=== PATIENT | female | born 1960 | race Caucasian/White ===

== ENCOUNTER 2022-08-29 17:29 | Inpatient (IN) | payer OTHER ==
--- OUTSIDE RECORDS SUMMARY | 2022-08-29 17:34 | XMS REPORT | Continuity of Care Document ---
:1960 Author Organization [facility] t Address [address] [place] [address] Care Team Providers Name Role Phone MICHALE HAYWARD Primary Care Physician Unavailable JASPER KENNEDY Attending Clinician Unavailable Doctor Unassigned, [place] Attending Clinician Unavailable Jasper Kennedy MD Attending Clinician [phone] Michael Hayward NP Attending Clinician INNA IVEY Attending Clinician Unavailable Inna Ivey MD Attending Clinician [phone] Only, Adc Test Attending Clinician Unavailable MICHAEL HAYWARD Attending Clinician Unavailable Gurdeep RAYGOZA, Anny Attending Clinician Unavailable Zion Garcia MD Attending Clinician Ange Grimaldo MD Attending Clinician ANGE GRIMALDO Attending Clinician Unavailable Radiology Attending Clinician Unavailable RADIOLOGY Attending Clinician Unavailable ALVA KIRBY Attending Clinician Unavailable Alva Jovel Attending Clinician Carole CARDENAS, Alva Attending Clinician Unavailable Alin Maya MD Attending Clinician Tyler King MD Attending Clinician Chase Chappell DO Attending Clinician [facility] Attending Clinician Unavailable Verito Irizarry MD Attending Clinician VERITO IRIZARRY Attending Clinician Unavailable RISHABH JOYNER Attending Clinician Unavailable Christie Lopez MD Attending Clinician Rishabh Joyner DO Attending Clinician Rishabh Joyner DO Attending Clinician DR BARRINGTON NARVAEZ Attending Clinician Unavailable DR ENOC HENSON Attending Clinician Unavailable JASPER KENNEDY Admitting Clinician Unavailable Jasper Kennedy MD Admitting Clinician [phone] B[place] NARVAEZ Admitting Clinician Unavailable DR ENOC HENSON Admitting Clinician Unavailable Payers Payer Name Policy Type Policy Number Effective Date Expiration Date Nic anglin [facility] [id number] 2020 00:00:00 PLUS Problems Condition Condition Condition Status Onset Resolution Last Treating Co mments Source Name Details Category Date Date Treatment Clinician Date Arthritis Arthritis Disease Active Overview: Univers of right of right 5-03 Formattin ity of acromiocla acromiocla 00:00: g of this [place] vicular vicular 00 note Medical joint joint might be Branch different from the original. 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 00 Ce nter disorder disorder Primary Primary Disease Active [facility] 3-10 [facility] Hyperchole Hyperchole Disease Active [facility] steremia steremia 9-24 [facility] Acute Acute Disease Active [facility] bilateral bilateral 9-11 [facility] low back low back 00:00: Medica l pain pain 00 Center without without sciatica sciatica Encounter Encounter Disease Active [facility] for for 9-11 [facility] long-term long-term 00:00: Medi florentin current current 00 Center use of use of medication medication Allergies, Adverse Reactions, Alerts Allergy Allergy Status Severity Reaction(s) Onset Inactive Treating Comm ents Source Name Type Date Date Clinician NO KNOWN Drug Active Univers ALLERGIE Class ity of [facility] NO KNOWN Allergy Active [facility] Family History Family Member Diagnosis Comments Start Date Stop Date Source Natural father COPD [facility] Social History Social Habit Start Date Stop Date Quantity Comments Source History of Current smoker University of tobacco use [facility] Exposure to 2022-07-22 2022-08-01 Not sure University of SARS-CoV-2 00:00:00 10:02:00 [facility] (event) Branch Alcohol intake 2022-04-18 2022-04-18 Current drinker LORENE rossi [place] 00:00:00 00:00:00 of alcohol [facility] (finding) Tobacco use and 2019-02-25 2019-02-25 Never used LORENE Nuno exposure 00:00:00 00:00:00 [facility] Center Sex Ass[birth year] At [birth year] F LORENE Nuno 00:00:00 00:00:00 [facility] Center Smoking Status Start Date Stop Date Source Former smoker 2019-02-25 00:00:00 2019-02-25 00:00:00 [facility] Medications Ordered Filled Start Stop Current Ordering Indication Dosage Frequency Signature Comments Components Source Medication Medication Date Date Medication? Clinician (SIG) Name Name naproxen 2021- Yes 250mg Take 250 Univ ers 250 mg 7-15 mg by ity of tablet 00:39: mouth 2 [place] ([facility]) Medical times Branch daily with meals. naproxen 2021-0 Yes 250mg Take 250 Univ ers 250 mg 7-15 mg by ity of tablet 00:39: mouth [address] [place] [address] ([facility]) Medical times Branch daily with meals. naproxen 2021-0 Yes 250mg Take 250 Univ ers 250 mg 7-15 mg by ity of tablet 00:39: mouth [address] [place] [address] (two) Medical times Branch daily with meals. naproxen 2021-0 Yes 250mg Take 250 Univ ers 250 mg 7-15 mg by ity of tablet 00:39: mouth 2 [place] (two) Medical times Branch daily with meals. naproxen 2021-0 Yes 250mg Take 250 Univ ers 250 mg 7-15 mg by ity of tablet 00:39: mouth 2 [place] ([facility]) Medical times Branch daily with meals. naproxen 2021-0 Yes 250mg Take 250 Univ ers 250 mg 7-15 mg by ity of tablet 00:39: mouth 2 [place] (two) Medical times Branch daily with meals. naproxen 2021-0 Yes 250mg Take 250 Univ ers 250 mg 7-15 mg by ity of tablet 00:39: mouth 2 [place] (two) Medical times Branch daily with meals. naproxen 2021-0 Yes 250mg Take 250 Univ ers 250 mg 7-15 mg by ity of tablet 00:39: mouth 2 [place] (two) Medical times Branch daily with meals. naproxen 2021-0 Yes 250mg Take 250 Univ ers 250 mg 7-15 mg by ity of tablet 00:39: mouth 2 [place] (two) Medical times Branch daily with meals. azithromyci 0 Yes 500mg Take 500 U nivers n 500 mg 7-13 mg by ity of tablet 12:39: mouth. [address] calcium 0 Yes 1250mg Take 1,250 Un td carbonate 7-13 mg by ity of 500 mg 12:39: mouth. [place] [address] Medical (1,250 mg) Branch capsule acidophilus 0 Yes 1{packe Take 1 U nivers 100 million 7-13 t} Packet by ity of cell tablet 12:39: mouth. [address] folic 0 Yes Take by Univers acid/multiv 7-13 mouth. ity of it-min/lute 12:39: [place] in ([address] SILVER Branch ORAL) azithromyci 2021-0 Yes 500mg Take 500 U nivers n 500 mg 7-13 mg by ity of tablet 12:39: mouth. [address] calcium 2021-0 Yes 1250mg Take 1,250 Un td carbonate 7-13 mg by ity of 500 mg 12:39: mouth. [place] calcium 58 Medical (1,250 mg) Branch capsule acidophilus 2021-0 Yes 1{packe Take 1 U nivers 100 million 7-13 t} Packet by ity of cell tablet 12:39: mouth. [address] Branch folic 2021-0 Yes Take by Univers acid/multiv 7-13 mouth. ity of it-min/lute 12:39: [place] in ([place] [address] Medical SILVER Branch ORAL) azithromyci 0 Yes 500mg Take 500 U nivers n 500 mg 7-13 mg by ity of tablet 12:39: mouth. [place] [address] Medical Branch calcium 0 Yes 1250mg Take 1,250 Un td carbonate 7-13 mg by ity of 500 mg 12:39: mouth. [place] calcium 58 Medical (1,250 mg) Branch capsule acidophilus 0 Yes 1{packe Take 1 U nivers 100 million 7-13 t} Packet by ity of cell tablet 12:39: mouth. [address] Branch folic 0 Yes Take by Univers acid/multiv 7-13 mouth. ity of it-min/lute 12:39: [place] in ([address] Branch ORAL) azithromyci 0 Yes 500mg Take 500 U nivers n 500 mg 7-13 mg by ity of tablet 12:39: mouth. [place] [address] Medical Branch calcium 0 Yes 1250mg Take 1,250 Un td carbonate 7-13 mg by ity of 500 mg 12:39: mouth. [place] calcium 58 Medical (1,250 mg) Branch capsule acidophilus 0 Yes 1{packe Take 1 U nivers 100 million 7-13 t} Packet by ity of cell tablet 12:39: mouth. [address] Branch folic 0 Yes Take by Univers acid/multiv 7-13 mouth. ity of it-min/lute 12:39: [place] in ([address] SILVER Branch ORAL) azithromyci 0 Yes 500mg Take 500 U nivers n 500 mg 7-13 mg by ity of tablet 12:39: mouth. [place] [address] Medical Branch calcium 0 Yes 1250mg Take 1,250 Un td carbonate 7-13 mg by ity of 500 mg 12:39: mouth. [place] calcium 58 Medical (1,250 mg) Branch capsule acidophilus 0 Yes 1{packe Take 1 U nivers 100 million 7-13 t} Packet by ity of cell tablet 12:39: mouth. [address] Branch folic 0 Yes Take by Univers acid/multiv 7-13 mouth. ity of it-min/lute 12:39: [place] in ([place] [address] Medical SILVER Branch ORAL) azithromyci 2022-0 Yes 500mg Take 500 U nivers n 500 mg 7-13 mg by ity of tablet 12:39: mouth. [place] [address] Medical Branch calcium 2021-0 Yes 1250mg Take 1,250 Un td carbonate 7-13 mg by ity of 500 mg 12:39: mouth. [place] calcium 58 Medical (1,250 mg) Branch capsule acidophilus 0 Yes 1{packe Take 1 U nivers 100 million 7-13 t} Packet by ity of cell tablet 12:39: mouth. [address] Branch folic 0 Yes Take by Univers acid/multiv 7-13 mouth. ity of it-min/lute 12:39: [place] in ([place] [address] Medical SILVER Branch ORAL) azithromyci 2021-0 Yes 500mg Take 500 U nivers n 500 mg 7-13 mg by ity of tablet 12:39: mouth. [place] [address] Medical Branch calcium 2021-0 Yes 1250mg Take 1,250 Un td carbonate 7-13 mg by ity of 500 mg 12:39: mouth. [place] calcium 58 Medical (1,250 mg) Branch capsule acidophilus 0 Yes 1{packe Take 1 U nivers 100 million 7-13 t} Packet by ity of cell tablet 12:39: mouth. [address] folic 0 Yes Take by Univers acid/multiv 7-13 mouth. ity of it-min/lute 12:39: [place] in ([address] Branch ORAL) azithromyci 2021-0 Yes 500mg Take 500 U nivers n 500 mg 7-13 mg by ity of tablet 12:39: mouth. [place] [address] Medical Branch calcium 2021-0 Yes 1250mg Take 1,250 Un td carbonate 7-13 mg by ity of 500 mg 12:39: mouth. [place] calcium 58 Medical (1,250 mg) Branch capsule acidophilus 2021-0 Yes 1{packe Take 1 U nivers 100 million 7-13 t} Packet by ity of cell tablet 12:39: mouth. [address] Branch folic 0 Yes Take by Univers acid/multiv 7-13 mouth. ity of it-min/lute 12:39: [place] in ([place] [address] Medical SILVER Branch ORAL) azithromyci 2022-0 Yes 500mg Take 500 U nivers n 500 mg 7-13 mg by ity of tablet 12:39: mouth. [place] [address] Medical Branch calcium 0 Yes 1250mg Take 1,250 Un td carbonate 7-13 mg by ity of 500 mg 12:39: mouth. [place] [address] Medical (1,250 mg) Branch capsule acidophilus Yes 1{packe Take 1 U nivers 100 million 7-13 t} Packet by ity of cell tablet 12:39: mouth. [address] Branch folic Yes Take by Univers acid/multiv 7-13 mouth. ity of it-min/lute 12:39: [place] in (CENTRUM 58 Medical SILVER Branch ORAL) Lactobacill 2021-0 2021- No 1{packe Q.5D Take [address] [facility] us 7-05 07-05 t} packet by [facility] acidoph-L.b 11:05: 00:00 mouth 2 Me dical ulgar 39 :00 (two) Center (LACTINEX,F times LORANEX) daily. 100 million cell oral granules azithromyci Yes 500mg QD Take [address] n 7-05 mg by [facility] (ZITHROMAX) 09:51: mouth Medic al 500 MG 13 daily. [place] tablet calcium Yes 1250mg Take 1,[address] carbonate 7-05 mg by [facility] 1250 MG 09:51: mouth 2 Medical capsule 13 (two) Center times daily with breakfast and dinner. folic Yes Take by [facility] acid/multiv 7-05 mouth. [facility] it-min/lute 09:51: Medica l in (CENTRUM 13 Center SILVER ORAL) fluconazole Yes 150mg Take [address] (DIFLUCAN) 7-05 mg by [facility] 150 MG 09:51: mouth Medical tablet 13 once. [place] HYDROcodone Yes 1{tbl} Take [address] -acetaminop 7-05 tablet by Chris robison (NORCO 09:51: mouth Medica l 10-325) 13 every 6 Center 10-325 mg (six) per tablet hours as needed for Pain. traZODone Yes Anxiety 100mg QD Take [address] (DESYREL) 7-05 tablet [facility] 100 MG 00:00: (100 mg Medical tablet 00 total) by Center mouth nightly. PARoxetine Yes Depression, 40mg QD Take [address] [facility] (PAXIL) 40 7-05 unspecified tablet (40 [facility] MG tablet 00:00: depression mg total) Medical 00 type by mouth Center every morning. meloxicam Yes Arthritis 15mg QD Take [address] (MOBIC) 15 7-05 tablet (15 Chris es MG tablet 00:00: mg total) Med ical 00 by mouth Center daily. atorvastati 2022- No Encounter 20mg QD Take [address] [facility] n (Lipitor) 04-18 07-05 for tablet (20 L ukes 20 MG 00:00: 23:59 long-term mg total) M edical tablet 00 :00 current use by mouth Ce nter of daily. medication atorvastati 2021- No Encounter 20mg QD Take [address] [facility] n (Lipitor) 04-18-05 for tablet (20 L ukes 20 MG 00:00: 00:00 long-term mg total) M edical tablet 00 :00 current use by mouth Ce nter of daily. medication meloxicam 2021- No Arthritis 15mg QD Take [address] [facility] (MOBIC) 15 04-18 07-05 tablet (15 Anna kes MG tablet 00:00: 00:00 mg total) Me dical 00 :00 by mouth Center daily. PARoxetine 2021- No Depression, 40mg QD Take [address] [facility] (PAXIL) 40 04-18 07-05 unspecified tablet (40 [facility] MG tablet 00:00: 00:00 depression mg total) Medical 00 :00 type by mouth Center every morning. HYDROcodone Yes 2 (two) Uni vers -acetaminop 4-18 times ity of hen 7.5-325 00:[place] per 00 Medical tablet Branch pregabalin Yes Univers 100 mg 4-18 ity of capsule 00:00: [place] 00 Medical Branch HYDROcodone 2021- Yes 2 (two) Uni vers -acetaminop 4-18 times ity of hen 7.5-325 00:00: [place]. [place] mg per 00 Medical tablet Branch pregabalin 2022-0 Yes Univers 100 mg 4-18 ity of capsule 00:00: Medical Branch HYDROcodone 2022-0 Yes 2 (two) Uni vers -acetaminop 4-18 times ity of hen 7.5-325 00:00: daily. [place] mg per 00 Medical tablet Branch pregabalin 2-0 Yes Univers 100 mg 4-18 ity of capsule 00:00: Medical Branch HYDROcodone 2022-0 Yes 2 (two) Uni vers -acetaminop 4-18 times ity of hen 7.5-325 00:00: daily. [place] mg per 00 Medical tablet Branch pregabalin 2-0 Yes Univers 100 mg 4-18 ity of capsule 00:00: Medical Branch HYDROcodone 2022-0 Yes 2 (two) Uni vers -acetaminop 4-18 times ity of hen 7.5-325 00:00: daily. [place] mg per 00 Medical tablet Branch pregabalin 2021-0 Yes Univers 100 mg 4-18 ity of capsule 00:00: Medical Branch HYDROcodone 2022-0 Yes 2 (two) Uni vers -acetaminop 4-18 times ity of hen 7.5-325 00:00: daily. [place] mg per 00 Medical tablet Branch pregabalin 2-0 Yes Univers 100 mg 4-18 ity of capsule 00:00: Medical Branch HYDROcodone 2022-0 Yes 2 (two) Uni vers -acetaminop 4-18 times ity of hen 7.5-325 00:00: daily. [place] mg per 00 Medical tablet Branch pregabalin 2022-0 Yes Univers 100 mg 4-18 ity of capsule 00:00: Medical Branch HYDROcodone 2022-0 Yes 2 (two) Uni vers -acetaminop 4-18 times ity of hen 7.5-325 00:00: daily. [place] mg per 00 Medical tablet Branch pregabalin 2022-0 Yes Univers 100 mg 4-18 ity of capsule 00:00: Medical Branch HYDROcodone 2022-0 Yes 2 (two) Uni vers -acetaminop 4-18 times ity of hen 7.5-325 00:00: daily. [place] mg per 00 Medical tablet Branch pregabalin 0 Yes Univers 100 mg 4-18 ity of capsule 00:00: [address] PARoxetine 2-0 Yes daily. Unive rs 40 mg 4-12 ity of tablet 00:00: [address] PARoxetine 2-0 Yes daily. Unive rs 40 mg 4-12 ity of tablet 00:00: [address] PARoxetine 2-0 Yes daily. Unive rs 40 mg 4-12 ity of tablet 00:00: [address] PARoxetine 2-0 Yes daily. Unive rs 40 mg 4-12 ity of tablet 00:00: [address] PARoxetine 2021-0 Yes daily. Unive rs 40 mg 4-12 ity of tablet 00:00: [address] PARoxetine 2021-0 Yes daily. Unive rs 40 mg 4-12 ity of tablet 00:00: [address] PARoxetine 2021-0 Yes daily. Unive rs 40 mg 4-12 ity of tablet 00:00: [address] PARoxetine 2021-0 Yes daily. Unive rs 40 mg 4-12 ity of tablet 00:00: [address] PARoxetine 2021-0 Yes daily. Unive rs 40 mg 4-12 ity of tablet 00:00: [address] atorvastati 2021- No Hypercholes 20mg QD Take [address] [facility] n (Lipitor) 01-16-05 teremia tablet (20 [facility] 20 MG 00:00: 00:00 mg total) Medica l tablet 00 :00 by mouth Center daily. meloxicam 2021- No Arthritis 15mg QD Take [address] [facility] (MOBIC) 15 01-09-05 tablet (15 Anna kes MG tablet 00:00: 00:00 mg total) Me dical 00 :00 by mouth Center daily. PARoxetine 2021- No Depression, 40mg QD Take [address] [facility] (PAXIL) 40 01-09-05 unspecified tablet (40 [facility] MG tablet 00:00: 00:00 depression mg total) Medical 00 :00 type by mouth Center every morning. pravastatin 2021- No Hypercholes 20mg QD Take [address] [facility] (PRAVACHOL) 3-28 07-05 teremia tablet (20 [facility] 20 MG 00:00: 00:00 mg total) Medica l tablet 00 :00 by mouth Center every evening. traZODone No Anxiety 100mg QD Take [address] (DESYREL) 01-09 tablet [facility] 100 MG 00:00: 00:00 (100 mg Medical tablet 00 :00 total) by Center mouth nightly. nicotine 2021- No Encounter 1{patch Q24H Place [address] [facility] (NICODERM 01-09 for smoking } patch onto [facility] CQ) 21 00:00: 00:00 cessation the skin M edical mg/24 hr 00 :[address] patch traZODone 2021- No Anxiety 50mg QD Take [address] (DESYREL) 01-03 tablet (50 Chris es 50 MG 00:00: 00:00 mg total) Medica l tablet 00 :00 by mouth Center every evening. traZODone 2021- No Anxiety 50mg QD Take [address] (DESYREL) 01-03 tablet (50 Chris es 50 MG 00:00: 00:00 mg total) Medica l tablet 00 :00 by mouth Center every evening. traZODone 2021- No Anxiety 50mg QD Take [address] (DESYREL) 01-02 tablet (50 Chris es 50 MG 00:00: 00:00 mg total) Medica l tablet 00 :00 by mouth Center every evening. PARoxetine 2021- No Depression, TAKE ONE [facility] (PAXIL) 40 12-27 unspecified TABLET BY [facility] MG tablet 00:00: 00:00 depression MOUTH Medical 00 :00 type EVERY Center MORNING meloxicam 2021- No Arthritis TAKE ONE [facility] (MOBIC) 15 12-27 TABLET BY Chris es MG tablet 00:00: 00:00 MOUTH Medica l 00 :00 DAILY Center pravastatin 2021- No Hypercholes TAKE ONE [facility] (PRAVACHOL) 12-27 teremia TABLET BY [facility] 20 MG 00:00: 00:00 MOUTH Medical tablet 00 :00 EVERY Center EVENING hydrocortis 2022-0 Yes [id number] Apply to Univers one 2.5 % 2-09 affected ity of cream 00:00: area(s) 2 [place] 00 (two) Medical times Branch daily. Safe for the face. hydrocortis 2022-0 Yes [id number] Apply to Univers one 2.5 % 2-09 affected ity of cream 00:00: area(s) 2 [place] 00 (two) Medical times Branch daily. Safe for the face. hydrocortis 2022-0 Yes [id number] Apply to Univers one 2.5 % 2-09 affected ity of cream 00:00: area(s) 2 [place] 00 (two) Medical times Branch daily. Safe for the face. hydrocortis 2022-0 Yes [id number] Apply to Univers one 2.5 % 2-09 affected ity of cream 00:00: area(s) 2 [place] 00 (two) Medical times Branch daily. Safe for the face. hydrocortis 2022-0 Yes [id number] Apply to Univers one 2.5 % 2-09 affected ity of cream 00:00: area(s) 2 [place] 00 (two) Medical times Branch daily. Safe for the face. hydrocortis 2022-0 Yes [id number] Apply to Univers one 2.5 % 2-09 affected ity of cream 00:00: area(s) 2 [place] 00 (two) Medical times Branch daily. Safe for the face. hydrocortis 2022-0 Yes [id number] Apply to Univers one 2.5 % 2-09 affected ity of cream 00:00: area(s) 2 [place] 00 (two) Medical times Branch daily. Safe for the face. hydrocortis 2022-0 Yes [id number] Apply to Univers one 2.5 % 2-09 affected ity of cream 00:00: area(s) 2 [place] 00 (two) Medical times Branch daily. Safe for the face. hydrocortis 2022-0 Yes [id number] Apply to Univers one 2.5 % 2-09 affected ity of cream 00:00: area(s) 2 [place] 00 (two) Medical times Branch daily. Safe for the face. triamcinolo 2022-0 Yes [id number] Apply to Univers ne 1-26 area(s) 2 ity of acetonide 00:00: (two) [place] 0.1 % cream 00 times Medical daily. Branch Avoid face, armpits, and groin. triamcinolo 2022-0 Yes [id number] Apply to [facility] 1-26 area(s) 2 ity of acetonide 00:00: (two) [place] 0.1 % cream 00 times Medical daily. Branch Avoid face, armpits, and groin. triamcinolo 2022-0 Yes [id number] Apply to [facility] [place] [facility] 1-26 area(s) 2 ity of acetonide 00:00: (two) [place] 0.1 % cream 00 times Medical daily. Branch Avoid face, armpits, and groin. triamcinolo 2-0 Yes [id number] Apply to [facility] [place] [facility] 1-26 area(s) 2 ity of acetonide 00:00: (two) [place] 0.1 % cream 00 times Medical daily. Branch Avoid face, armpits, and groin. triamcinolo 2021-0 Yes [id number] Apply to [facility] [place] [facility] 1-26 area(s) 2 ity of acetonide 00:00: (two) [place] 0.1 % cream 00 times Medical daily. Branch Avoid face, armpits, and groin. triamcinolo 2021-0 Yes [id number] Apply to [facility] [place] [facility] 1-26 area(s) 2 ity of acetonide 00:00: (two) [place] 0.1 % cream 00 times Medical daily. Branch Avoid face, armpits, and groin. triamcinolo 2021-0 Yes [id number] Apply to [facility] [place] [facility] 1-26 area(s) 2 ity of acetonide 00:00: (two) [place] 0.1 % cream 00 times Medical daily. Branch Avoid face, armpits, and groin. triamcinolo 2-0 Yes [id number] Apply to [facility] [place] [facility] 1-26 area(s) 2 ity of acetonide 00:00: (two) [place] 0.1 % cream 00 times Medical daily. Branch Avoid face, armpits, and groin. triamcinolo 2-0 Yes [id number] Apply to [facility] [place] [facility] 1-26 area(s) 2 ity of acetonide 00:00: (two) [place] 0.1 % cream 00 times Medical daily. Branch Avoid face, armpits, and groin. calcipotrie 2020 Yes [id number] Apply to Univers ne-betameth 2-06 area(s) 2 ity of asone 00:00: (two) [place] 0.005-0.064 00 times Medical % ointment daily. Branch calcipotrie 2020-10 Yes [id number] Apply to Univers ne-betameth 2-06 area(s) 2 ity of asone 00:00: (two) [place] 0.005-0.064 00 times Medical % ointment daily. Branch calcipotrie 2020-10 Yes [id number] Apply to Univers ne-betameth 2-06 area(s) 2 ity of asone 00:00: (two) [place] 0.005-0.064 00 times Medical % ointment daily. Branch calcipotrie 2020-10 Yes [id number] Apply to [facility] ne-betameth 2-06 area(s) 2 ity of asone 00:00: (two) [place] 0.005-0.064 00 times Medical % ointment daily. Branch calcipotrie 2020-10 Yes [id number] Apply to Univers ne-betameth 2-06 area(s) 2 ity of asone 00:00: (two) [place] 0.005-0.064 00 times Medical % ointment daily. Branch calcipotrie 2020-10 Yes [id number] Apply to Univers ne-betameth 2-06 area(s) 2 ity of asone 00:00: (two) [place] 0.005-0.064 00 times Medical % ointment daily. Branch calcipotrie 2020-10 Yes [id number] Apply to Univers ne-betameth 2-06 area(s) 2 ity of asone 00:00: (two) [place] 0.005-0.064 00 times Medical % ointment daily. Branch calcipotrie 2020-10 Yes [id number] Apply to Univers ne-betameth 2-06 area(s) 2 ity of asone 00:00: (two) [place] 0.005-0.064 00 times Medical % ointment daily. Branch calcipotrie 2020-10 Yes [id number] Apply to Univers ne-betameth 2-06 area(s) 2 ity of asone 00:00: (two) [place] 0.005-0.064 00 times Medical % ointment daily. Branch traZODone 2021- No Anxiety 50mg QD Take [address] (DESYREL) 07-01- tablet (50 Chris es 50 MG 00:00: 00:00 mg total) Medica l tablet 00 :00 by mouth Center every evening. pravastatin 2021- No Hypercholes 20mg QD Take [address] [facility] (PRAVACHOL) 07-01-15 teremia tablet (20 [facility] 20 MG 00:00: 00:00 mg total) Medica l tablet 00 :00 by mouth Center every evening. meloxicam 2021- No Arthritis 15mg QD Take [address] [facility] (MOBIC) 15 07-01-15 tablet (15 Anna kes MG tablet 00:00: 00:00 mg total) Me dical 00 :00 by mouth Center daily. PARoxetine 2021- No Depression, 40mg QD Take [address] [facility] (PAXIL) 40 07-01-15 unspecified tablet (40 [facility] MG tablet 00:00: 00:00 depression mg total) Medical 00 :00 type by mouth Center every morning. Fluocinolon Yes [id number] One drop Univers e Acetonide 9-10 inside ear it y of Oil 00:00: canal on [place] (DERMOTIC 00 each side Medic al OIL) 0.01 % once a day Br anch otic drops Fluocinolon 2020- Yes [id number] One drop Univers e Acetonide 9-10 inside ear it y of Oil 00:00: canal on [place] (DERMOTIC 00 each side Medic al OIL) 0.01 % once a day Br anch otic drops Fluocinolon 2020-0 Yes [id number] One drop Univers e Acetonide 9-10 inside ear it y of Oil 00:00: canal on [place] (DERMOTIC 00 each side Medic al OIL) 0.01 % once a day Br anch otic drops Fluocinolon 2020-0 Yes [id number] One drop Univers e Acetonide 9-10 inside ear it y of Oil 00:00: canal on [place] (DERMOTIC 00 each side Medic al OIL) 0.01 % once a day Br anch otic drops Fluocinolon 2020-0 Yes [id number] One drop Univers e Acetonide 9-10 inside ear it y of Oil 00:00: canal on [place] (DERMOTIC 00 each side Medic al OIL) 0.01 % once a day Br anch otic drops Fluocinolon 2021-0 Yes [id number] One drop Univers e Acetonide 9-10 inside ear it y of Oil 00:00: canal on [place] (DERMOTIC 00 each side Medic al OIL) 0.01 % once a day Br anch otic drops Fluocinolon 2021-0 Yes [id number] One drop Univers e Acetonide 9-10 inside ear it y of Oil 00:00: canal on [place] (DERMOTIC 00 each side Medic al OIL) 0.01 % once a day Br anch otic drops Fluocinolon 2021-0 Yes [id number] One drop Univers e Acetonide 9-10 inside ear it y of Oil 00:00: canal on [place] (DERMOTIC 00 each side Medic al OIL) 0.01 % once a day Br anch otic drops Fluocinolon 2021-0 Yes [id number] One drop Univers e Acetonide 9-10 inside ear it y of Oil 00:00: canal on [place] (DERMOTIC 00 each side Medic al OIL) 0.01 % once a day Br anch otic drops clobetasoL 2021-0 Yes [id number] Apply to Univers 0.05 % 9-01 area(s) 2 ity of cream 00:00: (two) [place] 00 times Medical daily. Branch Avoid face, armpits, and groin. clotrimazol 2021-0 Yes [id number] Apply to Univers e 1 % 9-01 area(s) 2 ity of topical 00:00: (two) [place] cream 00 times Medical daily. Branch clobetasoL 2021-0 Yes [id number] Apply to Univers 0.05 % 9-01 area(s) 2 ity of cream 00:00: (two) [place] 00 times Medical daily. Branch Avoid face, armpits, and groin. clotrimazol 2021-0 Yes [id number] Apply to Univers e 1 % 9-01 area(s) 2 ity of topical 00:00: (two) [place] cream 00 times Medical daily. Branch clobetasoL 2021-0 Yes [id number] Apply to Univers 0.05 % 9-01 area(s) 2 ity of cream 00:00: (two) [place] 00 times Medical daily. Branch Avoid face, armpits, and groin. clotrimazol 2021-0 Yes [id number] Apply to Univers e 1 % 9-01 area(s) 2 ity of topical 00:00: (two) [place] cream 00 times Medical daily. Branch clobetasoL 2021-0 Yes [id number] Apply to Univers 0.05 % 9-01 area(s) 2 ity of cream 00:00: (two) [place] 00 times Medical daily. Branch Avoid face, armpits, and groin. clotrimazol 2021-0 Yes [id number] Apply to Univers e 1 % 9-01 area(s) 2 ity of topical 00:00: (two) [place] cream 00 times Medical daily. Branch clobetasoL 2021-0 Yes [id number] Apply to Univers 0.05 % 9-01 area(s) 2 ity of cream 00:00: (two) [place] 00 times Medical daily. Branch Avoid face, armpits, and groin. clotrimazol 2021-0 Yes [id number] Apply to Univers e 1 % 9-01 area(s) 2 ity of topical 00:00: (two) [place] cream 00 times Medical daily. Branch clobetasoL 2021-0 Yes [id number] Apply to Univers 0.05 % 9-01 area(s) 2 ity of cream 00:00: (two) [place] 00 times Medical daily. Branch Avoid face, armpits, and groin. clotrimazol 2021-0 Yes [id number] Apply to Univers e 1 % 9-01 area(s) 2 ity of topical 00:00: (two) [place] cream 00 times Medical daily. Branch clobetasoL 2021-0 Yes [id number] Apply to Univers 0.05 % 9-01 area(s) 2 ity of cream 00:00: (two) [place] 00 times Medical daily. Branch Avoid face, armpits, and groin. clotrimazol 2021-0 Yes [id number] Apply to Univers e 1 % 9-01 area(s) 2 ity of topical 00:00: (two) [place] cream 00 times Medical daily. Branch clobetasoL 2021-0 Yes [id number] Apply to Univers 0.05 % 9-01 area(s) 2 ity of cream 00:00: (two) [place] 00 times Medical daily. Branch Avoid face, armpits, and groin. clotrimazol 2020-0 Yes [id number] Apply to Univers e 1 % 9-01 area(s) 2 ity of topical 00:00: (two) [place] cream 00 times Medical daily. Branch clobetasoL 2020-0 Yes [id number] Apply to Univers 0.05 % 9 area(s) 2 ity of cream 00:00: (two) [place] 00 times Medical daily. Branch Avoid face, armpits, and groin. clotrimazol 2020-0 Yes [id number] Apply to Univers e 1 % 9 area(s) 2 ity of topical 00:00: (two) [place] cream 00 times Medical daily. Branch clotrimazol 2019-10 Yes APPLY TO [facility] e-betametha 0-06 AFFECTED Luke s sone 00:00: AREA(S) Medical (LOTRISONE) [address] 1-0.05 % A DAY. cream pravastatin 2020-0 Yes Univer s 20 mg 9-08 ity of tablet 00:00: [place] 00 Medical Branch pravastatin 2020-0 Yes Univer s 20 mg 9-08 ity of tablet 00:00: [place] [address] Medical Branch pravastatin 2020-0 Yes Univer s 20 mg 9-08 ity of tablet 00:00: [place] [address] Medical Branch pravastatin 2020-0 Yes Univer s 20 mg 9-08 ity of tablet 00:00: [place] [address] Medical Branch pravastatin 2020-0 Yes Univer s 20 mg 9-08 ity of tablet 00:00: [place] 00 Medical Branch pravastatin 2020-0 Yes Univer s 20 mg 9-08 ity of tablet 00:00: [place] 00 Medical Branch pravastatin 2020-0 Yes Univer s 20 mg 9-08 ity of tablet 00:00: [place] [address] Medical Branch pravastatin 2020-0 Yes Univer s 20 mg 9-08 ity of tablet 00:00: [place] [address] Medical Branch pravastatin 2020-0 Yes Univer s 20 mg 9-08 ity of tablet 00:00: [place] [address] Medical Branch cyclobenzap 2020-0 Yes Univer s rine 10 mg 9-01 ity of tablet 00:00: [place] [address] Medical Branch cyclobenzap 2020-0 Yes Univer s rine 10 mg 9-01 ity of tablet 00:00: [place] 00 Medical Branch cyclobenzap 2020-0 Yes Univer s rine 10 mg 9-01 ity of tablet 00:00: [place] 00 Medical Branch cyclobenzap 2020-0 Yes Univer s rine 10 mg 9-01 ity of tablet 00:00: [place] [address] Medical Branch cyclobenzap 2020-0 Yes Univer s rine 10 mg 9-01 ity of tablet 00:00: [place] [address] Medical Branch cyclobenzap 2020-0 Yes Univer s rine 10 mg 9-01 ity of tablet 00:00: [place] [address] Medical Branch cyclobenzap 2020-0 Yes Univer s rine 10 mg 9-01 ity of tablet 00:00: [place] [address] Medical Branch cyclobenzap 2020-0 Yes Univer s rine 10 mg 9-01 ity of tablet 00:00: [place] [address] Medical Branch cyclobenzap 2020-0 Yes Univer s rine 10 mg 9-01 ity of tablet 00:00: [place] [address] Medical Branch fluconazole 2020-0 Yes Univer s 150 mg 8-27 ity of tablet 00:00: [place] [address] Medical Branch fluconazole 2020-0 Yes Univer s 150 mg 8-27 ity of tablet 00:00: [place] [address] Medical Branch fluconazole 2020-0 Yes Univer s 150 mg 8-27 ity of tablet 00:00: [place] [address] Medical Branch fluconazole 2020-0 Yes Univer s 150 mg 8-27 ity of tablet 00:00: [place] [address] Medical Branch fluconazole 2020-0 Yes Univer s 150 mg 8-27 ity of tablet 00:00: [place] [address] Medical Branch fluconazole 2020-0 Yes Univer s 150 mg 8-27 ity of tablet 00:00: [place] [address] Medical Branch fluconazole 2020-0 Yes Univer s 150 mg 8-27 ity of tablet 00:00: [place] [address] Medical Branch fluconazole 2020-0 Yes Univer s 150 mg 8-27 ity of tablet 00:00: [place] [address] Medical Branch fluconazole 2020-0 Yes Univer s 150 mg 8-27 ity of tablet 00:00: [place] [address] Medical Branch meloxicam 2020-0 Yes TAKE ONE Univ ers 15 mg 8-10 TABLET BY ity of tablet 00:00: MOUTH [place] [address] DAILY Medical Branch traZODone 2020-0 Yes Univers 50 mg 8-10 ity of tablet 00:00: [place] [address] Medical Branch meloxicam 2020-0 Yes TAKE ONE Univ ers 15 mg 8-10 TABLET BY ity of tablet 00:00: MOUTH [place] DAILY Medical Branch traZODone 2020-0 Yes Univers 50 mg 8-10 ity of tablet 00:00: [place] Medical Branch meloxicam 2020-0 Yes TAKE ONE Univ ers 15 mg 8-10 TABLET BY ity of tablet 00:00: MOUTH [place] DAILY Medical Branch traZODone 2020-0 Yes Univers 50 mg 8-10 ity of tablet 00:00: [place] [facility] Branch meloxicam 2019-0 Yes TAKE ONE Univ ers 15 mg 8-10 TABLET BY ity of tablet 00:00: MOUTH [place] DAILY Medical Branch traZODone 2019-0 Yes Univers 50 mg 8-10 ity of tablet 00:00: [place] [facility] Branch meloxicam 2019-0 Yes TAKE ONE Univ ers 15 mg 8-10 TABLET BY ity of tablet 00:00: MOUTH [place] DAILY Medical Branch traZODone 2020-0 Yes Univers 50 mg 8-10 ity of tablet 00:00: [place] [facility] Branch meloxicam 2019-0 Yes TAKE ONE Univ ers 15 mg 8-10 TABLET BY ity of tablet 00:00: MOUTH [place] DAILY Medical Branch traZODone 2020-0 Yes Univers 50 mg 8-10 ity of tablet 00:00: [place] [facility] Branch meloxicam 2019-0 Yes TAKE ONE Univ ers 15 mg 8-10 TABLET BY ity of tablet 00:00: MOUTH [place] DAILY Medical Branch traZODone 2020-0 Yes Univers 50 mg 8-10 ity of tablet 00:00: [place] [facility] meloxicam 2019-0 Yes TAKE ONE Univ ers 15 mg 8-10 TABLET BY ity of tablet 00:00: MOUTH [place] DAILY Medical Branch traZODone 2020-0 Yes Univers 50 mg 8-10 ity of tablet 00:00: [place] [facility] meloxicam 2019-0 Yes TAKE ONE Univ ers 15 mg 8-10 TABLET BY ity of tablet 00:00: MOUTH [place] DAILY Medical Branch traZODone 2020-0 Yes Univers 50 mg 8-10 ity of tablet 00:00: [place] [facility] Diclofenac 2020-0 Yes Univers Sodium 1 % 8-04 ity of gel 00:00: [place] [facility] ZONALON 5 % 2020-0 Yes Univer s cream 8-04 ity of 00:00: [place] 00 Medical Branch lidocaine-p 2020-0 Yes Univer s rilocaine 8-04 ity of 2.5-2.5 % 00:00: [place] cream 00 Medical Branch Diclofenac 2020-0 Yes Univers Sodium 1 % 8-04 ity of gel 00:00: [place] 00 Medical Branch ZONALON 5 % 2020-0 Yes Univer s cream 8-04 ity of 00:00: [place] 00 Medical Branch lidocaine-p 2020-0 Yes Univer s rilocaine 8-04 ity of 2.5-2.5 % 00:00: [place] cream 00 Medical Branch Diclofenac 2020-0 Yes Univers Sodium 1 % 8-04 ity of gel 00:00: [place] 00 Medical Branch ZONALON 5 % 2020-0 Yes Univer s cream 8-04 ity of 00:00: [place] 00 Medical Branch lidocaine-p 2020-0 Yes Univer s rilocaine 8-04 ity of 2.5-2.5 % 00:00: [place] cream 00 Medical Branch Diclofenac 2020-0 Yes Univers Sodium 1 % 8-04 ity of gel 00:00: [place] 00 Medical Branch ZONALON 5 % 2020-0 Yes Univer s cream 8-04 ity of 00:00: [place] 00 Medical Branch lidocaine-p 2020-0 Yes Univer s rilocaine 8-04 ity of 2.5-2.5 % 00:00: [place] cream 00 Medical Branch Diclofenac 2020-0 Yes Univers Sodium 1 % 8-04 ity of gel 00:00: [place] 00 Medical Branch ZONALON 5 % 2020-0 Yes Univer s cream 8-04 ity of 00:00: [place] 00 Medical Branch lidocaine-p 2020-0 Yes Univer s rilocaine 8-04 ity of 2.5-2.5 % 00:00: [place] cream 00 Medical Branch Diclofenac 2020-0 Yes Univers Sodium 1 % 8-04 ity of gel 00:00: [place] 00 Medical Branch ZONALON 5 % 2020-0 Yes Univer s cream 8-04 ity of 00:00: [place] 00 Medical Branch lidocaine-p 2020-0 Yes Univer s rilocaine 8-04 ity of 2.5-2.5 % 00:00: [place] cream 00 Medical Branch Diclofenac 2020-0 Yes Univers Sodium 1 % 8-04 ity of gel 00:00: [place] 00 Medical Branch ZONALON 5 % 2020-0 Yes Univer s cream 8-04 ity of 00:00: [place] 00 Medical Branch lidocaine-p 2020-0 Yes Univer s rilocaine 8-04 ity of 2.5-2.5 % 00:00: [place] cream 00 Medical Branch Diclofenac 2020-0 Yes Univers Sodium 1 % 8-04 ity of gel 00:00: [place] 00 Medical Branch ZONALON 5 % 2020-0 Yes Univer s cream 8-04 ity of 00:00: [place] 00 Medical Branch lidocaine-p 2020-0 Yes Univer s rilocaine 8-04 ity of 2.5-2.5 % 00:00: [place] cream 00 Medical Branch Diclofenac 2020-0 Yes Univers Sodium 1 % 8-04 ity of gel 00:00: [place] 00 Medical Branch ZONALON 5 % 2020-0 Yes Univer s cream 8-04 ity of 00:00: [place] 00 Medical Branch lidocaine-p 2020-0 Yes Univer s rilocaine 8-04 ity of 2.5-2.5 % 00:00: [place] cream 00 Medical Branch clotrimazol 2020-0 Yes Univer s e-betametha 7-10 ity of sone cream 00:00: [place] 00 Medical Branch clotrimazol 2020-0 Yes Univer s e-betametha 7-10 ity of sone cream 00:00: [place] 00 Medical Branch clotrimazol 2020-0 Yes Univer s e-betametha 7-10 ity of sone cream 00:00: [place] 00 Medical Branch clotrimazol 2020-0 Yes Univer s e-betametha 7-10 ity of sone cream 00:00: [place] 00 Medical Branch clotrimazol 2020-0 Yes Univer s e-betametha 7-10 ity of sone cream 00:00: [place] 00 Medical Branch clotrimazol 2020-0 Yes Univer s e-betametha 7-10 ity of sone cream 00:00: [place] 00 Medical Branch clotrimazol 2020-0 Yes Univer s e-betametha 7-10 ity of sone cream 00:00: [place] 00 Medical Branch clotrimazol 2020-0 Yes Univer s e-betametha 7-10 ity of sone cream 00:00: [place] 00 [facility] clotrimazol 2020-0 Yes Univer s e-betametha 7-10 ity of sone cream 00:00: [place] 00 [facility] Immunizations Ordered Filled Immunization Date Status Comments [facility] e Immunization Name Name SHINGLDORI VARICELLA 2021-08-[address] [facility] (ZOSTAVAX) ZOSTER 00:00:00 [facility] Td 7+ years, 2021-07-[address] [facility] (TDVAX) 2 Lf 00:00:00 [facility] er tetanus toxoid preservative free Influenza Four-QIV 2021-07-[address] [facility] PF 3YR+ ([id number]) 00:00:00 [facility] SHINGLES VARICELLA 2021-05-[address] [facility] (ZOSTAVAX) ZOSTER 00:00:00 [facility] Influenza Four-QIV 2020-09-[address] [facility] PF 3YR+ ([id number]) 00:00:00 [facility] Influenza Virus 2020-08-31 Completed Universit y of Vaccine 00:00:00 [facility] Influenza Virus 2020-08-31 Completed Universit y of Vaccine 00:00:00 [facility] Influenza Virus 2020-08-31 Completed Universit y of Vaccine 00:00:00 [facility] Influenza Virus 2020-08-31 Completed Universit y of Vaccine 00:00:00 [facility] Influenza Virus 2020-08-31 Completed Universit y of Vaccine 00:00:00 [facility] Influenza Virus 2020-08-31 Completed Universit y of Vaccine 00:00:00 [facility] Influenza Virus 2020-08-31 Completed Universit y of Vaccine 00:00:00 [facility] Influenza Virus 2020-08-31 Completed Universit y of Vaccine 00:00:00 [facility] Influenza Virus 2020-08-31 Completed Universit y of Vaccine 00:00:00 [facility] Influenza Four-QIV 2019-07-[address] [facility] PF 3YR+ ([id number]) 00:00:00 [facility] Vital Signs Vital Name Observation Time Observation Value Comments Source Body temperature 2022-08-01 15:13:00 36.17 Karissa [facility] Body height 2022-08-01 15:13:00 [facility] Body weight 2022-08-01 15:13:00 96.163 kg Universi ty [facility] BMI 2022-08-01 15:13:00 35.28 kg/m2 Universi ty [facility] Body temperature 2022-06-20 14:54:00 36.39 Karissa [facility] Body height 2022-06-20 14:54:00 165.1 cm Universi ty [facility] Body weight 2022-06-20 14:54:00 96.48 kg Universi ty [facility] BMI 2022-06-20 14:54:00 35.40 kg/m2 Universi ty [facility] HEIGHT 2021-10-24 16:56:00 160 cm WEIGHT 2021-10-24 16:56:00 92.987 kg HEIGHT 2021-10-24 16:56:00 160 cm WEIGHT 2021-10-24 16:56:00 92.987 kg HEIGHT 2021-07-01 10:09:00 160 cm WEIGHT 2021-07-01 10:09:00 93.622 kg HEIGHT 2020-12-21 10:49:00 160 cm WEIGHT 2020-12-21 10:49:00 90.266 kg HEIGHT 2020-09-21 09:35:00 160 cm WEIGHT 2020-09-21 09:35:00 92.534 kg HEIGHT 2020-03-24 00:00:00 160 cm WEIGHT 2020-03-24 00:00:00 85.911 kg Systolic blood 2022-04-18 10:15:00 120 mm[Hg] [facility] Diastolic blood 2022-04-18 10:15:00 80 mm[Hg] [facility] Heart rate 2022-04-18 10:15:00 71 /min [facility] Body temperature 2022-04-18 10:15:00 36.11 Karissa [facility] Respiratory rate 2022-04-18 10:15:00 18 /min [facility] Body height 2022-04-18 10:15:00 160 cm [facility] Body weight 2022-04-18 10:15:00 94.711 kg [facility] BMI 2022-04-18 10:15:00 36.99 kg/m2 [facility] Oxygen saturation in 2022-04-18 10:15:00 95 /min [facility] Arterial blood by Medical Ce nter Pulse oximetry Procedures Procedure Date / Time Performing Clinician Source Performed REFERRAL- 2022-08-28 06:01:00 [facility] REQUEST/RESPONSE Name Medical Branch CONSENT/REFUSAL FOR 2022-08-01 15:02:47 [facility] Name Medical Branch PHYSICIAN CERTIFICATION 2022-07-24 05:01:00 Doctor Unassigned, N o [facility] STATEMENT Name Medical Branch PHYSICIAN ORDERS 2022-07-10 05:01:00 [facility] Name Medical Branch REFERRAL- 2022-05-17 05:01:00 Doctor Unassigned, [facility] REQUEST/RESPONSE Name [facility] LIPID PANEL 2022-04-18 00:00:00 Michael Hayward [facility] CBC W/PLT COUNT & AUTO 2022-04-18 00:00:00 Michael Hayward [facility] DIFFERENTIAL [place] COMPREHENSIVE METABOLIC 2022-04-18 00:00:00 Michael Hayward [facility] VITAMIN D, 25-HYDROXY 2022-04-18 00:00:00 Michael Hayward [facility] TSH 2022-04-18 00:00:[address] [facility] HEMOGLOBIN A1C 2022-04-18 00:00:[address] [facility] LIPID PANEL 2022-01-09 00:00:00 Michael Hayward [facility] COMPREHENSIVE METABOLIC 2022-01-09 00:00:00 Michael Hayward [facility] CBC W/PLT COUNT & AUTO 2022-01-09 00:00:00 Michael Hayward [facility] VITAMIN D, 25-HYDROXY 2022-01-09 00:00:00 Michael Hayward [facility] 2022-01-09 00:00:00 [facility] 2022-01-09 00:00:[address] [facility] Plan of Care Planned Activity Planned Date Details Comments Source Future Scheduled 2031-07-01 DTAP/TDAP/TD VACCINES [facility] Test 00:00:00 (2 - Td or Tdap) [code Medic al Center = DTAP/TDAP/TD VACCINES (2 - Td or Tdap)] Future Scheduled 2029-04-25 Screening for malignant [facility] Test 00:00:00 neoplasm of colon Medical Ce nter (procedure) [code = 286341853] Future Scheduled 2029-04-25 Screening for malignant [facility] Test 00:00:00 neoplasm of colon Medical Ce nter (procedure) [code = 671410500] Future Scheduled 2025-04-18 Lipid panel (procedure) [facility] Test 00:00:00 [code = 73669556] Medical Ce nter Future Scheduled 2024-03-05 Screening for malignant [facility] Test 00:00:00 neoplasm of cervix Medical C enter (procedure) [code = 995796119] Future Scheduled 2023-07-21 Screening for malignant [facility] Test 00:00:00 neoplasm of breast Medical C enter (procedure) [code = 770719612] Future Scheduled 2022-06-15 INFLUENZA VACCINE (#1) [facility] 00:00:00 [code = INFLUENZA Medical Ce nter VACCINE (#1)] Future Scheduled 2021-09-27 SHINGLES VACCINES ([address] [facility] Test 00:00:00 3) [code = SHINGLES [facility] VACCINES (2 of 3)] Future Scheduled 1961 Screening for malignant [facility] Test 00:00:00 neoplasm of colon Medical Ce nter (procedure) [code = 566084456] Future Scheduled 1961 Sigmoidoscopy [code = [facility] Test 00:00:00 Sigmoidoscopy] Medical Cente r Future Scheduled 1961 CT Colonography (combo) [facility] Test 00:00:00 [code = CT Colonography [facility] (combo)] Future Scheduled 1961 Screening for malignant [facility] Test 00:00:00 neoplasm of colon Medical Ce nter (procedure) [code = 010207237] Encounters Start End Encounter Admission Attending Care Care Encounter Source Date/Time Date/Time Type Type Clinicians Facility Department ID 2022-01-07 Outpatient [facility] [id number] [place] 13:20:06 [id number] [facility] 2021-08-14 [facility] [id number] Univers 07:13:28 JASPER porras [facility] 2022-08-28 2022-08-28 Orders Doctor ESTEVEZ [id number] Univers 00:00:00 00:00:00 Only Unassigned, JEANNE [id number] ity of [facility] [id number] Jb as [id number] [address] 2022-08-01 2022-08-01 Outpatient [facility] [id number] Univers 10:30:00 10:36:59 JASPER porras [facility] 2022-08-01 2022-08-01 Office [facility] [id number] Univers 10:30:00 10:36:59 Visit [place] [facility] [id number] ity of [facility] [id number] [place] [id number] [address] 2022-08-01 2022-08-01 Orders Doctor ESTEVEZ [id number] Univers 00:00:00 00:00:00 Only Unassigned, JEANNE [id number] ity of [facility] [id number] Jb as [phone] [address] 2022-07-24 2022-07-24 Orders Doctor HERB [id number] Univers 00:00:00 00:00:00 Only Unassigned, JEANNE [id number] ity of [facility] [id number] Jb as [id number] [address] 2022-07-11 2022-07-11 Ly Hayward [facility] [id number] 00:00:00 00:00:00 Michael Conway [facility] 2022-07-10 2022-07-10 Orders Doctor ESTEVEZ [id number] Univers 00:00:00 00:00:00 Only Unassigned, JEANNE [id number] ity of [place] [facility] [id number] Jb as [phone] [address] 2022-07-09 2022-07-09 [facility] [id number] 00:00:00 00:00:00 Michael Conway [facility] 2022-06-20 2022-06-20 [facility]patient [facility] [id number] Univers 09:45:00 14:43:18 JASPER porras [facility] 2022-06-20 2022-06-20 Office [facility] [place] [id number] Univers 09:45:00 14:43:18 Visit [place] [facility] [id number] ity [facility] [id number] [facility] s CENTER AT [phone] Il chacha ROSEN [address] [facility] 2022-06-20 2022-06-20 Outpatient [facility] [id number] Univers 09:45:00 09:45:00 JASPER porras [facility] 2022-05-23 2022-05-23 Outpatient [facility] [id number] Univers 10:22:12 23:59:00 INNA porras [facility] 2022-05-23 2022-05-23 [facility] [id number] Univers 10:20:00 23:59:00 Encounter Inna SPECIALTY [id number] ity of [facility] [id number] [place] [phone] Il chacha ROSEN [address] [facility] 2022-05-23 2022-05-23 Outpatient [facility] [id number] Univers 09:50:00 10:41:43 INNA ity of [facility] 2022-05-23 2022-05-23 [facility] [id number] Univers 09:50:00 10:41:43 Visit Inna SPECIALTY [id number] ity of [place] [facility] [place]2.7.2.[place] [phone] Il chacha ROSEN [address] [facility] 2022-05-17 2022-05-17 Orders Doctor HERB [id number] [id number] Univers 00:00:00 00:00:00 Only Unassigned, JEANNE [id number] ity of [place] [facility] 4.2.7.2.686 Jb as [phone] [address] 2022-05-16 2022-05-16 Office [facility] [id number] Univers 09:30:00 10:50:50 Visit [place] [facility] [id number] ity of [facility] 4.2.7.2.686 [facility] [phone] Il chacha ROSEN [address] [place] [address] 2022-05-16 2022-05-16 [facility] [id number] Univers 09:30:00 10:50:50 JASPER ity of [facility] 2022-05-16 2022-05-16 [facility] [id number] Univers 09:30:00 09:30:00 JASPER ity of [facility] 2022-05-12 2022-05-12 Telephone [facility] [id number] Univers 00:00:00 00:00:00 [place] [facility] [id number] ity of [facility] 4.2.7.2.686 [facility] AT [phone] Il chacha ROSEN [address] [facility] 2022-05-02 2022-05-02 Telephone [facility] [id number] Univers 00:00:00 00:00:00 [place] [facility] [id number] ity [place] [facility] [place].2.[place] [id number] Il dicgeoff LANGY [address] [facility] 2022-05-02 2022-05-02 Telephone [facility] [id number] Univers 00:00:00 00:00:00 [place] [facility] [id number] ity of [place] [facility] [place]7.2.[place] [phone] Il dicgeoff LANGY [address] [facility] 2022-04-27 2022-04-27 Telephone [facility] 1.2.840.114 [id number] Univers 00:00:00 00:00:00 [place] [facility] [id number] ity of [facility] 4.2.7.2.686 [facility] AT [phone] Il dicgeoff LANGY [address] [facility] 2022-04-26 2022-04-26 Outpatient R [facility] [id number] Univers 05:29:00 12:39:00 JASPER ity of [facility] 2022-04-26 2022-04-26 [facility] [id number] Univers 05:29:00 12:39:00 [facility] [id number] ity of [place] 4.2.7.2.686 [facility] [id number] [address] ([facility] [place]) 2022-04-26 2022-04-26 Surgery [facility] 1.2.089.229 [id number] Univers 07:05:00 09:00:00 [place] SPECIALTY 350.1.13.10 ity of [place] AT [phone] Il dicgeoff ROSEN 020 [facility] 2022-04-26 2022-04-26 Orders Doctor ESTEVEZ 1.2.840.114 [id number] Univers 00:00:00 00:00:00 Only Unassigned, JEANNE 350.1.13.10 ity of [place] [facility] 4.2.7.2.686 Jb as [id number] [place] [address] [place] 2022-04-24 2022-04-24 Laboratory Only, Adc Test [facility] 1.2.840. 114 [id number] Univers 12:00:00 12:15:00 Only Jasper Kennedy 350.1 .13.10 ity [facility] 4.2.7.2.686 [facility] [id number] [facility] 353 [address] 2022-04-24 2022-04-24 Outpatient R MARCIA [facility] [id number] [facility] 12:00:00 12:00:00 JASPER porras [facility] 2022-04-18 2022-04-18 Office [facility] [id number] 10:00:00 11:23:21 Visit [facility] 2022-04-18 2022-04-18 Outpatient MARIUSZ HAYWARD [facility] [id number] 09:33:56 11:23:21 [facility] 2022-04-18 2022-04-18 Travel [facility] [id number] [facility] 00:00:00 00:00:00 [facility] 2022-04-14 2022-04-14 Refill [facility] [id number] 00:00:00 00:00:00 [facility] 2022-02-23 2022-02-23 Telephone Marcia [facility] 1.2.840.114 [id number] Univers 00:00:00 00:00:00 [place] SPECIALTY 350.1.13.10 ity of [place] 4.2.7.2.686 [facility] AT [phone] Il chacha ROSEN 198 [facility] 2022-02-14 2022-02-14 [facility] 1.2.489.976 [id number] Univers 10:15:00 10:56:17 Visit [place] SPECIALTY 350.1.13.10 ity of [place] 4.2.7.2.686 [facility] AT [phone] Il chacha ROSEN [address] [place] [address] 2022-02-14 2022-02-14 [facility] [id number] Univers 10:15:00 10:56:17 JASPER porras [facility] 2022-02-14 2022-02-14 Outpatient [facility] [id number] Univers 10:15:00 10:15:00 JASPER porras [facility] 2022-02-14 2022-02-14 Outpatient [facility] [id number] Univers 10:15:00 10:15:00 JASPER porras [facility] 2022-01-31 2022-01-31 Refill Roberto, [facility] [id number] 00:00:00 00:00:00 [facility] 2022-01-16 2022-01-16 Audio - Roberto [facility] [id number] 14:45:00 15:05:23 Telemedici [facility] 2022-01-16 2022-01-16 Outpatient MARIUSZ HAYWARD, [facility] [id number] 14:40:21 15:05:23 [facility] 2022-01-09 2022-01-09 Office Roberto [facility] [id number] 10:30:00 11:25:41 Visit [facility] 2022-01-09 2022-01-09 Outpatient ROBERTO [facility] [id number] 10:15:35 11:25:41 [facility] 2022-01-09 2022-01-09 Travel [facility] [id number] [facility] 00:00:00 00:00:00 [facility] 2022-01-03 2022-01-03 [facility] 1.2.840.114 [id number] Univers 10:05:00 23:59:00 Encounter [place] SPECIALTY 350.1.13.10 [facility] 4.2.7.2.686 [facility] AT [phone] Il chacha ROSEN 809 [facility] 2022-01-03 2022-01-03 Outpatient R [facility] [id number] Univers 10:00:00 10:54:58 JASPER valerie [facility] 2022-01-03 2022-01-03 Office [facility] 1.2.462.733 [id number] Univers 10:00:00 10:54:58 Visit J[place] SPECIALTY 350.1.13.10 [facility] 4.2.7.2.686 [facility] s [place] AT [phone] Il chacha ROSEN 198 [facility] 2022-01-03 2022-01-03 Outpatient [facility] [id number] Univers 10:00:00 10:54:58 JASPER [facility] 2022-01-03 2022-01-03 Telephone [facility] 1.2.840.114 [id number] Univers 00:00:00 00:00:00 [place] SPECIALTY 350.1.13.10 [facility] 4.2.7.2.686 [facility] s [place] AT [phone] Il chacha ROSEN 198 [facility] 2022-01-03 2022-01-[address] GurdeepVenkata [id number] 00:00:00 00:00:00 Only [facility] 2022-01-03 2022-01-03 JOVANNA Dickinson [id number] 00:00:00 00:00:00 Only [facility] 2022-01-03 2022-01-03 Telephone Roberto [facility] [id number] 00:00:00 00:00:00 Michael [facility] 2022-01-02 2022-01-02 Orders Roberto [facility] [id number] 00:00:00 00:00:00 Only Michael [facility] 2022-01-02 2022-01-02 Telephone Roberto [facility] [id number] 00:00:00 00:00:00 [facility] 2021-12-26 2021-12-26 Refill Roberto [facility] [id number] 00:00:00 00:00:00 [facility] 2021-12-23 2021-12-23 Outpatient ROBERTO [facility] [id number] 00:00:00 00:00:00 [facility] 2021-11-21 2021-11-21 Telephone Ramaionsabra [facility] 1.2.840.114 [id number] Univers 00:00:00 00:00:00 [facility] 350.1.13.10 i ty of CLINICS 4.2.[place].2.[place] [phone] [place] [address] Branch 2021-11-08 2021-11-08 Telephone [facility] 1.2.840.114 [id number] Univers 00:00:00 00:00:00 [facility] 350.1.13.10 i ty of CLINICS 4.2.7.2.[place] [id number] [place] [address] Branch 2021-10-24 2021-10-24 Outpatient ROBERTO [facility] [id number] 16:51:14 19:17:13 [facility] 2021-10-24 2021-10-24 Video - Roberto [facility] [id number] 13:30:00 19:17:13 Telemedici [facility] 2021-10-24 2021-10-24 Travel [facility] [id number] [facility] 00:00:00 00:00:00 [facility] 2021-09-19 2021-09-19 Office Zion Garcia [facility] 1.2.840. 114 [id number] [facility] 13:37:14 13:50:31 Visit Ange Grimaldo [facility] 350.1.13.10 ity of IALTY 4.2.7.2.686 [facility] [phone] [facility] AND [place] [address] [facility]ABETES CL[facility]IC 2021-09-19 2021-09-19 Outpatient R DILLAN, [facility] [id number] Univers 13:30:00 13:50:31 ANGE chiquita burns f [facility] 2021-09-14 2021-09-14 Telephone RamaionsabraAMADOR 1.2.840.114 [id number] Univers 00:00:00 00:00:00 Zion ARRIAGA 350.1.13.10 i ty of [facility] 4.2.7.2.686 [facility] [id number] [facility] 027 [address] 2021-08-19 2021-08-19 Outpatient [facility] [id number] 09:53:27 10:35:54 [facility] 2021-07-21 2021-07-21 Hospital Radiology [facility] 1.2.840.114 [id number] Univers 14:11:15 23:59:00 Encounter Live 350.1.13.10 ity of [place] 4.2.7.2.686 [facility] [id number] [facility] [address] 2021-07-21 2021-07-21 Outpatient R RADIOLOGY [facility] [id number] Univers 00:00:00 00:00:00 ity of [facility] 2021-07-21 2021-07-21 Orders Doctor ESTEVEZ 1.2.840.114 [id number] Univers 00:00:00 00:00:00 Only Unassigned, JEANNE 350.1.13.10 ity of [place] [facility] 4.2.7.2.686 [facility] [id number] [facility] 009 [address] 2021-07-01 2021-07-01 Outpatient ROBERTO, [facility] [id number] 00:00:00 00:00:00 MICHAEL [facility] 2021-06-17 2021-06-17 Telephone Jose [facility] 1.2.840.114 [id number] Univers 00:00:00 00:00:00 Zion BAI 350.1.13.10 ity of [place] 4.2.7.2.686 [facility] [id number] [address] DIABETES CLINIC 2021-06-15 2021-06-15 Office RadhaZion montaño [facility] 1.2.840. 114 [id number] Univers 13:43:13 14:06:28 Visit Ange Grimaldo 350.1.13.10 ity of [place].2.[place] [id number] [address] DIABETES CLINIC 2021-06-15 2021-06-15 Office RadhaZion montaño [facility] 1.2.840. 114 [id number] Univers 13:43:13 14:06:28 Visit Ange Grimaldo 350.1.13.10 ity of [place] 4.2.7.2.686 [facility] [place] [phone] [address] [facility]ES CLINIC 2021-06-15 2021-06-15 Outpatient R DILLAN [facility] [id number] Univers 13:45:00 13:45:00 ANGE porras o f [facility] 2021-06-15 2021-06-15 Telephone Jose [facility] 1.2.840.114 [id number] Univers 00:00:00 00:00:00 [facility] 350.1.13.10 i ty of CL[place].2.[place] [id number] [address] 2021-06-15 2021-06-15 Telephone JOSE Garcia 1.2.840.114 [id number] Univers 00:00:00 00:00:00 [facility] 350.1.13.10 i ty of CL[place]ICS [place] [id number] [address] 2021-06-15 2021-06-15 Patient Jose [facility] 1.2.711.329 [id number] Univers 00:00:00 00:00:00 Secure Msg [facility] 350.1.13.10 ity of [place] [id number] [address] DIABETES CLINIC 2021-04-26 2021-04-26 Orders Doctor HERB 1.2.840.114 [id number] Univers 00:00:00 00:00:00 Only Unassigned, JEANNE 350.1.13.10 ity of [place] [facility] 4.2.7.2.686 Jb as [id number] [address] 2021-04-04 2021-04-04 [facility] 1.2.840.114 [id number] Univers 14:09:32 23:59:00 Encounter [place] SPECIALTY 350.1.13.10 ity of [place].2.[place].2.686 [place] AT [id number] Il janaegeoff ROSEN 809 [facility] 2021-04-04 2021-04-04 Office [facility] 1.2.391.235 [id number] Univers 13:56:32 14:21:04 Visit [place] SPECIALTY 350.1.13.10 ity of [place].2.[place].2.[place] AT [phone] Il janaegeoff LANGValerie 198 [facility] 2021-04-04 2021-04-04 Outpatient R [facility] [id number] Univers 14:00:00 14:00:00 JASPER porras [facility] 2021-03-22 2021-03-22 Orders Doctor HERB 1.2.840.114 [id number] Univers 00:00:00 00:00:00 Only Unassigned, JEANNE 350.1.13.10 ity of [place] [facility] 4.2.7.2.686 Jb as [id number] [address] 2021-02-22 2021-02-22 Office [facility] 1.2.859.066 [id number] Univers 13:19:23 13:45:46 Visit [place] SPECIALTY 350.1.13.10 ity of [place].2.[place].2.[place] AT [phone] Il janaegeoff LANGValerie 198 [facility] 2021-02-22 2021-02-22 Outpatient R [facility] [id number] Univers 13:30:00 13:30:00 JASPER porras [facility] 2021-02-22 2021-02-22 Orders Doctor HERB 1.2.840.114 [id number] Univers 00:00:00 00:00:00 Only Unassigned, JEANNE 350.1.13.10 ity of [place] [facility] 4.2.7.2.686 Jb as [id number] [address] 2021-02-01 2021-02-01 Orders Doctor HERB 1.2.840.114 [id number] Univers 00:00:00 00:00:00 Only Unassigned, JEANNE 350.1.13.10 ity of [place] [facility] 4.2.7.2.686 Jb as [id number] [address] 2021-01-25 2021-01-25 Out[facility] [id number] Univers 11:00:00 11:00:00 ALVA porras [facility] 2021-01-25 2021-01-25 Office [facility] 1.2.874.401 [id number] Univers 10:38:06 10:58:06 Visit Alva Jaquez SPECIALTY 350.1.13.10 ity of CARE 4.2.7.2.686 [place] AT [id number] [facility] 198 [facility] 2021-01-12 2021-01-12 Hospital [facility] 1.2.840.114 [id number] Univers 10:01:00 14:45:00 Encounter Jasper [facility] 350.1.13.10 ity of [place]2.[place].2.686 [place] [facility] [phone] [address] ([facility]) 2021-01-12 2021-01-12 Surgery [facility] 1.2.755.078 [id number] Univers 12:14:00 14:34:00 [place] SPECIALTY 350.1.13.10 ity of [place].2.[place].2.[place] AT [phone] [facility] 020 [facility] 2021-01-12 2021-01-12 Anesthesia Alva Lam [facility] 1.2.840.114 [id number] Univers 12:10:00 13:28:00 Event Francesco, Alin SPECIALTY 350.1.13.10 ity of CARE 4.2.7.2.686 [place] AT [id number] Il chacha ROSEN 020 [facility] 2021-01-12 2021-01-12 Orders Doctor HERB 1.2.840.114 [id number] Univers 00:00:00 00:00:00 Only Unassigned, JEANNE 350.1.13.10 ity of [place] [facility] 4.2.7.2.686 Jb as [id number] [facility] [address] [place] 2021-01-10 2021-01-10 Laboratory Only, Adc Test [facility] 1.2.840. 114 [id number] Univers 09:15:19 09:30:19 Only Tyler King 350.1.13.10 ity of [place] 4.2.7.2.686 [place] [id number] [facility] [address] [place] 2021-01-10 2021-01-10 Outpatient R [facility] [id number] Univers 09:15:00 09:15:00 itvalerie of [facility] 2021-01-03 2021-01-03 Orders Doctor HERB 1.2.840.114 [id number] Univers 00:00:00 00:00:00 Only Unassigned, JEANNE 350.1.13.10 ity of [place] [facility] 4.2.7.2.686 Jb as [id number] [facility] 00[address] [place] 2020-12-25 2020-12-25 Patient Ta [facility] 1.2.840.114 [id number] Univers 00:00:00 00:00:00 Outreach [place] [facility] 350.1.13.10 i ty of [facility]intan [facility] 4.2.7.2.686 [place] [facility] [phone] Il dicgeoff [address] [place] 2020-12-21 2020-12-21 Outpatient R MARCIA [facility] [id number] Univers 16:00:00 16:00:00 JASPER porras of [facility] 2020-12-21 2020-12-21 Office Marcia [facility] 1.2.101.196 [id number] Univers 15:33:18 15:48:18 Visit Jasper SPECIALTY 350.1.13.10 ity of [facility] 4.2.7.2.686 [place] AT [phone] Il chacha ROSEN 198 [facility] 2020-12-21 2020-12-21 [facility] [id number] 00:00:00 00:00:00 [facility] 2020-12-21 2020-12-21 Orders Doctor HERB 1.2.840.114 [id number] Univers 00:00:00 00:00:00 Only Unassigned, JEANNE 350.1.13.10 ity of [facility] 4.2.7.2.686 Jb as [id number] [facility] [address] 2020-12-20 2020-12-20 Outpatient [facility] [id number] 00:00:00 00:00:00 [facility] 2020-12-14 2020-12-14 Rn Resource Nurse [facility] 1.2.840.114 [id number] Univers 16:36:40 16:40:40 Visit Verito Irizarry 350.1.13.10 ity of CLINICS 4.2.7.2.[place] [phone] [facility] [address] 2020-12-14 2020-12-14 Office AMADOR Irizarry 1.2.007.475 [id number] Univers 14:41:31 16:35:08 Visit Beilin HEALTH 350.1.13.10 i ty of CLINICS 4.2.7.2.[place] [id number] [facility] [address] 2020-12-14 2020-12-14 Outpatient Nydia IRIZARRY [facility] [id number] Univers 15:00:00 15:00:00 BEILIN ity [facility] 2020-12-13 2020-12-13 Outpatient [facility] [id number] 00:00:00 00:00:00 [facility] 2020-12-13 2020-12-13 Outpatient ROBERTO [facility] [id number] 00:00:00 00:00:00 [facility] 2020-12-07 2020-12-07 Office [facility] 1.2.186.770 [id number] Univers 15:09:45 15:45:47 Visit [place] SPECIALTY 350.1.13.10 ity of [facility] CARE 4.2.7.2.686 [place] CENTER AT [phone] Il chacha ROSEN 198 [facility] 2020-12-07 2020-12-07 Outpatient R [facility] [id number] Univers 15:15:00 15:15:[facility] 2020-11-30 2020-11-30 Outpatient [facility] [id number] Univers 15:30:00 15:30:00 [facility] 2020-11-29 2020-11-29 Outpatient [facility] [id number] Univers 15:00:00 [facility]:00[facility] 2020-11-24 2020-11-24 [facility] 1.2.840.114 [id number] Univers 14:56:44 23:59:00 Encounter [place] SPECIALTY 350.1.13.10 ity of [facility] CARE 4.2.7.2.[place] C[place] AT [id number] Il chacha ROSEN 809 [facility] 2020-11-24 2020-11-24 Office [facility] 1.2.408.592 [id number] Univers 14:46:07 15:18:25 Visit Alva J SPECIALTY 350.1.13.10 ity of CARE 4.2.7.2.686 [place] CENTER AT [phone] Il chacha ROSEN 198 [facility] 2020-11-24 2020-11-24 Outpatient R [facility] [id number] Univers 11:00:00 11:00:00 ALVA ity [facility] 2020-09-21 2020-09-21 Outpatient ROBERTO [facility] [id number] 00:00:00 00:00:00 MICHAEL [facility] 2020-09-17 2020-09-17 Outpatient R ANYA [facility] [id number] Univers 14:00:00 14:00:00 RISHABH porras [facility] 2020-09-14 2020-09-14 Outpatient [facility] [id number] [facility] 00:00:00 00:00:00 [facility] 2020-08-09 2020-08-11 Office [facility] 1.2.553.449 [id number] Univers 10:34:29 14:42:06 Visit Jasper WATSON 350.1.13.10 ity [facility] 4.2.7.2.686 [facility] [phone] [address] 2020-08-09 2020-08-09 Outpatient R MARCIA [facility] [id number] Univers 11:00:00 11:00:00 JASPER porras [facility] 2020-08-09 2020-08-09 [facility] [id number] Univers 09:45:00 09:45:00 [facility] 2020-08-09 2020-08-09 Orders Doctor ESTEVEZ 1.2.840.114 [id number] Univers 00:00:00 00:00:00 Only Unassigned, JEANNE 350.1.13.10 ity of [place] [facility] 4.2.7.2.686 Jb as [phone] [facility] [address] [place] 2020-08-05 2020-08-05 Abstract HERB Lopez 1.2.840.114 [id number] Univers 00:00:00 00:00:00 Christie PATY 350.1.13.10 ity of [facility] 4.2.7.2.686 Jb as [id number] [facility] 015 [place] 2020-08-02 2020-08-02 Out[facility] [id number] Univers 08:45:00 08:45:00 ALVA porras [facility] 2020-07-02 2020-07-21 Office [facility] 1.2.840.114 [id number] Univers 15:05:44 21:51:05 Visit Rishabh BHUMIKA 350.1.13.10 ity of [place].2.686 [place] CENTER [id number] [facility] 0[address] [place] DIAB[facility]ES CLINIC 2020-07-13 2020-07-13 Telephone [facility] 1.2.148.831 [id number] Univers 00:00:00 00:00:00 Rishabh Stratton CASIPEC 350.1.13.10 ity of [place]2.[place].2.686 [place] C[place] [id number] [address] DIABETES CLINIC 2020 2020 Telephone [facility] 1.2.817.451 [id number] Univers 00:00:00 00:00:00 Rishabh Stratton MULTISPEC 350.1.13.10 ity of IALTY 4.2.7.2.686 [facility] [id number] [address] DIABETES [facility] 2020-07-02 2020-07-02 Outpatient [facility] [id number] Univers 15:00:00 15:00:00 RISHABH porras [facility] 2020-07-02 2020-07-02 Orders Doctor ESTEVEZ 1.2.840.114 [id number] Univers 00:00:00 00:00:00 Only Unassigned, JEANNE 350.1.13.10 ity of [place] [facility] 4.2.7.2.686 Jb as [id number] [address] 2020-06-23 2020-06-23 Office [facility] 1.2.669.766 [id number] Univers 14:45:51 15:59:53 Visit Alva WATSON 350.1.13.10 ity of CARE 4.2.7.2.686 [place] CENTER AT [id number] Il janaend RICKEY[address] 2020-06-23 2020-06-23 Outpatient R [facility] [id number] Univers 15:00:00 15:00:00 ALVA porras [facility] 2020-06-23 2020-06-23 Orders Doctor ESTEVEZ 1.2.840.114 [id number] Univers 00:00:00 00:00:00 Only Unassigned, JEANNE 350.1.13.10 ity of [place] [facility] 4.2.7.2.686 Jb as [id number] [address] 2020-05-21 2020-05-21 Orders Doctor HERB 1.2.840.114 [id number] Univers 00:00:00 00:00:00 Only Unassigned, JEANNE 350.1.13.10 ity of [place] [facility] 4.2.7.2.686 Jb as [id number] [address] 2020-03-24 2020-03-24 Outpatient ROBERTO, [facility] [id number] 00:00:00 00:00:00 [facility] 2020-03-17 2020-03-17 Outpatient [facility] [id number] 00:00:00 00:00:00 [facility] 2019-12-23 2019-12-23 Outpatient [facility] [id number] 4-[address] 00:00:00 00:00:00 [id number] [facility] 2019-12-16 2019-12-16 Outpatient [facility] [id number] 4-[address] 00:00:00 00:00:00 [id number] [facility] 2017-12-28 2017-12-28 Outpatient Venkata NARVAEZ [facility] RAD [id number] [address] [place] 10:21:00 23:59:00 [facility] Results Test Description Test Time Test Comments Results Result Comments Source Comprehensive metabolic panel 2022-04-19 12:10:00 Test Item Value Reference Range Interpretation Comme nts Glucose, Serum (test code 121 mg/dL 65-99 H = 20110214) BUN (test code = 6979089) 17 mg/dL 8-27 Creatinine, Serum (test 0.55 mg/dL 0.57-1.00 L code = 4378955) EGFR (test code = 105 mL/min/1.73 >59 [id number]) BUN/Creatinine Ratio (test 31 12-28 H code = 6285986) Sodium, Serum (test code = 141 mmol/L 134-231 0677175) Potassium, Serum (test 4.8 mmol/L 3.5-5.2 code = 20110302) Chloride, Serum (test code 100 mmol/L 96-106 = 20110304) Carbon Dioxide, Total 28 mmol/L 20-29 (test code = 0510980) Calcium, Serum (test code 9.2 mg/dL 8.7-10.3 = 20110212) Protein, Total, Serum 6.4 g/dL 6.0-8.5 (test code = 20110219) Albumin, Serum (test code 4.2 g/dL 3.8-4.9 = 20110220) Globulin, Total (test code 2.2 g/dL 1.5-4.5 = ) A/G Ratio (test code = 1.9 1.2-2.2 ) Bilirubin, Total (test 0.3 mg/dL 0.0-1.2 code = 20110221) Alkaline Phosphatase, S 76 See_Comment [Au tomated message] (test code = 6768-6) The sys tem which generated this result transmitted ref erence range: 44 - 121 IU/L. The reference r pawan was not used to int erpret this result as normal/abnormal . AST (SGOT) (test code = 27 See_Comment [Au tomated message] 20110225) The system [employer] generated this result transmitted ref erence range: 0 - 40 I U/L. The reference range was not used to interpr et this result as normal/abnormal . ALT (SGPT) (test code = 28 See_Comment [Au tomated message] ) The system [employer] generated this result transmitted ref erence range: 0 - 32 I U/L. The reference range was not used to interpr et this result as normal/abnormal . JACKIE (test code = JACKIE) Performed at: 01 - [facility] [id number] Director: Maynor Mata MD, Phone: [phone] Lab Interpretation (test Abnormal code = 70065-5) [id number] 12:10:00 Test Item Value Reference Range Interpretation Comments Cholesterol, Total (test 154 mg/dL 100-199 code = 2093-3) Triglycerides (test code 127 mg/dL 0-149 = 2571-8) HDL Cholesterol (test 74 mg/dL >39 code = 2085-9) VLDL Cholesterol Florentin 22 mg/dL 5-40 (test code = 15441-0) LDL Calculated (test 58 mg/dL 0-99 code = 28558-7) JACKIE (test code = JACKIE) Performed at: [facility] [address] [id number] Director: Maynor Mata MD, Phone: [phone] [facility] [id number] 12:10:00 Test Item Value Reference Range Interpretation Comments Hemoglobin A1c (test 5.7 % 4.8-5.6 H Predia betes: code = 4548-4) 5.7 - 6.4 Diabetes: >6.4 Glycemic control for adults with diabetes: <7.0 JACKIE (test code = JACKIE) Performed at: [facility] [address] [id number] Director: Maynor Mata MD, Phone: [phone] Lab Interpretation Abnormal (test code = 49759-0) [facility] 12:10:00 Test Item Value Reference Range Interpretation Comments TSH (test code 1.230 See_Comment [Automated m essage] = ) The system Hydrocision h generated this result transmit brunilda reference range : 0.450 - 4.50 uI U/mL. The reference r pawan was not used to interpret this result as normal/abnormal . JACKIE (test code Performed at: - = JACKIE) [facility] [address] [id number] Director: Maynor Mata MD, Phone: [phone] [facility] with platelet count + automated [id number] 12:10:00 Test Item Value Reference Range Interpretation Comments WBC (test code = 8.0 See_Comment [Automated ) message] The system which generated this result transmitted reference range : 3.4 - 10.8 x10E3/uL. The reference range was not used to interpret this result as normal/abnormal . RBC (test code = 4.15 See_Comment [Automated 474-2) message] The system which generated this result transmitted reference range : 3.77 - 5.28 x10E6/uL. The reference range was not used to interpret this result as normal/abnormal . Hemoglobin (test code 12.8 g/dL 11.1-15.9 = ) Hematocrit (test code 41.1 % 34.0-46.6 = ) MCV (test code = 99 fL 79-97 H ) MCH (test code = 30.8 pg 26.6-33.0 ) MCHC (test code = 31.1 g/dL 31.5-35.7 L ) RDW (test code = 12.2 % 11.7-15.4 ) Platelets (test code 214 See_Comment [Autom ated = ) message] The system which generated this result transmitted reference range : 150 - 450 x10E3/uL. The reference range was not used to interpret this result as normal/abnormal . % Neutros (test code 66 % Not Estab. = ) % Lymphs (test code = 23 % Not Estab. ) % Monos (test code = 8 % Not Estab. ) % Eos (test code = 2 % Not Estab. ) % Baso (test code = 1 % Not Estab. ) # Neutros (test code 5.3 See_Comment [Autom ated = ) message] The system which generated this result transmitted reference range : 1.4 - 7.0 x10E3/uL. The reference range was not used to interpret this result as normal/abnormal . # Lymphs (test code = 1.8 See_Comment [Auto mated ) message] The system which generated this result transmitted reference range : 0.7 - 3.1 x10E3/uL. The reference range was not used to interpret this result as normal/abnormal . # Monos (test code = 0.6 See_Comment [Autom ated ) message] The system which generated this result transmitted reference range : 0.1 - 0.9 x10E3/uL. The reference range was not used to interpret this result as normal/abnormal . # Eos (test code = 0.2 See_Comment [Automat ed ) message] The system which generated this result transmitted reference range : 0.0 - 0.4 x10E3/uL. The reference range was not used to interpret this result as normal/abnormal . Baso (Absolute) (test 0.0 See_Comment [Auto mated code = ) message] The system which generated this result transmitted reference range : 0.0 - 0.2 x10E3/uL. The reference range was not used to interpret this result as normal/abnormal . % Immature Grans 0 % Not Estab. (test code = ) # Immature Grans 0.0 See_Comment [Automated (test code = ) messag e] The system which generated this result transmitted reference range : 0.0 - 0.1 x10E3/uL. The reference range was not used to interpret this result as normal/abnormal . JACKIE (test code = JACKIE) Performed at: 01 - [address] [id number] Director: Maynor Mata MD, Phone: [phone] Lab Interpretation Abnormal (test code = 01130-7) [facility] ValleyVitamin D, 34-[id number] 12:10:00 Test Item Value Reference Range Interpretation Comments Vitamin D, 76.5 ng/mL 30.0-100.0 Vitamin D defic iency 25-Hydroxy has been define d by (test code = the [place] 20120226) ofMedicine and an Endocrine Socie ty practice guidel ine as alevel of serum 25-OH vitamin D less than 20 ng/mL (1,2). The Endocrine Socie ty went on to furt her define vitamin Dinsufficiency as a level between 2 1 and 29 ng/mL (2).1. IOM ([place] of Medicine). 2010 . Dietary referen ce intakes for florentin cium and D. [place]: The National Academies Press .2. Adan MF, Juarez martin NC, Arturo mauro ART, et al. Evaluation, treatment, and prevention of v itamin D deficiency: a n Endocrine Socie ty clinical practi ce guideline. JCEM . 2010; 96(7):1911 -30. JACKIE (test code Performed at: 01 - = JACKIE) [facility] [address] [id number] Director: Maynor Mata MD, Phone: [phone] [facility] [id number] 12:57:00Reason for Exam:->screening for osteoprosisFINAL REPORT Bone Mineral Density, 05/02/2019 7:58 AM Clinical History: Screening for osteoporosis. Comparison: None. Findings: Bone Mineral Density Measurement (BMD) -Lumbar Spine:1.088 gm/nn0Vvhc Femoral Neck: 0.881 gm/cm2 Standard Deviation as compared to the young adult population (T -score)-Lumbar Spine: -0.8 Mean Femoral Neck: - 1.1 Standard Deviation as compared to the age matched controls (Z-score)-Lumbar Spine: -0.3Mean Femoral Neck: -0.4 IMPRESSION:These findings are consistent with normal bone mineral density of the lumbar spine. These findings are consistent with osteopenia of the femoral necks. Signed: Kamala Pickard MDReport Verified Date/Time: 05/06/2019 12:57:21 Reading Location: [facility] Radiology Reading Room Electronically signed by: KAMALA PICKARD MD on05/06/2019 12:57 PMMM, DIGITAL, MAMMO, SCREENING, WITH ANITA, BILATERAL INCLUDING [id number] 11:16:00 Diagnostic workup per radiologist?->Yes Reason for Exam:->Screening for breast cancerMRN#: [id number] - MM, DIGITAL, MAMMO, SCREENING, WITH ANITA, BILATERAL INCLUDING CADBILATERALDIGITAL SCREENING MAMMOGRAM 3D/2D WITH CAD: 05/02/2019No prior exams were available for comparison. There are scattered fibroglandular elements in both breasts that could obscure a lesion on mammography. Tomosynthesis 3D imaging of the breast was also performed. Current study was also evaluated with a Computer Aided Detection (CAD) system. No significant masses, calcifications, or other findings are seen in either breast. IMPRESSION: NEGATIVEThere is no mammographic evidence of malignancy. A 1 year sc reening mammogram is recommended. Kamala Pickard M.D. as/penrad:05/06/2019 11:16:13 Normal BiRad 1-2 Mammogram BI-RADS: 1 Negative G0202 U/SPELVIS WITH ENDOVAG [id number] 10:09:00Reason for Exam:->screening for cervical cancerFINAL REPORT Technique: Transabdominal and transvaginal pelvic ultrasound date05/02/2019 Clinical History: Screening for cervical cancer COMPARISON: None Findings: The uterus measures 6.6 x 2.5 x 3.5 cm. Endometrium measures 0.4 cm in thickness. Both endometrium and myometrium are unremarkable. Right ovary measures 1.6 x 0.7 x 1.7 cm. Left ovary measures 2.4 x 1.3 x 2.5 cm. Normal doppler flow is seen in both ovaries. No mass lesion is seen in the adnexa. No free fluid is seen in the cul-de-sac. Impression: Normal pelvic ultrasound. Signed: Mariela Ashley VerifiedDate/Time: 05/02/2019 10:09:21 Reading Location: [facility] Reading Room U/S [id number] 12:18:06 EXAMINATION: NONTUNNELED CENTRAL VENOUS CATHETER PLACEMENT USING ULTRASOUND ANDFLUOROSCOPIC GUIDANCE.LOCATION: D4.HISTORY: Cellulitis of abdominal wall status post surgery, request is made foroutpatient PICC by ID for long-term IV antibiotics.COMPARISON: None.SEDATION: The patient did not require conscious sedation for the procedure.RADIATION DOSE: 0.40012 mGy.TECHNIQUE: The risks, benefits and alternatives were discussed and informedconsent was obtained. Prior to beginning the procedure, Clyde Protocol wasused to confirm the patient's identity and planned procedure. Maximum sterilebarriers including cap, mask, hand hygiene, sterile gloves, sterile gown, largesterile drape and cutaneous antisepsis were used. SITE: The skin over the right basilic vein was sterilely prepped, draped andinfiltrated with 1% lidocaine. Prior to the procedure, the target vessel was evaluated by ultrasound. Animage of the patent vessel was recorded and saved in PACS. After sterile prep,this vessel was accessed using realtime ultrasound guidance.A guidewire and catheter were then passed centrally using fluoroscopicguidance. The intravascular length from the access site to the right atrium wasassessed. After dilating the tract, a 41 cm single lumen PICC was inserted over theguidewire. The catheter was flushed withsaline and secured in place. A sterile dressingwas applied. ESTIMATED BLOOD LOSS: less than 30 milliliters. DISCHARGED TO: Recovery and then to home.CONDITION: Stable.FINDINGS: The final fluoroscopic image demonstrates the catheter with its tipin the right atrium. No complications are seen. IMPRESSION: Successful nontunneled PICC placement via the right basilic vein.PLAN:The catheter is ready for immediate use. When treatment is completed, thiscatheter can be removed at the bedside according to standard protocol.XR PICC LINE INSERTION [id number] 12:18:06EXAMINATION: NONTUNNELED CENTRAL VENOUS CATHETER PLACEMENT USING ULTRASOUND ANDFLUOROSCOPIC GUIDANCE.LOCATION: D4.HISTORY: Cellulitis of abdominal wall status post surgery, request is made foroutpatient PICC by ID for long-term IV antibiotics.COMPARISON: None.SEDATION: The patient did not require conscious sedation for the procedure.RADIATION DOSE: 0.57223 mGy.TECHNIQUE: The risks, benefits and alternatives were discussed and informedconsent was obtained. Prior to beginning the procedure, Clyde Protocol wasused to confirm the patient's identity and planned procedure. Maximum sterilebarriers including cap, mask, hand hygiene, sterile gloves, sterile gown, largesterile drape and cutaneous antisepsis were used. SITE: The skin over the right basilic vein was sterilely prepped, draped andinfiltrated with 1% lidocaine. Prior to the procedure, the target vessel was evaluated by ultrasound. Animage of the patent vessel was recorded and saved in PACS. After sterile prep,this vessel was accessed using realtime ultrasound guidance.A guidewire and catheter were then passed centrally using fluoroscopicguidance. The intravascular length from the access site to the right atrium wasassessed. After dilating the tract, a 41 cm single lumen PICC was inserted over theguidewire. The catheter was flushed with saline and secured in place. A sterile dressingwas applied. ESTIMATED BLOOD LOSS: less than 30 milliliters. DISCHARGED TO: Recovery and then to home.CONDITION: Stable.FINDINGS: The final fluoroscopic image demonstrates the catheter with its tipin the right atrium. No complications are seen. IMPRESSION: Successful nontunneled PICC placement via the right basilic vein.PLAN:The catheter is ready for immediate use. When treatment is completed, thiscatheter can be removed at the bedside according to standard protocol.U/S GUIDANCE*WW* 2017-05-07 09:46:20EXAMINATION: NONTUNNELED CENTRAL VENOUS CATHETER PLACEMENT USING ULTRASOUND ANDFLUOROSCOPIC GUIDANCE.HISTORY: Abdominal wall infection, request is made for PICC line for long-termIV antibiotics.LOCATION: D4.SEDATION: The patient did not require conscious sedation for the procedure.FLUOROSCOPIC TIME: 0.32 seconds. One image submitted.TECHNIQUE: The risks, benefits and alternatives were discussed and informedconsent was obtained. Prior to beginning the procedure, Clyde Protocol wasused to confirm the patient's identity and planned procedure. Maximum sterilebarriers including cap, mask, hand hygiene, sterile gloves, sterile gown, largesterile drape and cutaneous antisepsis were used. SITE: The skin over the right basilic vein was sterilely prepped, draped andinfiltrated with 1% lidocaine. Prior to the procedure, the target vessel was evaluated by ultrasound. Animage of the patent vessel was recorded and saved in PACS. After sterile prep,this vessel was accessed using realtime ultrasound guidance.A guidewire and catheter were then passed centrally using fluoroscopicguidance. The intravascular length from the access site to the right atrium wasassessed. After dilating the tract, a 41 cm singlelumen PICC was inserted over theguidewire. The catheter was flushed with 100U/ml heparin and securedin place. A steriledressing was applied. ESTIMATED BLOOD LOSS: less than 30 milliliters. DISCHARGED TO: Recovery and then to inpatient unit.CONDITION: Stable.FINDINGS: The final fluoroscopic image demonstrates the catheter with its tipin the right atrium. No complications are seen. IMPRESSION: Successful nontunneled PICC placement via the right basilic vein.PLAN:The catheter is ready for immediate use. When treatment is completed, thiscatheter can be removed at the bedside according to standard hospital protocol.XR PICC LINE INSERTION PNL*WW*2017-05-07 09:46:20EXAMINATION: NONTUNNELED CENTRAL VENOUS CATHETER PLACEMENT USING ULTRASOUND ANDFLUOROSCOPIC GUIDANCE.HISTORY: Abdominal wall infection, request is made for PICC line for long-termIV antibiotics.LOCATION: D4.SEDATION: The patient did not require conscious sedation for the procedure.FLUOROSCOPIC TIME: 0.32 seconds. One image submitted.TECHNIQUE: The risks, benefits and alternatives were discussed and informedconsent was obtained. Prior to beginning the procedure, Clyde Protocol wasused to confirm the patient's identity and planned procedure. Maximum sterilebarriers including cap, mask, hand hygiene, sterile gloves, sterile gown, largesterile drape and cutaneous antisepsis were used. SITE: The skin over the right basilic vein was sterilely prepped, draped andinfiltrated with 1% lidocaine. Prior to the procedure, the target vessel was evaluated by ultrasound. Animage of the patent vessel was recorded and saved in PACS. After sterile prep,this vessel was accessed using realtime ultrasound guidance.A guidewire and catheter were then passed centrally using fluoroscopicguidance. The intravascular length from the access site to the right atrium wasassessed. After dilating the tract, a 41 cm singlelumen PICC was inserted over theguidewire. The catheter was flushed with 100U/ml heparin and securedin place. A steriledressing was applied. ESTIMATED BLOOD LOSS: less than 30 milliliters. DISCHARGED TO: Recovery and then to inpatient unit.CONDITION: Stable.FINDINGS: The final fluoroscopic image demon strates the catheter with its tipin the right atrium. No complications are seen. IMPRESSION: Successful nontunneled PICC placement via the right basilic vein.PLAN:The catheter is ready for immediate use. When treatment is completed, thiscatheter can be removed at the bedside according to standard hospital protocol.VANCOMYCIN TROUGH 2017-05-07 01:21:00 Test Item Value Reference Range Interpretation Comments VANC TROGH (test code = VANCT) 7.0 ug/dL 10.0-20.0 L PRO TIME AND PTT 2017-05-06 11:13:00 Test Item Value Reference Range Interpretation Comments PT (test code = 12.6 s 9.8-13.6 TT) INR (test code = 1.1 INR) INRH (test code = SUGGESTED THERAPEUTIC INRH) RANGE FOR INR: 2.5 - 3.5 For Patients with Prosthetic Valves or Patients with recurrent Thromboembolic Events 2.0 - 3.0 For Most Other Applications PTT (test code = 26.1 s 20.2-38.0 PTT) PTTH (test code = To monitor the PTTH) effectiveness of heparin, we offer the Anti-Xa (Heparin Assay). It can be used for either unfractionated or LMW Heparin. Order Code is ANTI-XA COMPREHENSIVE METABOLIC ANNE 2017-05-06 03:45:00 Test Item Value Reference Range Interpretation Comments GLUCOSE (test code = 06D) 96 mg/dL 75-100 SODIUM (test code = 01A) 141 mmol/L 136-145 POTASSIUM (test code = 01B) 3.6 mmol/L 3.6-5.1 CHLORIDE (test code = 04A) 101 mmol/L 98-107 CO2 (test code = 02A) 28 mmol/L 22-32 ANION GAP (test code = ANG) 15.6 mmol/L BUN (test code = 05D) 26 mg/dL 7-18 H CREATININE (test code = 03E) 0.8 mg/dL 0.4-1.1 BUN/CREA (test code = BCR) 34 12-20 H CALCIUM (test code = 09D) 8.9 mg/dL 8.3-9.5 BILI TOTAL (test code = 11A) 0.2 mg/dL 0.2-1.0 PROTEIN (test code = 07D) 7.0 g/dL 6.4-8.2 ALBUMIN (test code = 08D) 3.5 g/dL 3.5-4.8 GLOBULIN (test code = GLB) 3.5 g/dL 1.5-3.8 ALB/GLOB (test code = AGRR) 1.0 1.0-2.6 ALK PHOS (test code = 35A) 96 IU/L 42-121 AST (test code = 30A) 19 IU/L <=42 ALT (test code = 31A) 24 IU/L <=78 CBC (INCLUDES AUTOMATED DIFFERENTIAL)*[id number] 03:41:00 Test Item Value Reference Range Interpretation Comments WBC (test code = WBC) 11.5 10\S\3/uL 4.5-11.0 H RBC (test code = RBC) 3.91 10\S\6/uL 4.20-5.60 L HGB (test code = HBG) 11.5 g/dL 12.0-15.5 L HCT (test code = HCT) 35.3 % 35.0-44.0 MCV (test code = MCV) 90.3 fL 81.0-99.0 MCH (test code = MCH) 29.4 pg 27.0-31.0 MCHC (test code = MCHC) 32.6 g/dL 32.0-36.0 RDW (test code = RDW) 13.1 % 11.5-14.5 PLT (test code = PLT) 299 10\S\3/uL 130-400 MPV (test code = MPV) 10.1 fL 9.4-12.4 NEUTROP # (test code = NE#) 7.3 10\S\3/uL 1.6-8.0 LYMPH # (test code = LY#) 2.8 10\S\3/uL 1.1-3.5 MONOCYTE # (test code = MO#) 1.1 10\S\3/uL 0.0-1.1 EOSINOPH # (test code = EO#) 0.2 10\S\3/uL 0.0-0.7 BASOPHIL # (test code = BA#) 0.1 10\S\3/uL 0.0-0.3 IG # (test code = IG#) 0.04 10\S\3/uL 0.00-0.06 NRBC # (test code = NRBC#) 0.00 10\S\3/uL 0.00-0.01 NEUTROPH % (test code = NE%) 63.1 % 35.0-73.0 LYMPH % (test code = LY%) 24.7 % 20.0-55.0 MONO % (test code = MO%) 9.4 % 2.5-10.0 EOSINOPH % (test code = EO%) 2.0 % 0.0-5.0 BASOPHIL % (test code = BA%) 0.5 % 0.0-2.0 IG % (test code = IG%) 0.3 % 0.0-0.8 NRBC% (test code = NRBC%) 0.0 % 0.0-0.2 MANDIFF (test code = WMDIFF) NO NO RBC MORPH (test code = NORMAL WRBCMOR) WOUND/SKIN/ABS.&GRAMSTAIN [id number] 14:59:00 Test Item Value Reference Range Interpretation Comments Direct Exam RARE WHITE BLOOD (test code = CELLS SEEN DE1) Direct Exam RARE RED BLOOD CELLS (test code = SEEN DE2) Direct Exam NO ORGANISMS SEEN (test code = DE3) Isolate 1 (test Mycobacterium TESTING PER FORMED code = ISO1) abscessus BY: [facility] [place] [id number] [phone] WOUND/SKIN/ABS.&GRAMSTAIN [id number] 14:57:00 Test Item Value Reference Range Interpretation Comments Direct Exam RARE WHITE BLOOD (test code = CELLS SEEN DE1) Direct Exam MODERATE RED BLOOD (test code = CELLS SEEN DE2) Direct Exam NO ORGANISMS SEEN (test code = DE3) Isolate 1 (test Mycobacterium TESTING PER FORMED code = ISO1) abcessus BY: [facility] [place], [id number] 602 ANAEROBIC [id number] 09:04:00 Test Item Value Reference Range Interpretation Comments Culture Observations NO ANAEROBES ISOLATED (test code = COB1) AT 5 DAYS. CULTURE HELD FOR 5 DAYS ANAEROBIC [id number] 09:03:00 Test Item Value Reference Range Interpretation Comments Culture Observations NO ANAEROBES ISOLATED (test code = COB1) AT 5 DAYS. CULTURE HELD FOR 5 DAYS ANAEROBIC [id number] 09:02:00 Test Item Value Reference Range Interpretation Comments Culture Observations NO ANAEROBES ISOLATED (test code = COB1) AT 5 DAYS. CULTURE HELD FOR 5 DAYS WOUND/SKIN/ABS.&GRAMSTAIN [id number] 08:56:00 Test Item Value Reference Range Interpretation Comments Culture Observations NO GROWTH AFTER 3 (test code = COB1) DAYS Direct Exam (test code = RARE WHITE BLOOD DE1) CELLS SEEN Direct Exam (test code = FEW RED BLOOD CELLS DE2) SEEN Direct Exam (test code = NO ORGANISMS SEEN DE3) BASIC METABOLIC PANEL *WW*2017-04-23 06:13:00 Test Item Value Reference Range Interpretation Comments GLUCOSE (test code = 06D) 103 mg/dL 75-100 H SODIUM (test code = 01A) 143 mmol/L 136-145 POTASSIUM (test code = 01B) 4.0 mmol/L 3.6-5.1 CHLORIDE (test code = 04A) 103 mmol/L 98-107 CO2 (test code = 02A) 32 mmol/L 22-32 ANION GAP (test code = ANG) 12.0 mmol/L BUN (test code = 05D) 8 mg/dL 7-18 CREATININE (test code = 03E) 0.6 mg/dL 0.4-1.1 BUN/CREA R (test code = BCR) 13 12-20 CALCIUM (test code = 09D) 8.7 mg/dL 8.3-9.5 CBC (INCLUDES AUTOMATED DIFFERENTIAL)*[id number] 06:05:00 Test Item Value Reference Range Interpretation Comments WBC (test code = WBC) 9.5 10\S\3/uL 4.5-11.0 RBC (test code = RBC) 3.49 10\S\6/uL 4.20-5.60 L HGB (test code = HBG) 10.6 g/dL 12.0-15.5 L HCT (test code = HCT) 33.5 % 35.0-44.0 L MCV (test code = MCV) 96.0 fL 81.0-99.0 MCH (test code = MCH) 30.4 pg 27.0-31.0 MCHC (test code = MCHC) 31.6 g/dL 32.0-36.0 L RDW (test code = RDW) 13.1 % 11.5-14.5 PLT (test code = PLT) 252 10\S\3/uL 130-400 MPV (test code = MPV) 9.7 fL 9.4-12.4 NEUTROP # (test code = NE#) 5.9 10\S\3/uL 1.6-8.0 LYMPH # (test code = LY#) 2.4 10\S\3/uL 1.1-3.5 MONOCYTE # (test code = MO#) 0.8 10\S\3/uL 0.0-1.1 EOSINOPH # (test code = EO#) 0.3 10\S\3/uL 0.0-0.7 BASOPHIL # (test code = BA#) 0.0 10\S\3/uL 0.0-0.3 IG # (test code = IG#) 0.03 10\S\3/uL 0.00-0.06 NRBC # (test code = NRBC#) 0.00 10\S\3/uL 0.00-0.01 NEUTROPH % (test code = NE%) 62.6 % 35.0-73.0 LYMPH % (test code = LY%) 24.9 % 20.0-55.0 MONO % (test code = MO%) 8.6 % 2.5-10.0 EOSINOPH % (test code = EO%) 3.3 % 0.0-5.0 BASOPHIL % (test code = BA%) 0.3 % 0.0-2.0 IG % (test code = IG%) 0.3 % 0.0-0.8 NRBC% (test code = NRBC%) 0.0 % 0.0-0.2 MANDIFF (test code = WMDIFF) NO NO RBC MORPH (test code = NORMAL WRBCMOR) BASIC METABOLIC PANEL 2017-04-22 05:47:00 Test Item Value Reference Range Interpretation Comments GLUCOSE (test code = 06D) 116 mg/dL 75-100 H SODIUM (test code = 01A) 141 mmol/L 136-145 POTASSIUM (test code = 01B) 3.9 mmol/L 3.6-5.1 CHLORIDE (test code = 04A) 103 mmol/L 98-107 CO2 (test code = 02A) 32 mmol/L 22-32 ANION GAP (test code = ANG) 9.9 mmol/L BUN (test code = 05D) 10 mg/dL 7-18 CREATININE (test code = 03E) 0.7 mg/dL 0.4-1.1 BUN/CREA R (test code = BCR) 15 12-20 CALCIUM (test code = 09D) 8.3 mg/dL 8.3-9.5 CBC (INCLUDES AUTOMATED DIFFERENTIAL)*[id number] 05:37:00 Test Item Value Reference Range Interpretation Comments WBC (test code = WBC) 8.1 10\S\3/uL 4.5-11.0 RBC (test code = RBC) 3.57 10\S\6/uL 4.20-5.60 L HGB (test code = HBG) 10.7 g/dL 12.0-15.5 L HCT (test code = HCT) 34.7 % 35.0-44.0 L MCV (test code = MCV) 97.2 fL 81.0-99.0 MCH (test code = MCH) 30.0 pg 27.0-31.0 MCHC (test code = MCHC) 30.8 g/dL 32.0-36.0 L RDW (test code = RDW) 13.2 % 11.5-14.5 PLT (test code = PLT) 249 10\S\3/uL 130-400 MPV (test code = MPV) 9.8 fL 9.4-12.4 NEUTROP # (test code = NE#) 5.0 10\S\3/uL 1.6-8.0 LYMPH # (test code = LY#) 2.0 10\S\3/uL 1.1-3.5 MONOCYTE # (test code = MO#) 0.7 10\S\3/uL 0.0-1.1 EOSINOPH # (test code = EO#) 0.3 10\S\3/uL 0.0-0.7 BASOPHIL # (test code = BA#) 0.0 10\S\3/uL 0.0-0.3 IG # (test code = IG#) 0.02 10\S\3/uL 0.00-0.06 NRBC # (test code = NRBC#) 0.00 10\S\3/uL 0.00-0.01 NEUTROPH % (test code = NE%) 61.8 % 35.0-73.0 LYMPH % (test code = LY%) 25.1 % 20.0-55.0 MONO % (test code = MO%) 9.2 % 2.5-10.0 EOSINOPH % (test code = EO%) 3.5 % 0.0-5.0 BASOPHIL % (test code = BA%) 0.2 % 0.0-2.0 IG % (test code = IG%) 0.2 % 0.0-0.8 NRBC% (test code = NRBC%) 0.0 % 0.0-0.2 MANDIFF (test code = WMDIFF) NO NO RBC MORPH (test code = NORMAL WRBCMOR) NICOTINE/COTININE (URINE)2017-04-20 10:57:00 Test Item Value Reference Range Interpretation Comments NICOTINE (test code = WNICOTN) NEGATIVE NEGATIVE NICOTINE/COTININE (URINE)2017-04-10 10:24:00 Test Item Value Reference Range Interpretation Comments NICOTINE (test code = WNICOTN) POSITIVE NEGATIVE A
[2022-08-29] MEDS ORDERED: ASPIRIN 81 MG CHEWABLE TABLET ONE (18:01)
[2022-08-29] MEDS ORDERED: IBUPROFEN 400 MG TAB ONE (18:02)
[2022-08-29] MEDS ORDERED: IBUPROFEN 200 MG TAB PO ONE (18:04)
[2022-08-29 18:13] LABS: Absolute Lymphocytes (CBC) 0.5 K/uL (0.7-4.9); Hematocrit 39.6 % (36.0-45.0); Lymphocytes % 7.4 % (15.3-44.8); MCV 93.2 fL (80-100); MPV 8.1 fL (7.6-11.3); RBC Red Blood Cell Count 4.24 M/uL (3.86-4.86)
[2022-08-29] MEDS ORDERED: NA CHLORIDE 0.9% 50 ML IV ONE (18:14)
[2022-08-29] MEDS ORDERED: CEFTRIAXONE 1000 MG/VIAL ONE (18:14)
[2022-08-29 18:30] LABS: ALT/SGPT 56 U/L (12-78); AST/SGOT 41 U/L (15-37); Albumin 3.3 g/dL (3.4-5.0); Alkaline Phosphatase 85 U/L (45-117); BUN Blood Urea Nitrogen 9 mg/dL (7-18); Bicarbonate 34 mmol/L (21-32); Bilirubin Total 0.2 mg/dL (0.2-1.0); Glomerular Filtration Rate 103 ml/min (=/>90); Glucose Level 106 mg/dL (74-106); Magnesium 1.8 mg/dL (1.8-2.4); Potassium 3.7 mmol/L (3.5-5.1); Protein, Total 7.3 g/dL (6.4-8.2); Sodium Level 138 mmol/L (136-145); Troponin High Sensitivity 6.8 pg/mL (<58.9)
[2022-08-29 18:32] LABS: Bilirubin Direct < 0.1 mg/dL (0-0.2)
[2022-08-29 18:50] LABS: SARS-COV-2 RT PCR NEGATIVE (NEGATIVE)
--- NOTE | 2022-08-29 18:59 | RAD REPORT ---
EXAM DESCRIPTION: RAD - Chest Single View - 08/29/2022 6:25 pm CLINICAL HISTORY: SOB COMPARISON: None TECHNIQUE: AP portable chest image was obtained 08/29/2022 6:25 pm . FINDINGS: No peripheral mass consolidations seen. Left base is more limited due to under penetrated technique and overlying soft tissues. A significant left base process is not suspected. Failure and v olume overload are not suspected. No hilar mass or lymphadenopathy. Heart and vasculature are normal. No measurable pleural effusion an d no pneumothorax. No acute bony abnormality seen. No acute aortic findings suspected. IMPRESSION: Limited portable study without acute cardiopulmonary process.
--- NOTE | 2022-08-29 19:05 | ER ---
Nurse's Notes [facility] Name: Dave Luque Age: 62 yrs Sex: Female : 1960 Arrival Date: 08/29/2022 Time: 17:32 Bed 15 Private MD: Diagnosis: Influenza due to identified novel influenza A virus;Hypoxemia Presentation: 08/29 17:41 Chief complaint: Patient states: SOB since yesterday. Coronavirus screen: Vaccine jl7 status: Patient reports being unvaccinated. shortness of breath, Client presents with at least one sign or symptom that may indicate coronavirus-19. Ebola Screen: No symptoms or risks identified at this time. 17:41 Method Of Arrival: Ambulatory [facility] 17:41 Initial Sepsis Screen: Does the patient meet any 2 criteria? No. Patient's initial jl7 sepsis screen is negative. Does the patient have a suspected source of infection? No. Patient's initial sepsis screen is negative. Risk Assessment: Do you want to hurt yourself or someone else? Patient reports no desire to harm self or others. Onset of symptoms was August 28, 2022. 17:41 Acuity: EMERSON 2 jl7 Triage Assessment: 17:51 General: Appears distressed, uncomfortable, Behavior is cooperative, appropriate for 8 age, anxious. Pain: Denies pain. Respiratory: Reports shortness of breath at rest Airway is patent Respiratory effort is even, labored, with retractions, Respiratory pattern is symmetrical, tachypnea Onset: The symptoms/episode began/occurred yesterday, the patient has severe shortness of breath. Historical: - Allergies: 17:51 No Known Allergies; jl7 - Home Meds: 17:51 Zithromax 500 mg Oral tab [Active]; jl7 - PMHx: 17:51 Hypercholesterolemia; jl7 - PSHx: 17:51 tummy tuck; jl7 - Immunization history:: Client reports having NOT received the Covid vaccine. - Social history:: Smoking status: Reported history of juuling and/or vaping. Screenin:10 Abuse screen: Denies threats or abuse. Denies injuries from another. Nutritional db screening: No deficits noted. Tuberculosis screening: No symptoms or risk factors identified. Fall Risk None identified. No fall in past 12 months (0 pts). No secondary diagnosis (0 pts). IV access (20 points). Ambulatory Aid- None/Bed Rest/Nurse Assist (0 pts). Gait- Normal/Bed Rest/Wheelchair (0 pts) Mental Status- Overestimates/Forgets Limitations (15 pts.). Total Canseco Fall Scale indicates No Risk (0-24 pts). Assessment: 17:41 Reassessment: [employer] Karlene at bedside assessing pt. jl7 18:08 Reassessment: Patient is alert, oriented x 3, equal unlabored respirations, skin db warm/dry/pink. patient came in with SOB and chest pain started yesterday worse today. Fever in triage. patient states was sick with fever and she took care of him. General: Appears in no apparent distress. uncomfortable, Behavior is anxious. Cardiovascular: Reports chest pain, shortness of breath, Capillary refill < 3 seconds Rhythm is regular Chest pain began 1 day ago. Respiratory: Airway is patent Respiratory effort is even, labored, Respiratory pattern is regular, symmetrical, Breath sounds are coarse. GI: No deficits noted. No signs and/or symptoms were reported involving the gastrointestinal system. GI: No deficits noted. No signs and/or symptoms were reported involving the gastrointestinal system. : No deficits noted. No signs and/or symptoms were reported regarding the genitourinary system. EENT: No deficits noted. No signs and/or symptoms were reported regarding the EENT system. Derm: No deficits noted. No signs and/or symptoms reported regarding the dermatologic system. Musculoskeletal: No deficits noted. No signs and/or symptoms reported regarding the musculoskeletal system. 18:45 Reassessment: patient assisted to restroom with wheelchair. Patient complains of SOB db from wheelchair to toilet. Patient brought back to room and placed back on O2. Vital Signs: 17:41 BP 132 / 80; Pulse 92; Resp 26; Temp 101.1; Pulse Ox 82% on R/A; Weight 95.25 kg; jl7 Height 5 ft. (152.40 cm); Pain 0/10; 18:00 BP 116 / 73; Pulse 84; Resp 16; Pulse Ox 95% on R/A; db 18:45 Temp 98.8(O); db 20:16 BP 122 / 70; Pulse 84; Resp 19; Pulse Ox 96% on 2 lpm NC; kd3 17:41 Body Mass Index 41.01 (95.25 kg, 152.40 cm) jl7 ED Course: 17:32 Patient arrived in ED. as 17:36 Karlene Gallardo FNP-C is [facility]. snw 17:36 Shawn Tamayo MD is Attending Physician. snw 17:44 Ericka Tai, RN is Primary Nurse. db 17:51 Triage completed. jl7 17:51 Arm band placed on right wrist. jl7 17:55 Inserted saline lock: 20 gauge in right antecubital area, using aseptic technique. db Blood collected. 18:10 Patient has correct armband on for positive identification. Bed in low position. Call db light in reach. Side rails up X 1. Client placed on continuous cardiac and pulse oximetry monitoring. NIBP monitoring applied. Door closed. Noise minimized. 18:11 Pt visited by . db 18:27 XRAY Chest (1 view) In Process Unspecified. EDMS 19:04 Bipin Chambers is Hospitalizing Provider. snw 19:12 Primary Nurse role handed off by Ericka Tai, RN mw2 20:05 Kylee Rose, THERESA is Primary Nurse. kd3 20:15 No provider procedures requiring assistance completed. Patient admitted, IV remains in kd3 place. Administered Medications: 18:07 Drug: Aspirin Chewable Tablet 324 mg Route: PO; db 18:57 Follow up: Response: No adverse reaction db 18:07 Drug: Motrin (ibuprofen) 600 mg Route: PO; db 18:57 Follow up: Response: No adverse reaction db 18:15 Drug: Rocephin (cefTRIAXone) 1 grams Route: IV; Rate: calculated rate; Site: right db antecubital; 18:57 Follow up: Response: No adverse reaction; IV Status: Completed infusion; IV Intake: 50mldb Medication: 20:16 VIS not applicable for this client. kd3 Intake: 18:57 IV: 50ml; Total: 50ml. db Outcome: 19:05 Decision to Hospitalize by Provider. snw 20:16 Admitted to ER Hold. Please see [facility] for further documentation. kd3 20:16 Condition: stable 20:16 Discharge instructions given to patient, Instructed on the need for admit, Demonstrated understanding of instructions. 08/30 16:31 Admitted to Med/surg Report called to Nancy figueroa 17:03 Admitted to Med/surg accompanied by nurse, via wheelchair, with oxygen. kr3 17:04 Patient left the ED. kr3 Signatures: Dispatcher [employer] EDMS Karlene Gallardo, DIE REPAIR-C DIE REPAIR-Csnw Jennifer Sanchez Jahala, RN RN jl7 Juliana Baldwin 2 Kylee Rose RN RN kd3 Felicitas Zavala RN RN kr3 Ericka Tai RN RN db
--- NOTE | 2022-08-29 19:05 | EDPHYS ---
Physician Documentation [facility] Name: Dave Luque Age: 62 yrs Sex: Female : 1960 Arrival Date: 08/29/2022 Time: 17:32 Bed 15 Private MD: ED Physician Shawn Tamayo HPI: 08/29 18:14 This 62 yrs old Female presents to ER via Ambulatory with complaints of Shortness Of snw Breath. 18:14 The patient has shortness of breath at rest. Onset: The symptoms/episode began/occurred snw suddenly, 2 day(s) ago, and became persistent. Duration: The symptoms are continuous. The patient's shortness of breath is aggravated by coughing, exertion. Associated signs and symptoms: Pertinent positives: non-productive cough. Severity of symptoms: At their worst the symptoms were moderate severe in the emergency department the symptoms are unchanged. The patient has not experienced similar symptoms in the past. The patient has not recently seen a physician. Spouse with URI with fever over the weekend. Historical: - Allergies: 17:51 No Known Allergies; jl7 - Home Meds: 17:51 Zithromax 500 mg Oral tab [Active]; jl7 - PMHx: 17:51 Hypercholesterolemia; jl7 - PSHx: 17:51 tummy tuck; jl7 - Immunization history:: Client reports having NOT received the Covid vaccine. - Social history:: Smoking status: Reported history of juuling and/or vaping. ROS: 18:13 Eyes: Negative for injury, pain, redness, and discharge, ENT: Negative for injury, snw pain, and discharge, Neck: Negative for injury, pain, and swelling, Cardiovascular: Negative for chest pain, palpitations, and edema. 18:13 Abdomen/GI: Negative for abdominal pain, nausea, vomiting, diarrhea, and constipation, Back: Negative for injury and pain, : Negative for injury, bleeding, discharge, and swelling, MS/Extremity: Negative for injury and deformity, Skin: Negative for injury, rash, and discoloration, Neuro: Negative for headache, weakness, numbness, tingling, and seizure. 18:13 Constitutional: Positive for body aches, malaise. 18:13 Respiratory: Positive for cough, shortness of breath, at rest. Exam: 17:47 Constitutional: This is a well developed, well nourished patient who is awake, alert, snw and in no acute distress. Head/Face: Normocephalic, atraumatic. Eyes: Pupils equal round and reactive to light, extra-ocular motions intact. Lids and lashes normal. Conjunctiva and sclera are non-icteric and not injected. Cornea within normal limits. Periorbital areas with no swelling, redness, or edema. ENT: Nares patent. No nasal discharge, no septal abnormalities noted. Tympanic membranes are normal and external auditory canals are clear. Oropharynx with no redness, swelling, or masses, exudates, or evidence of obstruction, uvula midline. Mucous membranes moist. Neck: Trachea midline, no thyromegaly or masses palpated, and no cervical lymphadenopathy. Supple, full range of motion without nuchal rigidity, or vertebral point tenderness. No Meningismus. Chest/axilla: Normal chest wall appearance and motion. Nontender with no deformity. No lesions are appreciated. Cardiovascular: Regular rate and rhythm with a normal S1 and S2. No gallops, murmurs, or rubs. Normal PMI, no JVD. No pulse deficits. 17:47 Abdomen/GI: Soft, non-tender, with normal bowel sounds. No distension or tympany. No guarding or rebound. No evidence of tenderness throughout. Back: No spinal tenderness. No costovertebral tenderness. Full range of motion. Skin: Warm, dry with normal turgor. Normal color with no rashes, no lesions, and no evidence of cellulitis. MS/ Extremity: Pulses equal, no cyanosis. Neurovascular intact. Full, normal range of motion. Neuro: Awake and alert, GCS 15, oriented to person, place, time, and situation. Cranial nerves II-XII grossly intact. Motor strength 5/5 in all extremities. Sensory grossly intact. Cerebellar exam normal. Normal gait. Psych: Awake, alert, with orientation to person, place and time. Behavior, mood, and affect are within normal limits. 17:47 Respiratory: mild respiratory distress is noted, Respirations: splinting, that is mild, tachypnea, that is mild, Breath sounds: rhonchi, that are moderate, are located in both bases. Vital Signs: 17:41 BP 132 / 80; Pulse 92; Resp 26; Temp 101.1; Pulse Ox 82% on R/A; Weight 95.25 kg; jl7 Height 5 ft. (152.40 cm); Pain 0/10; 18:00 BP 116 / 73; Pulse 84; Resp 16; Pulse Ox 95% on R/A; db 18:45 Temp 98.8(O); db 20:16 BP 122 / 70; Pulse 84; Resp 19; Pulse Ox 96% on 2 lpm NC; kd3 17:41 Body Mass Index 41.01 (95.25 kg, 152.40 cm) jl7 MDM: 17:59 Patient medically screened. snw 18:10 Antibiotic administration: The patient is discharged and will get outpatient snw antibiotics, Zithromax, pt has been on this x 6yr per report for a chronic surgical (tummy tuck) infection. Data reviewed: vital signs, nurses notes. Data interpreted: Pulse oximetry: on room air is 82 %. Interpretation: hypoxia. Plan: O2 by NC applied. ED course: pt has either viral or bacterial upper respiratory source of infection, fever, hypoxia. + sepsis. No severe sepsis criteria at this time.. 19:05 ED course: Pt with sepsis related to influenza A. snw 19:05 Physician consultation: Saira Ortega PA-C was called at 19:05, was contacted at 19:05, snw regarding admission, to the telemetry unit. would like admission per Dr. Bipin Chambers. 08/29 17:47 Order name: Basic Metabolic Panel; Complete Time: 18:45 snw 08/29 17:47 Order name: CBC with Diff; Complete Time: 18:21 snw 08/29 17:47 Order name: LFT's; Complete Time: 18:45 snw 08/29 17:47 Order name: Magnesium; Complete Time: 18:45 snw 08/29 17:47 Order name: Troponin HS; Complete Time: 18:45 snw 08/29 17:47 Order name: Blood Culture Adult (2); Complete Time: 09:06 snw 08/29 17:47 Order name: XRAY Chest (1 view); Complete Time: 19:02 snw 08/29 17:47 Order name: Lactate; Complete Time: 19:02 snw 08/29 17:47 Order name: COVID-19/FLU A+B/RSV; Complete Time: 19:00 snw 08/29 18:02 Order name: Procalcitonin; Complete Time: 20:27 snw 08/30 15:28 Order name: CT; Complete Time: 09:06 EDMS 08/29 17:47 Order name: EKG; Complete Time: 17:48 snw 08/29 17:47 Order name: Cardiac monitoring; Complete Time: 18:07 snw 08/29 17:47 Order name: EKG - Nurse/Tech; Complete Time: 18:07 snw 08/29 17:47 Order name: IV Saline Lock; Complete Time: 18:07 snw 08/29 17:47 Order name: Labs collected and sent; Complete Time: 18:07 snw 08/29 17:47 Order name: O2 Per Protocol; Complete Time: 18:07 snw 08/29 17:47 Order name: O2 Sat Monitoring; Complete Time: 18:07 snw EC:55 Rate is 84 beats/min. Rhythm is regular. T waves are Inverted in leads aVL, V2, V3. snw Clinical impression: NSR w/ Non-specific ST/T Changes. Administered Medications: 18:07 Drug: Aspirin Chewable Tablet 324 mg Route: PO; db 18:57 Follow up: Response: No adverse reaction db 18:07 Drug: Motrin (ibuprofen) 600 mg Route: PO; db 18:57 Follow up: Response: No adverse reaction db 18:15 Drug: Rocephin (cefTRIAXone) 1 grams Route: IV; Rate: calculated rate; Site: right db antecubital; 18:57 Follow up: Response: No adverse reaction; IV Status: Completed infusion; IV Intake: 50mldb Disposition Summary: 08/29/22 19:05 Hospitalization Ordered Hospitalization Status: Inpatient Admission snw Provider: Bipin Chambers snperi Condition: Stable snw Problem: new snw Symptoms: are unchanged snw Bed/Room Type: Standard snw Location: Telemetry/MedSurg (Inpatient)(08/30/22 15:37) bd Room Assignment: 222(08/30/22 15:37) bd Diagnosis - Influenza due to identified novel influenza A virus snw - Hypoxemia snw Forms: - Medication Reconciliation Form snw - SBAR form snw Addendum: 09/06/2022 19:37 Co-signature as Attending Physician, Shawn Tamayo MD. r n Signatures: Dispatcher [employer] EDMS Asuncion Orozco Shelly, REFUND SPECIALIST-C REFUND SPECIALIST-Csnw Alex Galindo PA PA jmm Nieto, Roman, MD MD rn Garcia, Cindy RN RN Ronald Brody RN RN jl7 Ericka Tai RN RN db Corrections: (The following items were deleted from the chart) 08/29 19:55 19:05 Telemetry/MedSurg (Inpatient) snw cg 19:55 19:05 snw cg 08/30 15:37 08/29 19:55 [facility] ER HOLD cg bd 08/30 15:37 08/29 19:55 ERHOLD- cg bd
--- NOTE | 2022-08-29 19:19 | P.HP ---
Certification for Inpatient Patient admitted to: Observation With expected LOS: <2 Midnights Patient will require the following post-hospital care: None Practitioner: I am a practitioner with admitting privileges, knowledge of patient current condition, hospital course, and medical plan of care. Services: Services provided to patient in accordance with Admission requirements found in Title 42 Section 412.3 of the Code of Federal Regulations Patient History Date of Service: 08/29/22 Reason for admission: Influenza, Hypoxia History of Present Illness: Patient is a 62-year-old female with no significant medical history who presented to the ED with complaints of shortness of breath and cough. Patient reports that her had a URI over the weekend and now she has been experiencing similar symptoms since yesterday. In the ED, she was noted to be febrile and hypoxic on room air at 82%. She was put on 2L nasal cannula and improved to 95%. Her labs are unremarkable. She is positive for flu A. She was given Rocephin, ibuprofen, and aspirin in the ED. Patient is admitted for further management. Home medications list reviewed: Yes - Past Medical/Surgical History Past Medical History: Patient denies medical history -: Bicep tendon repair -: Tummy Turishi Psychosocial/ Personal History: Patient is . - Social History Smoking Status: Current every day smoker Alcohol use: No CD- Drugs: No Caffeine use: Yes Place of Residence: Home Review of Systems General: Fever Respiratory: Cough, Shortness of Breath Physical Examination - Physical Exam General: Alert, In no apparent distress HEENT: Atraumatic, PERRLA, EOMI, Sclerae nonicteric Neck: Supple, 2+ carotid pulse no bruit, No LAD, Without JVD or thyroid abnormality Respiratory: Clear to auscultation bilaterally, Normal air movement Cardiovascular: Regular rate/rhythm, Normal S1 S2 Gastrointestinal: Normal bowel sounds, No tenderness Musculoskeletal: No tenderness Integumentary: No rashes Neurological: Normal speech, Normal strength at 5/5 x4 extr, Normal tone, Normal affect - Studies Laboratory Data (last 24 hrs) 08/29/22 17:57: WBC 6.10, Hgb 13.1, Hct 39.6, Plt Count 166 08/29/22 17:57: Sodium 138, Potassium 3.7, BUN 9, Creatinine 0.58, Glucose 106, Magnesium 1.8, Total Bilirubin 0.2, AST 41 H, ALT 56, Alkaline Phosphatase 85 Assessment and Plan - Problems (Diagnosis) (1) Influenza A Current Visit: Yes Status: Acute (2) Acute respiratory failure with hypoxia Current Visit: Yes Status: Acute - Plan Patient is admitted for observation. She is requiring supplemental O2- 2L NC at this time. Titrate and wean as tolerated. Supportive measures with breathing treatments, antitussives, tylenol, tamiflu, IV fluids. Patient received rocephin in the ED. No indication for continuing antibiotic therapy. Monitor and replete electrolytes per protocol. Reconcile and continue home medications. VTE prophylaxis. Full code. Discharge Plan: Home Plan to discharge in: 24 Hours - Advance Directives Does patient have a Living Will: No Does patient have a Durable POA for Healthcare: No - Code Status/Comfort Care Code Status Assessed: Yes (Full) Critical Care: No Time Spent Managing Pts Care (In Minutes): 50
[2022-08-29] MEDS: NA CHLORIDE 0.9% 1,000 ML IV SCH (20:08)
[2022-08-29] MEDS ORDERED: ALBUTEROL 2.5 MG/3 ML NEB SOL NEB PRN (20:08)
[2022-08-29] MEDS ORDERED: ACETAMINOPHEN 325 MG TABLET PO PRN (20:08)
[2022-08-29] MEDS ORDERED: ONDANSETRON 4 MG/2 ML VIAL IV PRN (20:08)
[2022-08-29] MEDS: OSELTAMIVIR 75 MG CAP PO SCH (21:00)
[2022-08-29] MEDS ORDERED: OSELTAMIVIR 75 MG CAP ONE (21:22)
[2022-08-29] MEDS ORDERED: NA CHLORIDE 0.9% 1,000 ML ONE (21:22)
[2022-08-29 21:40] VITALS: BMI 41.0
[2022-08-30] MEDS ORDERED: HYDROCODONE/APAP 10/325 TAB ONE ×2 (00:52→10:24)
[2022-08-30] MEDS: HYDROCODONE/APAP 10/325 TAB PO PRN ×3 (00:54→20:10)
[2022-08-30] MEDS: NA CHLORIDE 0.9% 1,000 ML IV SCH ×3 (06:08→17:14)
[2022-08-30] MEDS ORDERED: INFLUENZA VACCINE (for 6+ mo) 0.5 ML DOSE IMVAC ONE (08:00)
[2022-08-30] MEDS: OSELTAMIVIR 75 MG CAP PO SCH ×2 (09:00→20:10)
[2022-08-30] MEDS ORDERED: NA CHLORIDE 0.9% 1,000 ML ONE ×2 (10:05→10:24)
[2022-08-30] MEDS ORDERED: OSELTAMIVIR 75 MG CAP ONE (10:05)
--- NOTE | 2022-08-30 15:27 | RAD REPORT ---
EXAM DESCRIPTION: CT - Chest For Pe Angio - 08/30/2022 3:12 pm CLINICAL HISTORY: Chest pain. Hypoxia COMPARISON: No comparisons TECHNIQUE: CT angiogram of the pulmonary arteries was performed with MIP. All CT scans are performed using dose optimization technique as appropriate and may include automated exposure control or mA/KV adjustment according to patient size. FINDINGS: No evidence of pulmonary thromboembolism. No acute aortic finding demonstrated. Small opacity is present in the lingula which may represent atelectasis. Mild atelectasis also in the right lung base. No significant pericardial or pleural fluid. No concerning bony finding. IMPRESSION: No evidence of pulmonary thromboembolism. Small lung opacities in the lingula and right lung base likely represent atelectasis.
--- NOTE | 2022-08-30 16:09 | P.PN ---
Subjective Date of Service: 08/30/22 Chief Complaint: Influenza, Hypoxia Patient reports improvement in her shortness of breath. She remains hypoxic on room air. No fever. Physical Examination - Vital Signs Blood Pressure: 123/57 Pulse: 72 Respirations: 18 Pulse Ox (%): 94 - Studies Laboratory Data (last 24 hrs) 08/29/22 17:57: WBC 6.10, Hgb 13.1, Hct 39.6, Plt Count 166 08/29/22 17:57: Sodium 138, Potassium 3.7, BUN 9, Creatinine 0.58, Glucose 106, Magnesium 1.8, Total Bilirubin 0.2, AST 41 H, ALT 56, Alkaline Phosphatase 85 Assessment And Plan - Current Problems (Diagnosis) (1) Acute respiratory failure with hypoxia Current Visit: Yes Status: Acute (2) Influenza A Current Visit: Yes Status: Acute - Plan Physical Exam General: Alert, In no apparent distress HEENT: Atraumatic, PERRLA, EOMI, Sclerae nonicteric Neck: Supple, 2+ carotid pulse no bruit, No LAD, Without JVD or thyroid abnormality Respiratory: Clear to auscultation bilaterally, Normal air movement Cardiovascular: Regular rate/rhythm, Normal S1 S2 Gastrointestinal: Normal bowel sounds, No tenderness Musculoskeletal: No tenderness Integumentary: No rashes Neurological: Normal speech, Normal strength at 5/5 x4 extr, Normal tone, Normal affect Plan: Patient is clinically improving though no change in oxygen requirement. I suspect patient has a form of chronic lung disease. She is an ex-smoker and COPD is likely. CTA thorax reviewed-no pulmonary embolism. I suspect increased interstitial m arkings. Continue Tamiflu No indication for antibiotic. Noted elevated bicarb. Obtain arterial blood gas to rule out CO2 retention. Patient may need home oxygen.
[2022-08-30 17:52] LABS: Arterial Blood Carboxyhemoglob 0.6 % (0-1.5); Blood O2 Saturation 95.7 % (92-98.5)
[2022-08-30] MEDS: ALBUTEROL 2.5 MG/3 ML NEB SOL NEB PRN (20:50)
[2022-08-30] MEDS: BENZONATATE 100 MG CAP PO PRN (21:11)
[2022-08-31] MEDS: NA CHLORIDE 0.9% 1,000 ML IV SCH ×2 (02:17→09:10)
[2022-08-31] MEDS ORDERED: MAGNESIUM SULFATE 1 gm IVPB 1 GM/100 ML BAG IV ONE (09:00)
[2022-08-31] MEDS ORDERED: POTASSIUM CL SA 10 MEQ TAB PO ONE (09:00)
[2022-08-31] MEDS: HYDROCODONE/APAP 10/325 TAB PO PRN ×2 (09:10→16:36)
[2022-08-31] MEDS: OSELTAMIVIR 75 MG CAP PO SCH ×2 (09:10→20:01)
[2022-08-31] MEDS: ALBUTEROL 2.5 MG/3 ML NEB SOL NEB PRN ×2 (09:27→14:06)
[2022-08-31] MEDS: BENZONATATE 100 MG CAP PO PRN ×2 (14:08→20:00)
--- NOTE | 2022-08-31 18:49 | P.PN ---
Subjective Date of Service: 08/31/22 Chief Complaint: Influenza, Hypoxia Patient reports feeling much better and desires to go home. She remains hypoxic on room air. Physical Examination - Vital Signs Temperature: 97.1 F Blood Pressure: 102/53 Pulse: 69 Respirations: 16 Pulse Ox (%): 95 Assessment And Plan - Current Problems (Diagnosis) (1) Acute respiratory failure with hypoxia Current Visit: Yes Status: Acute (2) Influenza A Current Visit: Yes Status: Acute - Plan Physical Exam General: Alert, In no apparent distress HEENT: Atraumatic, PERRLA, EOMI, Sclerae nonicteric Neck: Supple, 2+ carotid pulse no bruit, No LAD, Without JVD or thyroid abnormality Respiratory: Clear to auscultation bilaterally, Normal air movement Cardiovascular: Regular rate/rhythm, Normal S1 S2 Gastrointestinal: Normal bowel sounds, No tenderness Musculoskeletal: No tenderness Integumentary: No rashes Neurological: Normal speech, Normal strength at 5/5 x4 extr, Normal tone, Normal affect Plan: Patient is clinically improving though no change in oxygen requirement. I suspect patient has a form of chronic lung disease. She is an ex-smoker and COPD is likely. CTA thorax reviewed-no pulmonary embolism. Continue Tamiflu No indication for antibiotic. Noted elevated bicarb. ABG shows some CO2 retention. Arranging for home oxygen for COPD. Discharge to home pending oxygen availability.
--- NOTE | 2022-08-31 19:43 | P.DS ---
Admission Date: 08/30/22 Discharge Date: 08/31/22 Disposition: ROUTINE DISCHARGE Discharge Condition: FAIR Reason for Admission: Influenza, Hypoxia - Problems (1) Acute respiratory failure with hypoxia Current Visit: Yes Status: Acute (2) Influenza A Current Visit: Yes Status: Acute Brief History of Present Illness: Patient is a 62-year-old female with no significant medical history who presented to the ED with complaints of shortness of breath and cough. Patient reports that her had a URI over the weekend. In the ED, she was noted to be febrile and hypoxic on room air at 82%. She was put on 2L nasal cannula and improved to 95%. Her labs are unremarkable. She is positive for flu A. Chest x-ray did not show any acute disease. She was given Rocephin, ibuprofen, and aspirin in the ED. Patient admitted for further management. Hospital Course: Patient admitted to the medical floor and treated with Tamiflu. Chest x-ray did not show any acute infiltrate. Patient clinically improved and was asymptomatic the rest of the hospital stay but she remained hypoxic. CTA thorax was negative for pulm embolism and showed mild atelectasis. Arterial blood gas showed CO2 retention indicating COPD. Patient could not wean off oxygen. She is prescribed home oxygen for hypoxia secondary to COPD. Patient informed to follow-up with pulmonary for further evaluation of COPD and treatment. Vital Signs/Physical Exam: Temp Pulse Resp BP Pulse Ox 97.1 F 69 16 102/53 L 95 08/31/22 18:49 08/31/22 18:49 08/31/22 18:49 08/31/22 18:49 08/31/22 18:49 Laboratory Data at Discharge: WBC 6.10 K/uL (4.3-10.9) 08/29/22 17:57 Hgb 13.1 g/dL (12.0-15.0) 08/29/22 17:57 Hct 39.6 % (36.0-45.0) 08/29/22 17:57 Plt Count 166 K/uL (152-406) 08/29/22 17:57 Sodium 138 mmol/L (136-145) 08/29/22 17:57 Potassium 3.7 mmol/L (3.5-5.1) 08/29/22 17:57 BUN 9 mg/dL (7-18) 08/29/22 17:57 Creatinine 0.58 mg/dL (0.55-1.3) 08/29/22 17:57 Glucose 106 mg/dL (74-106) 08/29/22 17:57 Magnesium 1.8 mg/dL (1.8-2.4) 08/29/22 17:57 Total Bilirubin 0.2 mg/dL (0.2-1.0) 08/29/22 17:57 AST 41 U/L (15-37) H 08/29/22 17:57 ALT 56 U/L (12-78) 08/29/22 17:57 Alkaline Phosphatase 85 U/L (45-117) 08/29/22 17:57 Home Medications: Benzonatate [Tessalon Perle*] 100 mg PO TID PRN #30 cap 08/31/22 Fluticasone/Salmeterol [Advair 250-50 Diskus] 1 each IH BID #1 kit 08/31/22 Oseltamivir [Tamiflu*] 75 mg PO BID #7 cap 08/31/22 New Medications: Fluticasone/Salmeterol [Advair 250-50 Diskus] 1 each IH BID #1 kit Oseltamivir [Tamiflu*] 75 mg PO BID #7 cap Benzonatate [Tessalon Perle*] 100 mg PO TID PRN #30 cap PRN Reason: Cough Diet: Regular Activity: Ad shakir Followup: Patrick Rowley MD [ACTIVE - CAN ADMIT] - NONE,NONE [Primary Care Provider] - Time spent managing pt's care (in minutes): 38
[2022-08-31 20:10] VITALS: O2SAT 96
[2022-08-31 20:11] VITALS: BP 114/73; TEMP 97.8
--- NOTE | 2022-09-02 19:22 | EKG ---
Test Date: 2022-08-29 Test Time: 17:52:55 [employer]ing Machinist: LAVON MEASUREMENT RESULTS: Intervals: Rate: 84 WY: 152 QRSD: 78 QT: 338 QTc: 399 [place]: P: 63 W[place]: 152 QRS: 67 T: 108 INTERPRETIVE STATEMENTS: Normal sinus rhythm Low voltage QRS Nonspecific ST and T wave abnormality Abnormal ECG No previous ECG available for comparison Electronically Signed On 09-02-22 19:11:34 CASH MANAGEMENT ASSOCIATE by Donovan Murphy
== END 2022-08-31 20:37 | disposition home or self-care (01) | DRG 871 ==
LOC: ER 17:29 → ERHOLD 19:13 → OBSVTOIN 08-30 16:04 → 2ND 08-30 16:40
PROVIDERS: ADMIT Internal Medicine; ATTEND Internal Medicine
DX: A41.89 Other specified sepsis (principal); J96.01 Acute respiratory failure with hypoxia; R65.20 Severe sepsis without septic shock; J10.1 Influenza due to other identified influenza virus with other respiratory manifestations; J44.9 Chronic obstructive pulmonary disease, unspecified; F17.200 Nicotine dependence, unspecified, uncomplicated; Z28.310 Unvaccinated for COVID-19; Z79.899 Other long term (current) drug therapy; Z20.822 Contact with and (suspected) exposure to COVID-19
CPT/HCPCS: 0241U; 36415; 71045; 71275; 80048; 80076; 82805; 83605; 83735; 84145; 84484; 85025; 87040; 93005; 94640; 94760; 96365; 99285; G0378; J3475; J7030; J7613; Q9967

== ENCOUNTER 2025-01-12 11:00 | Emergency (ER) | payer MEDICAID ==
--- NOTE | 2025-01-12 11:29 | EDPHYS ---
Physician Documentation [facility] Name: Dave Luque Age: 64 yrs Sex: Female : 1960 Arrival Date: 01/12/2025 Time: 11:00 Bed 16 Private MD: ED Physician Kaylah Resendez HPI: 01/12 11:25 This 64 yrs old Female presents to ER via Ambulatory with complaints of Low Back Pain, sp3 Leg Pain. 11:25 64-year-old female with history of hyperlipidemia and chronic low back pain including sp3 sciatica currently been seeing at [facility] that presents with acute left sciatica type pain in her lower back radiating to her left posterior lower extremity. Patient denies any loss of bowel or bladder control or inability to walk. Patient states she has been dealing with this for the last several weeks. She has had steroid injections in her spine before. She denies any ongoing or recent headache, fever, neck pain, chest pain, shortness breath, abdominal pain, symptoms, GI symptoms, or any other signs or symptoms on ROS at this time.. Historical: - Allergies: 11:13 No Known Allergies; ll1 - PMHx: 11:13 Hypercholesterolemia; ll1 - PSHx: 11:13 tummy tuck; rotator cuff; ll1 - Immunization history:: Adult Immunizations up to date. - Infectious Disease History:: Denies. - Social history:: Smoking status: Patient denies any tobacco usage or history of. Smoking status: Reported history of juuling and/or vaping. ROS: 11:26 Constitutional: Negative for fever, chills, and weight loss, Eyes: Negative for injury, sp3 pain, redness, and discharge, Neck: Negative for injury, pain, and swelling, Cardiovascular: Negative for chest pain, palpitations, and edema, Respiratory: Negative for shortness of breath, cough, wheezing, and pleuritic chest pain, Abdomen/GI: Negative for abdominal pain, nausea, vomiting, diarrhea, and constipation, Back: Negative for injury and pain, Skin: Negative for injury, rash, and discoloration, Psych: Negative for depression, anxiety, suicide ideation, homicidal ideation, and hallucinations, Allergy/Immunology: Negative for hives, rash, and allergies, Endocrine: Negative for neck swelling, polydipsia, polyuria, polyphagia, and marked weight changes, 11:26 All other systems are negative, Exam: 11:26 Constitutional: This is a well developed, well nourished patient who is awake, alert, sp3 and in no acute distress. Head/Face: Normocephalic, atraumatic. Eyes: Pupils equal round and reactive to light, extra-ocular motions intact. Lids and lashes normal. Conjunctiva and sclera are non-icteric and not injected. Cornea within normal limits. Periorbital areas with no swelling, redness, or edema. Chest/axilla: Normal chest wall appearance and motion. Nontender with no deformity. No lesions are appreciated. Cardiovascular: Regular rate and rhythm with a normal S1 and S2. No gallops, murmurs, or rubs. Normal PMI, no JVD. No pulse deficits. Respiratory: Lungs have equal breath sounds bilaterally, clear to auscultation and percussion. No rales, rhonchi or wheezes noted. No increased work of breathing, no retractions or nasal flaring. Abdomen/GI: Soft, non-tender, with normal bowel sounds. No distension or tympany. No guarding or rebound. No evidence of tenderness throughout. Skin: Warm, dry with normal turgor. Normal color with no rashes, no lesions, and no evidence of cellulitis. Neuro: Awake and alert, GCS 15, oriented to person, place, time, and situation. Cranial nerves II-XII grossly intact. Motor strength 5/5 in all extremities. Sensory grossly intact. Cerebellar exam normal. Normal gait. Psych: Awake, alert, with orientation to person, place and time. Behavior, mood, and affect are within normal limits. 11:26 Musculoskeletal/extremity: Pain present on straight leg raise on the left side at 30 degrees. No saddle anesthesia or other deficits noted. Patient can ambulate.. Vital Signs: 11:14 BP 137 / 69; Pulse 73; Resp 17; Temp 98.5; Pulse Ox 99% ; Weight 74.84 kg; Height 5 ft. ll1 4 in. ; Pain 10; 11:14 Body Mass Index 28.32 (74.84 kg, 162.56 cm) ll1 11:14 Pain Scale: Adult ll1 MDM: 11:10 Medical Screening Exam initiated sp3 11:27 Data reviewed: vital signs, nurses notes. ED course: 64-year-old female with sciatica sp3 exacerbation. I have told her to make an appointment with her pain management clinic which she states she will do. Will administer ketorolac and Solu-Medrol IM and discharged on tramadol. Patient is okay with that plan and states she will follow back up with her pain clinic. Clinically I am not highly suspicious of cord compression, aortic pathology, sepsis, shock, CVA/TIA spectrum, or any other critical pathology at this time.. Administered Medications: 11:48 Drug: Ketorolac IM 30 mg IM once Route: IM; Site: right gluteus; ph 11:48 Follow up: Response: No adverse reaction ph 11:48 Drug: MethylPREDNISolone Sodium Succinate IM 125 mg IM once Route: IM; Site: right ph gluteus; 11:48 Follow up: Response: No adverse reaction ph Disposition Summary: 01/12/25 11:28 Discharge Ordered Notes: Location: Home sp3 Condition: Stable sp3 Diagnosis - Sciatica, low back pain, acute on chronic pain sp3 Followup: sp3 - With: Private Physician - When: Upon discharge from the Emergency Department - Reason: Continuance of care Discharge Instructions: - Discharge Summary Sheet sp3 - Sciatica sp3 Forms: - Medication Reconciliation Form sp3 - Antibiotic Education sp3 - Prescription Opioid Use sp3 - Patient Portal Instructions sp3 - Leadership Thank You Letter sp3 Prescriptions: - Tramadol 50 mg Oral Tablet - take 1 tablet ORAL route every 8 hours as needed; 12 tablet; Refills: 0, sp3 Product Selection Permitted - Medrol (Chin) 4 mg Oral Tablets, Dose Pack - take 1 tablet ORAL route as directed - follow package instructions; 1 packet; sp3 Refills: 0, Product Selection Permitted Signatures: Lilian Huerta RN RN ph Manav Marte RN RN ll1 Kaylah Resendez MD MD sp3 Corrections: (The following items were deleted from the chart) 11: 11:08 Allergies: Robitussin Cough \T\ Cold CF; ll1 ll1 : 11:08 Allergies: hazelnut; ll1 ll1 11: 11:08 Allergies: [place]; ll1 ll1 11:08 PMHx: Hypercholesterolemia; ll1 ll1 11:08 PSHx: Tummy tuck; ll1 ll1 11:28 11:27 ED course: 64-year-old female with sciatica exacerbation. I have told her to make sp3 an appointment with her pain management clinic which she states she will do. Will administer ketorolac and Solu-Medrol IM and discharged on tramadol. Patient is okay with that plan and states she will follow back up with her pain clinic.. sp3
--- NOTE | 2025-01-12 11:29 | ER ---
Nurse's Notes [facility] Name: Dave Luque Age: 64 yrs Sex: Female : 1960 Arrival Date: 01/12/2025 Time: 11:00 Bed 16 Private MD: Diagnosis: Sciatica, low back pain, acute on chronic pain Presentation: 01/12 11:14 Coronavirus screen: Client denies travel out of the [place] in the last 14 days. At this ll1 time, the client does not indicate any symptoms associated with coronavirus-19. Ebola Screen: Patient denies travel to an Ebola-affected area in the 21 days before illness onset. 11:14 Method Of Arrival: Ambulatory ll1 11:14 Chief complaint: Patient states: Lower back pain that radiates into L leg for 1 week. ll1 Initial Sepsis Screen: Does the patient meet any 2 criteria? No. Patient's initial sepsis screen is negative. Does the patient have a suspected source of infection? No. Patient's initial sepsis screen is negative. Risk Assessment: Do you want to hurt yourself or someone else? Patient reports no desire to harm self or others. Onset of symptoms was January 05, 2025. 11:14 Acuity: EMERSON 4 ll1 Historical: - Allergies: 11:13 No Known Allergies; ll1 - PMHx: 11:13 Hypercholesterolemia; ll1 - PSHx: 11:13 tummy tuck; rotator cuff; ll1 - Immunization history:: Adult Immunizations up to date. - Infectious Disease History:: Denies. - Social history:: Smoking status: Patient denies any tobacco usage or history of. Smoking status: Reported history of juuling and/or vaping. Screenin:15 Abuse screen: Denies threats or abuse. Denies injuries from another. Nutritional ph screening: No deficits noted. Tuberculosis screening: No symptoms or risk factors identified. 11:18 [facility] ED Fall Risk Assessment (Adult) History of falling in the last 3 months, ph including since admission No falls in past 3 months (0 pts) Confusion or Disorientation No (0 pts) Intoxicated or Sedated No (0 pts) Impaired Gait No (0 pts) Mobility Assist Device Used No (0 pt) Altered Elimination No (0 pt) Score/Fall Risk Level 0 - 2 = Low Risk Oriented to surroundings, Maintained a safe environment, Hourly rounding (assess needs \T\ fall precautionary measures) done. Assessment: 11:19 General: Appears in no apparent distress. uncomfortable, Behavior is calm, cooperative, ph appropriate for age. Pain: Complains of pain in left low back Pain radiates to left leg. Neuro: Level of Consciousness is awake, alert, obeys commands, Oriented to person, place, time, situation. Cardiovascular: Capillary refill < 3 seconds in bilateral fingers Patient's skin is warm and dry. Respiratory: Airway is patent Respiratory effort is even, unlabored. Derm: Skin is pink, warm \T\ dry. Vital Signs: 11:14 BP 137 / 69; Pulse 73; Resp 17; Temp 98.5; Pulse Ox 99% ; Weight 74.84 kg; Height 5 ft. ll1 4 in. ; Pain 10/10; 11:14 Body Mass Index 28.32 (74.84 kg, 162.56 cm) ll1 11:14 Pain Scale: Adult ll1 ED Course: 11:02 Patient arrived in ED. im 11:04 Kaylah Resendez MD is Attending Physician. sp3 11:08 Arm band placed on Patient placed in an exam room, on a stretcher. ll1 11:10 Triage completed. ll1 11:15 Lilian Huerta, RN is Primary Nurse. ph 11:19 Patient has correct armband on for positive identification. Bed in low position. Call ph light in reach. Side rails up X 1. Pulse ox on. NIBP on. 11:48 No provider procedures requiring assistance completed. Patient did not have IV access ph during this emergency room visit. Administered Medications: 11:48 Drug: Ketorolac IM 30 mg IM once Route: IM; Site: right gluteus; ph 11:48 Follow up: Response: No adverse reaction ph 11:48 Drug: MethylPREDNISolone Sodium Succinate IM 125 mg IM once Route: IM; Site: right ph gluteus; 11:48 Follow up: Response: No adverse reaction ph Medication: 11:16 VIS not applicable for this client. ph Outcome: 11:28 Discharge ordered by . sp3 11:48 Discharged to home ambulatory, with family, ph 11:48 Condition: good 11:48 Discharge instructions given to patient, Instructed on discharge instructions, follow up and referral plans. medication usage, Demonstrated understanding of instructions, follow-up care, medications, Prescriptions given X 2, 11:49 Patient left the ED. ph Signatures: Lilian Huerta RN RN ph Manav Marte RN RN [facility] Kaylah Resendez MD MD sp3 Liz Acevedo Corrections: (The following items were deleted from the chart) 11:09 Chief complaint: Patient states: Went to [facility] and blood work [facility] done. Sent in for further testing [facility] : 11: Coronavirus screen: Client denies travel out of the [place] in the last 14 days. At [facility] this time, the client does not indicate any symptoms associated with coronavirus-19. [facility] : 11:09 Ebola Screen: Patient denies travel to an Ebola-affected area in the 21 days [facility] before illness onset. [facility] 11: 11:09 Initial Sepsis Screen: Does the patient meet any 2 criteria? No. Patient's [facility] initial sepsis screen is negative. Does the patient have a suspected source of infection? No. Patient's initial sepsis screen is negative. [facility] : 11:09 Risk Assessment: Do you want to hurt yourself or someone else? Patient reports no [facility] desire to harm self or others. [facility] : 11:09 Onset of symptoms was January 12, 2025 [place] [id number] 11:09 Method Of Arrival: Ambulatory [place] [id number] : 11:09 BP 131 / 81; Pulse 89bpm; Resp 17bpm; Pulse Ox 100%; Temp 98.6F; 94.35 kg; Height [facility] 5 ft. 6 in.; BMI: 33.5; [facility] 11:09 Acuity: EMERSON 3 [place] [id number] 11:08 Allergies: Robitussin Cough \T\ Cold CF; [place] [address] 11:08 Allergies: hazelnut; [place] [address] 11:08 Allergies: Leon[place]; [place] [address] 11:08 PMHx: Hypercholesterolemia; [place] [address] 11:08 PSHx: Tummy tuck; [place] [address] 11:18 11:14 BP 137 / 69; Pulse 73bpm; Resp 17bpm; Pulse Ox 99%; 74.84 kg; Height 5 ft. 4 in.; ll1 BMI: 28.3; Pain 10/10, Adult; ll1
[2025-01-12] MEDS ORDERED: KETOROLAC 30 MG/ML INJ ONE (11:32)
[2025-01-12] MEDS ORDERED: METHYLPREDNISOLONE 125 MG INJ ONE (11:32)
[2025-01-12 11:54] VITALS: BP 137/69; TEMP 98.5; O2SAT 99
== END 2025-01-12 11:49 | disposition home or self-care (01) ==
LOC: ER 11:00
DX: M54.32 Sciatica, left side (principal)
CPT/HCPCS: 96372; 99284; J2919

== ENCOUNTER 2025-07-30 06:56 | Emergency (ER) | payer MEDICAID ==
[2025-07-30] MEDS ORDERED: KETOROLAC 30 MG/ML INJ ONE (07:56)
[2025-07-30] MEDS ORDERED: ONDANSETRON 4 MG/2 ML VIAL ONE (07:56)
[2025-07-30] MEDS ORDERED: NA CHLORIDE 0.9% 1,000 ML ONE (07:57)
[2025-07-30] MEDS ORDERED: MORPHINE 4 MG/ML SYR ONE (07:57)
[2025-07-30 08:01] LABS: Absolute Lymphocytes (CBC) 0.8 K/uL (0.7-4.9); Hematocrit 36.4 % (36.0-45.0); Hemoglobin 12.2 g/dL (12.0-15.0); MCH 30.7 pg (27.0-35.0); MCHC 33.5 g/dL (32.0-36.0); MCV 91.7 fL (80-100); MPV 8.3 fL (7.6-11.3); Nucleated RBC Absolute Count 0.0 (0-0); Nucleated Red Blood Cells % 0.0 % (0-0); RBC Red Blood Cell Count 3.97 M/uL (3.86-4.86); White Blood Count 12.90 thou/uL (4.3-10.9)
[2025-07-30] MEDS ORDERED: DIAZEPAM 5 MG TABLET ONE (08:23)
[2025-07-30 08:48] LABS: ALT/SGPT 36.0 U/L (13-56); AST/SGOT 23.0 U/L (15-37); Albumin 3.1 g/dL (3.4-5.0); Albumin/Globulin Ratio 0.9 (1.1-1.8); Alkaline Phosphatase 73.0 U/L (45-117); Anion Gap 8.8 mEq/L (5.0-15.0); BUN Blood Urea Nitrogen 17.0 mg/dL (7-18); Globulin 3.4 g/dL (2.3-3.5); Glucose Level 90.0 mg/dL (74-106); Potassium 3.8 mEq/L (3.5-5.1)
[2025-07-30 08:53] LABS: Blood Morphology Comment NOT SEEN (NOT SEEN); White Blood Cell Scan OK (OK)
[2025-07-30 08:56] LABS: Sqamous Epithelial <5 /HPF (None Seen); Urine Culture Reflex Order REFLEXED; Urine Microscopic Reflex YN ORDER UMIC; Urine Yeast (Budding) Trace /HPF (None Seen)
--- NOTE | 2025-07-30 08:58 | RAD REPORT ---
EXAMINATION: CT LUMBAR SPINE WITHOUT CONTRAST CLINICAL INDICATION: Radiculopathy TECHNIQUE: Axial CT images were obtained through the lumbar spine in soft tissue and bone windows wit hout intravenous contrast. Coronal and Sagittal reformatted images were created from the data set. One or more of the following dose reduction techniques were used: Automated exposure control, adjustm ent of the mA and/ or kV according to patient size, and/or iterative reconstruction. Unless otherwise specified, incidental findings do not require dedicated imaging follow-up. COMPARISON: February 2025 MRI FINDINGS: For purposes of this dictation, it is assumed that there are 5 non rib-bearing lumbar type vertebrae, and the most caudal fully segmented lumbar vertebra is labeled L5. No fracture seen No dislocation. L1-2 and L2-3 unremarkable Disc bulge, ligamentum flavum and facet hypertrophy L3-4. Thecal sac 9 mm. Minimal narrowing of neura l foramina bilaterally Sclerosis involves the vertebral endplates of L4 and L5 with disc space narrowing and vacuum phenomen a. Subchondral cysts are present. Mild to moderate anterior subluxation L4 on L5.. Thecal sac 5 mm. Marked narrowing of the neural foramina bilaterally L5-S1 disc is narrowed. Vacuum phenomena. Sclerosis involves the vertebral endplates. Disc bulge with facet hypertrophy. Moderate narrowing of the neural foramina bilaterally. IMPRESSION: No fracture visualized Spondylosis most marked L4-5 resulting in marked central spinal stenosis
--- NOTE | 2025-07-30 09:00 | ER ---
Nurse's Notes [facility] Name: Dave Luque Age: 65 yrs Sex: Female : 1960 Arrival Date: 07/30/2025 Time: 06:56 Bed 13 Private MD: Diagnosis: Sciatica;Intervertebral disc disorders with radiculopathy, lumbar region;Spondylolysis, lumbar region;Spinal stenosis, lumbar region without neurogenic claudication Presentation: 07/30 07:11 Chief complaint: Patient states: Last night bent over to pick something up off of ph carpet and had sudden onset lower back pain radiating down both legs, hx od sciatica, took Tylenol this morning. Coronavirus screen: At this time, the client does not indicate any symptoms associated with coronavirus-19. Ebola Screen: No symptoms or risks identified at this time. Initial Sepsis Screen: Does the patient meet any 2 criteria? No. Patient's initial sepsis screen is negative. Does the patient have a suspected source of infection? No. Patient's initial sepsis screen is negative. Risk Assessment: Do you want to hurt yourself or someone else? Patient reports no desire to harm self or others. Onset of symptoms was July 30, 2025. 07:11 Method Of Arrival: Wheelchair 07:11 Acuity: EMERSON 3 ph Triage Assessment: 07:00 General: Appears in no apparent distress. uncomfortable, Behavior is cooperative, ph restless. 07:00 Pain: Complains of pain in lumbar area, left low back and right low back Pain radiates ph to right leg and left leg Pain currently is 8 out of 10 on a pain scale. Quality of pain is described as shooting, Pain began 1 day ago. EENT: No signs and/or symptoms were reported regarding the EENT system. Neuro: Level of Consciousness is awake, alert, obeys commands, Oriented to person, place, time, situation. Cardiovascular: Patient's skin is warm and dry. Respiratory: Airway is patent Respiratory effort is even, unlabored, Respiratory pattern is regular, symmetrical. GI: No signs and/or symptoms were reported involving the gastrointestinal system. : No signs and/or symptoms were reported regarding the genitourinary system. Derm: No signs and/or symptoms reported regarding the dermatologic system. Historical: - Allergies: 07:03 No Known Allergies; ll1 - PMHx: 07:03 Hypercholesterolemia; ll1 - PSHx: 07:03 rotator cuff; Tummy tuck; ll1 - Immunization history:: Adult Immunizations up to date. - Infectious Disease History:: Denies. - Social history:: Smoking status: Reported history of juuling and/or vaping. - Family history:: not pertinent. Screenin:00 [facility] ED Fall Risk Assessment (Adult) History of falling in the last 3 months, cc6 including since admission No falls in past 3 months (0 pts) Confusion or Disorientation No (0 pts) Intoxicated or Sedated No (0 pts) Impaired Gait No (0 pts) Mobility Assist Device Used Yes (1 pt) Altered Elimination No (0 pt) Score/Fall Risk Level 0 - 2 = Low Risk Oriented to surroundings, Maintained a safe environment, Educated pt \T\ family on fall prevention, incl call for assistance when getting out of bed. Abuse screen: Denies threats or abuse. Denies injuries from another. Nutritional screening: No deficits noted. Tuberculosis screening: No symptoms or risk factors identified. Assessment: 07:00 Reassessment: SEE TRIAGE. ph 08:30 Reassessment: Patient and/or family updated on plan of care and expected duration. Pain cc6 level reassessed. Patient is alert, oriented x 3, equal unlabored respirations, skin warm/dry/pink. Vital Signs: 07:11 BP 123 / 72; Pulse 83; Resp 18; Temp 97.8; Pulse Ox 98% on R/A; Weight 72.57 kg; Height ph 5 ft. 4 in. ; 08:30 BP 115 / 59; Pulse 85; Resp 18; Pulse Ox 95% on R/A; Pain 4/10; cc6 07:11 Body Mass Index 27.46 (72.57 kg, 162.56 cm) ph 08:30 Pain Scale: Adult cc6 ED Course: 06:59 Patient arrived in ED. gm2 07:00 Provided Education on: USE OF CALL LIGHT. cc6 07:00 Patient has correct armband on for positive identification. cc6 07:03 Arm band placed on Patient placed in an exam room, on a stretcher. ll1 07:11 Lilian Huerta RN is Primary Nurse. ph 07:13 Triage completed. ph 07:17 Corey Evans MD is Attending Physician. shreya 08:10 Inserted saline lock: 24 gauge in right upper arm, using aseptic technique. Flushed ap3 with 10 mL NS. 08:24 CT Lumbar Spine Wo Con In Process Unspecified. EDMO 08:59 Raza Coto MD is Referral Physician. [facility] 09:11 No provider procedures requiring assistance completed. IV discontinued, intact, cc6 bleeding controlled, No redness/swelling at site. Pressure dressing applied. Administered Medications: 08:18 Drug: NS 0.9% IV 1000 ml IV at 1000 ml once; to be given as a bolus over 60 minutes cc6 Route: IV; Rate: 1000 ml; Site: right upper arm; 09:13 Follow up: IV Status: Completed infusion cc6 08:19 Drug: Ketorolac IVP 30 mg IVP once Route: IVP; Site: right upper arm; cc6 08:48 Follow up: Response: No adverse reaction; Pain is decreased cc6 08:19 Drug: morphine IVP or IV 4 mg IVP once over 4 mins Route: IVP; Infused Over: 4 mins; cc6 Site: right upper arm; 08:48 Follow up: Response: No adverse reaction; Pain is decreased; RASS: Alert and Calm (0) cc6 08:19 Drug: Ondansetron IVP 8 mg IVP once; over 2 minutes Route: IVP; Site: right upper arm; cc6 08:48 Follow up: Response: No adverse reaction cc6 08:20 Drug: Decadron - Dexamethasone IVP 10 mg IVP once Route: IVP; Site: right upper arm; cc6 08:48 Follow up: Response: No adverse reaction cc6 08:30 Drug: Diazepam PO 10 mg PO once Route: PO; cc6 08:48 Follow up: Response: No adverse reaction cc6 Medication: 09:12 VIS not applicable for this client. cc6 Outcome: 09:00 Discharge ordered by . [facility] 09:11 Discharged to home ambulatory, with friend, cc6 09:11 Condition: stable 09:11 Discharge instructions given to patient, Instructed on discharge instructions, follow up and referral plans. medication usage, Demonstrated understanding of instructions, follow-up care, medications, 09:17 Patient left the ED. cc6 Signatures: Dispatcher [employer] EDMO Corey Evans MD MD cha Hall, Patricia, RN RN Jael Cooper RN RN ap3 Manav Marte, RN RN ll1 Dorcas Emmanuel gm2 Nicole Burks, RN RN cc6
--- NOTE | 2025-07-30 09:00 | EDPHYS ---
Physician Documentation [facility] Name: Dave Luque Age: 65 yrs Sex: Female : 1960 Arrival Date: 07/30/2025 Time: 06:56 Bed 13 Private MD: JOHNY Physician Corey Evans HPI: 07/30 08:17 This 65 yrs old Female presents to ER via Wheelchair with complaints of Low shreya Back Pain, Leg Pain. 08:17 The patient presents with pain that is acute, with no known mechanism of injury, that shreya is chronic. The symptoms are located in the low back, lumbar area, left low back and right low back. The pain radiates to the left low back and right low back. The problem was sustained when bending over, from a chronic condition, degenerative joint disease, the patient has known disc disease. Onset: The symptoms/episode began/occurred 5 day(s) ago. Modifying factors: The patient symptoms are alleviated by remaining still, the patient symptoms are aggravated by any movement, bending, movement. Associated signs and symptoms: Pertinent positives: none. Severity of symptoms: At their worst the symptoms were moderate, in the emergency department the symptoms are unchanged. The patient has experienced similar episodes in the past, multiple times. Historical: - Allergies: 07:03 No Known Allergies; ll1 - PMHx: 07:03 Hypercholesterolemia; ll1 - PSHx: 07:03 rotator cuff; Tummy tuck; ll1 - Immunization history:: Adult Immunizations up to date. - Infectious Disease History:: Denies. - Social history:: Smoking status: Reported history of juuling and/or vaping. - Family history:: not pertinent. ROS: 08:17 Constitutional: Negative for fever, chills, and weight loss, Eyes: Negative for injury, shreya pain, redness, and discharge, ENT: Negative for injury, pain, and discharge, Neck: Negative for injury, pain, and swelling, Cardiovascular: Negative for chest pain, palpitations, and edema, Respiratory: Negative for shortness of breath, cough, wheezing, and pleuritic chest pain, Abdomen/GI: Negative for abdominal pain, nausea, vomiting, diarrhea, and constipation, : Negative for injury, bleeding, discharge, and swelling, MS/Extremity: Negative for injury and deformity, Skin: Negative for injury, rash, and discoloration, Neuro: Negative for headache, weakness, numbness, tingling, and seizure, Psych: Negative for depression, anxiety, suicide ideation, homicidal ideation, and hallucinations, Allergy/Immunology: Negative for hives, rash, and allergies, Endocrine: Negative for neck swelling, polydipsia, polyuria, polyphagia, and marked weight changes, Hematologic/Lymphatic: Negative for swollen nodes, abnormal bleeding, and unusual bruising, 08:17 Back: Positive for injury or acute deformity, decreased range of motion, pain at rest, pain with movement, radiated pain, of the lumbar area, left low back and right low back, 09:11 : Negative for urinary symptoms, urinary frequency, small amounts, hematuria, pelvic shreya pain, flank pain, burning with urination, difficulty urinating, bladder incontinence, foul smelling urine, Exam: 08:17 Constitutional: This is a well developed, well nourished patient who is awake, alert, shreya and in no acute distress. Head/Face: Normocephalic, atraumatic. Eyes: Pupils equal round and reactive to light, extra-ocular motions intact. Lids and lashes normal. Conjunctiva and sclera are non-icteric and not injected. Cornea within normal limits. Periorbital areas with no swelling, redness, or edema. ENT: Nares patent. No nasal discharge, no septal abnormalities noted. Tympanic membranes are normal and external auditory canals are clear. Oropharynx with no redness, swelling, or masses, exudates, or evidence of obstruction, uvula midline. Mucous membranes moist. Neck: Trachea midline, no thyromegaly or masses palpated, and no cervical lymphadenopathy. Supple, full range of motion without nuchal rigidity, or vertebral point tenderness. No Meningismus. Chest/axilla: Normal chest wall appearance and motion. Nontender with no deformity. No lesions are appreciated. Cardiovascular: Regular rate and rhythm with a normal S1 and S2. No gallops, murmurs, or rubs. Normal PMI, no JVD. No pulse deficits. Respiratory: Lungs have equal breath sounds bilaterally, clear to auscultation and percussion. No rales, rhonchi or wheezes noted. No increased work of breathing, no retractions or nasal flaring. Abdomen/GI: Soft, non-tender, with normal bowel sounds. No distension or tympany. No guarding or rebound. No evidence of tenderness throughout. Skin: Warm, dry with normal turgor. Normal color with no rashes, no lesions, and no evidence of cellulitis. MS/ Extremity: Pulses equal, no cyanosis. Neurovascular intact. Full, normal range of motion., bilateral aka Neuro: Awake and alert, GCS 15, oriented to person, place, time, and situation. Cranial nerves II-XII grossly intact. Motor strength 5/5 in all extremities. Sensory grossly intact. Cerebellar exam normal. Normal gait. Psych: Awake, alert, with orientation to person, place and time. Behavior, mood, and affect are within normal limits. 08:17 Back: pain, that is moderate, ROM is painful, with flexion, with extension, normal spinal alignment noted, CVA tenderness, is absent, vertebral tenderness, is not appreciated, muscle spasm, is appreciated in the left low back, left mid back, right mid back and right low back, Vital Signs: 07:11 BP 123 / 72; Pulse 83; Resp 18; Temp 97.8; Pulse Ox 98% on R/A; Weight 72.57 kg; Height ph 5 ft. 4 in. ; 08:30 BP 115 / 59; Pulse 85; Resp 18; Pulse Ox 95% on R/A; Pain 4/10; cc6 07:11 Body Mass Index 27.46 (72.57 kg, 162.56 cm) ph 08:30 Pain Scale: Adult cc6 MDM: 07:17 Medical Screening Exam initiated shreya 08:21 Differential diagnosis: arthritis, strain, fracture, sciatica, contusion, Herniated shreya disc UTI. Data reviewed: vital signs, nurses notes, lab test result(s), radiologic studies, CT scan. Consideration of Admission/Observation Escalation of care including admission/observation considered. I considered the following discharge prescriptions or medication management in the emergency department Medications were administered in the Emergency Department. See MAR. Test considered but Not performed: MRI: no mri lumbar. Historians other than the Patient: Family Member: family , sister , well informed. Care significantly affected by the following chronic conditions: sciatica, high chlesterol. 07/30 07:37 Order name: CBC with Diff; Complete Time: 08:57 [facility] 07/30 07:37 Order name: CMP; Complete Time: 08:57 [facility] 07/30 07:37 Order name: UA Rfx Stefano Cult if indicated shreya 07/30 08:05 Order name: CBC Smear Scan; Complete Time: 08:57 EDMS 07/30 09:17 Order name: Urine Culture EDMS 07/30 07:37 Order name: CT Lumbar Spine Wo Con; Complete Time: 08:59 shreya Administered Medications: 08:18 Drug: NS 0.9% IV 1000 ml IV at 1000 ml once; to be given as a bolus over 60 minutes cc6 Route: IV; Rate: 1000 ml; Site: right upper arm; 09:13 Follow up: IV Status: Completed infusion cc6 08:19 Drug: Ketorolac IVP 30 mg IVP once Route: IVP; Site: right upper arm; cc6 08:48 Follow up: Response: No adverse reaction; Pain is decreased cc6 08:19 Drug: morphine IVP or IV 4 mg IVP once over 4 mins Route: IVP; Infused Over: 4 mins; cc6 Site: right upper arm; 08:48 Follow up: Response: No adverse reaction; Pain is decreased; RASS: Alert and Calm (0) cc6 08:19 Drug: Ondansetron IVP 8 mg IVP once; over 2 minutes Route: IVP; Site: right upper arm; cc6 08:48 Follow up: Response: No adverse reaction cc6 08:20 Drug: Decadron - Dexamethasone IVP 10 mg IVP once Route: IVP; Site: right upper arm; cc6 08:48 Follow up: Response: No adverse reaction cc6 08:30 Drug: Diazepam PO 10 mg PO once Route: PO; cc6 08:48 Follow up: Response: No adverse reaction cc6 Disposition Summary: 07/30/25 09:00 Discharge Ordered Notes: Location: Home shreya Problem: new shreya Symptoms: have improved shreya Condition: Stable shreya Diagnosis - Sciatica shreya - Intervertebral disc disorders with radiculopathy, lumbar region shreya - Spondylolysis, lumbar region shreya - Spinal stenosis, lumbar region without neurogenic claudication shreya Followup: shreya - With: Private Physician - When: 2 - 3 days - Reason: Recheck today's complaints, Continuance of care, Re-evaluation by your physician Followup: shreya - With: Raza Coto MD - When: 2 - 3 days - Reason: Recheck today's complaints, Re-evaluation by your physician Discharge Instructions: - Discharge Summary Sheet shreya - Herniated Disk shreya - Lumbosacral Radiculopathy shreya - Spinal Stenosis shreya - Degenerative Disk Disease shreya - Herniated Disk, [id number] shreya - Radicular Pain shreya - Spondylolysis shreya - Spinal Stenosis, [id number] [facility] Forms: - Medication Reconciliation Form shreya - Antibiotic Education shreya - Prescription Opioid Use shreya - Patient Portal Instructions [facility] - Leadership Thank You Letter [facility] Prescriptions: - Diclofenac Sodium 75 mg Oral tablet, delayed release (enteric coated) - take 1 tablet ORAL route 2 times per day; 20 tablet; Refills: 0, Product shreya Selection Permitted - methocarbamol 750 mg Oral tablet - take 1 tablet ORAL route 4 times per day; 36 tablet; Refills: 0, Product [facility] Selection Permitted - Tylenol-Codeine #3 300mg-30mg Oral tablet - take 2 tablets ORAL route every 6 hours As needed; 20 tablet; Refills: 0, [facility] Product Selection Permitted - Dexamethasone 4mg Oral tablet - take 1 tablet ORAL route daily for 4 days; 4 tablet; Refills: 0, Product shreya Selection Permitted Signatures: Dispatcher [employer] Corey Williamson MD MD cha Hall, Patricia, RN RN Manav Daniel RN RN ll1 Nicole Burks RN RN cc6
[2025-07-30 09:34] VITALS: TEMP 97.8
[2025-07-30 09:40] VITALS: BP 115/59; O2SAT 95
== END 2025-07-30 09:17 | disposition home or self-care (01) ==
LOC: ER 06:56
DX: M54.32 Sciatica, left side (principal); M54.31 Sciatica, right side; M43.06 Spondylolysis, lumbar region; M48.061 Spinal stenosis, lumbar region without neurogenic claudication
CPT/HCPCS: 96361; 87088; 85025; 81001; 87086; 36415; 87077; 87186; 80053; 72131; 96375; 96374; 99284; J1885; J1100; J2405; J7030

== ENCOUNTER 2025-08-02 14:02 | Inpatient (IN) | payer MEDICAID ==
[2025-08-02] MEDS ORDERED: NA CHLORIDE 0.9% 2,000 ML ONE (14:17)
[2025-08-02] MEDS ORDERED: DIGOXIN 0.25 MG/ML AMP ONE (14:18)
[2025-08-02] MEDS ORDERED: NALOXONE HCL 2 MG/2 ML VIAL ONE (14:36)
[2025-08-02 15:08] LABS: Absolute Lymphocytes (CBC) 0.1 K/uL (0.7-4.9); Hematocrit 40.2 % (36.0-45.0); Hemoglobin 13.2 g/dL (12.0-15.0); MCH 30.2 pg (27.0-35.0); MCHC 32.8 g/dL (32.0-36.0); MCV 91.9 fL (80-100); MPV 9.9 fL (7.6-11.3); Nucleated RBC Absolute Count 0.0 (0-0); Nucleated Red Blood Cells % 0.8 % (0-0); RBC Red Blood Cell Count 4.37 M/uL (3.86-4.86); White Blood Count 2.70 thou/uL (4.3-10.9)
[2025-08-02 15:10] LABS: Sqamous Epithelial <5 /HPF (None Seen); Urine Crystals Unidentified Few /HPF (None Seen); Urine Culture Reflex Order REFLEXED; Urine Microscopic Reflex YN ORDER UMIC; Urine WBC Clump Few /HPF (None Seen)
[2025-08-02 15:22] LABS: METHAMPHETAM NEGATIVE (NEGATIVE); THC Cannibis NEGATIVE (NEGATIVE)
[2025-08-02 15:26] LABS: PT Prothrombin Time 13.6 SECONDS (10-13.0); Protime INR 1.21
[2025-08-02 15:31] LABS: ALT/SGPT 309 U/L (13-56); AST/SGOT 405 U/L (15-37); Albumin 2.2 g/dL (3.4-5.0); Albumin/Globulin Ratio 0.5 (1.1-1.8); Alkaline Phosphatase 263 U/L (45-117); Anion Gap 16.7 mEq/L (5.0-15.0); BUN Blood Urea Nitrogen 42 mg/dL (7-18); Bilirubin Indirect, Calculated 0.5 mg/dL (0.2-0.8); Globulin 4.7 g/dL (2.3-3.5); Glucose Level 102 mg/dL (74-106); Magnesium 2.4 mg/dL (1.6-2.4); NT PRO-BNP 20442 pg/mL (<125); Potassium 4.7 mEq/L (3.5-5.1); Troponin High Sensitivity 42.5 pg/mL (<58.9)
[2025-08-02] MEDS ORDERED: CEFTRIAXONE 1000 MG/VIAL ONE (15:58)
[2025-08-02] MEDS ORDERED: NA CHLORIDE 0.9% 500 ML ONE ×2 (15:58→21:09)
--- NOTE | 2025-08-02 16:36 | RAD REPORT ---
EXAMINATION: ONE VIEW CHEST XR CLINICAL INDICATION: Female, 65 years old.,CHEST PAIN TECHNIQUE: Frontal chest projection is submitted. Examination is limited by patient positioning and t echnique. COMPARISON: 08/29/2022 FINDINGS: The lungs are well inflated and clear. No pneumothorax or sizable effusion. The heart is normal in s ize. Mediastinal contours are unremarkable. IMPRESSION: No acute intrathoracic abnormalities.
--- NOTE | 2025-08-02 16:47 | RAD REPORT ---
EXAM: CT CHEST, ABDOMEN AND PELVIS WITHOUT CONTRAST CLINICAL INDICATION: Female, 65 years old. [facility] MAIN TRAUMA Bed Name: 4 TECHNIQUE: CT chest, abdomen and pelvis was performed, without IV contrast, as per department protoco l. Axial, sagittal and coronal reconstructions were obtained. One or more of the following dose reduction techniques were used: Automated exposure control, adjustment of the mA and/or kV according to the patient size, and/or iterative reconstruction. Unless otherwise specified, incidental findings do not require dedicated imaging follow-up. COMPARISON: 02/06/2024 FINDINGS: The lack of intravenous contrast limits the sensitivity of this exam for evaluation of solid visceral organs, vascular structures, and retroperitoneum. Motion artifact also somewhat limits evaluation particularly in the chest. Chest: LOWER NECK/CHEST WALL: Visualized thyroid gland and soft tissues are normal. LUNGS AND AIRWAYS: Airways are clear. Patchy subpleural airspace opacities, predominantly in the righ t middle lobe anteriorly, could reflect atelectasis, sequelae of mild aspiration, less likely pulmonary contusions. Small elongated nodular right upper lobe peripheral airspace opacity measuring 8 mm, possibly of similar etiology.. PLEURA: No pleural effusion. No pneumothorax. Hemidiaphragms are normally positioned. MEDIASTINUM AND LYMPH NODES: No mediastinal mass or fluid collection. Normal size mediastinal, hilar, and axillary lymph nodes. THORACIC AORTA: Normal caliber and configuration. PULMONARY ARTERIES: Normal caliber. HEART: Unremarkable. Abdomen/Pelvis LIVER: Normal in size and contour. No focal lesion. GALLBLADDER/BILE DUCTS: No biliary ductal dilatation. PANCREAS: No mass, ductal dilation, or shawn-pancreatic fluid. SPLEEN: Normal size. No focal lesion. ADRENALS: Normal; no mass. KIDNEYS AND URETERS: Normal size and contour. No hydronephrosis. GASTROINTESTINAL TRACT: Stomach is non-dilated. Small bowel has normal course and caliber. No colonic wall thickening or pericolonic inflammatory changes. PERITONEUM: No free fluid. LYMPH NODES: No lymphadenopathy. ABDOMINAL AORTA AND OTHER VESSELS: Normal caliber aorta and IVC. URINARY BLADDER: Decompressed with Schmitz catheter in place.. REPRODUCTIVE ORGANS: No pathologic process. MUSCULOSKELETAL: No acute or suspicious osseous abnormality. ADDITIONAL FINDINGS: None IMPRESSION: Nonspecific small subpleural right lung airspace opacities with differential considerations as above. Another 8mm anterior right upper lobe nodular opacity, possibly of similar etiologies. No other acute traumatic findings. Motion artifact somewhat limits evaluation.
--- NOTE | 2025-08-02 16:56 | RAD REPORT ---
EXAM: CT brain without contrast HISTORY: ams COMPARISON: None TECHNIQUE: Multiple contiguous axial images were obtained and a CT of the brain without contrast. Sag ittal and coronal reformats were performed. FINDINGS: No evidence of hydrocephalus, intracranial hemorrhage, or extra-axial fluid collection. The brain is normal in morphology. The calvarium is intact. The visualized paranasal sinuses and mastoid air cells are essentially clear . IMPRESSION: No evidence of acute intracranial abnormality. EXAM: CT of the cervical spine without contrast HISTORY: ams COMPARISON: None TECHNIQUE: Multiple contiguous axial images were obtained in a CT of the cervical spine without contr ast. Sagittal and coronal reformats were performed. FINDINGS: The vertebral bodies demonstrate normal height and alignment. No evidence of acute fracture or subluxation.. Mild to moderate multilevel degenerative changes are present, contributing to moderate degrees of neural foraminal narrowing bilaterally at C6-7 and to lesser degree at C5-6. No prevertebral soft tissue swelling is seen. The posterior facets are well aligned. Normal alignment of the skull base with the cervical spine is seen. The lung apices are unremarkable. IMPRESSION: No evidence of acute osseous abnormality of the cervical spine. Multilevel degenerative changes as ab ove.
[2025-08-02] MEDS ORDERED: NA CHLORIDE 0.9% 100 ML ONE (17:15)
[2025-08-02] MEDS ORDERED: PIPERACIL/TAZO 3.375 GM VIAL IV ONE (17:15)
--- NOTE | 2025-08-02 17:17 | EDPHYS ---
Physician Documentation [facility] Name: Dave Luque Age: 65 yrs Sex: Female : 1960 Arrival Date: 08/02/2025 Time: 14:02 Bed 4 Private MD: ED Physician Corey Evans HPI: 08/02 14:54 This 65 yrs old Female presents to ER via Unassigned with complaints of Blood Pressure sb4 Problem. 14:54 Patient initially called EMS with complaints of low back pain and left leg pain. Upon sb4 arrival, she was found to be tachycardic, hypotensive, and diaphoretic. They bolused her with fluid and gave her 5 mg of IV metoprolol. Upon arrival, noted to be hypotensive and A-fib RVR, but EMS states that her heart rate has improved from 200s+. Patient is lethargic but arousable, oriented x 4. Does admit to taking hydrocodone for her chronic back pain. Denies any history of A-fib. Per chart review, was seen here few days ago for her back pain. Historical: - Allergies: 14:15 No Known Allergies; aa5 - PMHx: 14:15 Hypercholesterolemia; aa5 - PSHx: 14:15 rotator cuff; Tummy tuck; aa5 - Immunization history:: Adult Immunizations up to date. - Infectious Disease History:: Denies. - Social history:: Smoking status: unknown. ROS: 14:54 Constitutional: Negative for fever, chills, and weight loss, sb4 14:54 Back: Positive for pain at rest, 14:54 MS/extremity: Positive for pain, of the left leg, 14:54 All other systems are negative, Exam: 14:56 Head/Face: Normocephalic, atraumatic. Eyes: Extra-ocular motions intact. Periorbital sb4 areas with no swelling, redness, or edema. Respiratory: No increased work of breathing, no retractions or nasal flaring. Abdomen/GI: Soft, non-tender, no distension. 14:56 Constitutional: The patient appears diaphoretic, lethargic, pale, 14:56 Cardiovascular: Rate: tachycardic, Rhythm: irregularly irregular, 14:56 Skin: Appearance: Moisture: diaphoretic, Vital Signs: 14:13 BP 90 / 54; Pulse 166; Resp 12; Temp 97.7; Pulse Ox 99% on R/A; Weight 82.55 kg; kb4 14:15 BP 91 / 76; Pulse 157; kb4 14:34 BP 80 / 49; Pulse 142; kb4 14:40 BP 90 / 76; Pulse 97; kb4 14:50 BP 105 / 75; Pulse 97; kb4 15:05 BP 116 / 96; Pulse 97; kb4 15:08 BP 116 / 69; Pulse 97; Resp 18; Pulse Ox 99% on R/A; kb4 15:10 BP 116 / 81; Pulse 97; kb4 15:42 BP 110 / 68; Pulse 99; kb4 16:00 BP 106 / 67; Pulse 99; kb4 16:10 BP 106 / 67; Pulse 97; Resp 18; Pulse Ox 100% on R/A; kb4 16:47 BP 119 / 63; Pulse 103; kb4 17:00 BP 85 / 53; Pulse 103; kb4 17:10 BP 132 / 75; Pulse 105; kb4 17:30 BP 88 / 74; Pulse 106; kb4 17:53 BP 88 / 71; Pulse 102; kb4 18:33 BP 124 / 40; Pulse 103; kb4 20:07 BP 95 / 58; Pulse 105; Resp 18 S; Temp 97.8(A); Pulse Ox 92% on R/A; ha1 22:11 BP 110 / 80; Pulse 115; Resp 22; Temp 97.9(A); Pulse Ox 95% on 2 lpm NC; kd3 MDM: 14:16 Medical Screening Exam initiated sb4 14:57 Differential diagnosis: Cardiac arrhythmia, ACS, aortic dissection, opioid abuse, sb4 pneumonia, sepsis. 15:40 Historians other than the Patient: Family Member: Daughter and son-in-law state that sb4 patient is usually completely weak, this is very unusual from her baseline. States that she has been having issues with her back fracture 2 days ago, but then sustained a fall and has not been acting herself since. 15:51 Post IV fluid administration reassessment for Sepsis: Client prescribed 30 mL/kg IVF. sb4 Sepsis focused reassessment complete. 17:09 Management of patient was discussed with the following: Hospitalist: Dr. Chambers, [facility] accepts patient for admission. requests VBG and additional fluid bolus. 17:12 Data reviewed: vital signs, nurses notes, EMS record, lab test result(s), EKG, sb4 radiologic studies, I have discussed the patient's presentation/case with the attending Emergency Department Physician; and as a result, I will admit patient. Consideration of Admission/Observation Patient was admitted/placed on observation. Counseling: I had a detailed discussion with the patient and/or guardian regarding the historical points, exam findings, and any diagnostic results supporting the discharge/admit diagnosis, lab results, radiology results, the need for further work-up and treatment in the hospital. 18:13 ED course: Patient has received sepsis fluids bolus, notified admitting physician of pH sb4 of 7.19, Dr Chambers requests additional fluid resuscitation with lactated Ringer's 500 mL for her low pH. 08/02 14:17 Order name: Basic Metabolic Panel; Complete Time: 15:44 sb4 08/02 14:17 Order name: CBC with Diff; Complete Time: 17:39 sb4 08/02 14:17 Order name: LFT's; Complete Time: 15:44 sb4 08/02 14:17 Order name: Magnesium; Complete Time: 15:44 sb4 08/02 14:17 Order name: NT PRO-BNP; Complete Time: 15:44 sb4 08/02 14:17 Order name: PT-INR; Complete Time: 15:27 sb4 08/02 14:17 Order name: Troponin HS; Complete Time: 15:44 sb4 08/02 14:17 Order name: Acetaminophen; Complete Time: 15:44 sb4 08/02 14:17 Order name: ETOH Level; Complete Time: 15:44 sb4 08/02 14:17 Order name: Salicylate; Complete Time: 15:47 sb4 08/02 14:17 Order name: Urine Drug Screen; Complete Time: 15:24 sb4 08/02 14:27 Order name: Blood Culture Adult (2) sb4 08/02 14:27 Order name: Lactate w/ 2H reflex if indic.; Complete Time: 15:47 sb4 08/02 14:42 Order name: UA Rfx Stefano Cult if indicated; Complete Time: 15:47 sb4 08/02 15:47 Order name: Ghost Lactate-NO COLLECT Timer; Complete Time: 17:46 EDMS 08/02 15:48 Order name: Urine Culture EDMS 08/02 17:31 Order name: COVID-19 Ag + Flu A+B Ag sb4 08/02 17:31 Order name: Group A Streptococcus Rapid sb4 08/02 17:37 Order name: Manual Differential; Complete Time: 17:39 EDMS 08/02 17:37 Order name: CBC Smear Scan EDMS 08/02 17:40 Order name: VBG; Complete Time: 18:14 sb4 08/02 17:58 Order name: Creatine Phosphokinase; Complete Time: 21:48 EDMS 08/02 17:58 Order name: Lactate w/ 2H reflex if indic.; Complete Time: 21:39 EDMS 08/02 17:58 Order name: CBC with Automated Diff EDMS 08/02 17:58 Order name: CBC with Automated Diff EDMS 08/02 17:58 Order name: Comprehensive Metabolic Panel EDMS 08/02 17:58 Order name: Comprehensive Metabolic Panel EDMS 08/02 17:58 Order name: Magnesium EDMS 08/02 17:58 Order name: Magnesium EDMS 08/02 17:58 Order name: Phosphorus EDMS 08/02 17:58 Order name: Phosphorus EDMS 08/02 17:58 Order name: T4 Free EDMS 08/02 17:58 Order name: T4 Free EDMS 08/02 17:58 Order name: Thyroid Stimulating Hormone EDMS 08/02 17:58 Order name: Thyroid Stimulating Hormone EDMS 08/02 18:33 Order name: Lactate Sepsis 2 HR Follow-up; Complete Time: 18:34 EDMS 08/02 14:17 Order name: XRAY Chest (1 view); Complete Time: 16:38 sb4 08/02 15:40 Order name: Head C Spine MPR Wo Con CT; Complete Time: 16:57 sb4 08/02 15:54 Order name: CT Chest Abdomen Pelvis W/O Contrast; Complete Time: 16:48 sb4 08/02 18:21 Order name: Echo with Doppler EDMS 08/02 14:17 Order name: Cardiac monitoring; Complete Time: 14:19 sb4 08/02 14:17 Order name: EKG - Nurse/Tech; Complete Time: 14:19 sb4 08/02 14:17 Order name: IV Saline Lock; Complete Time: 14:19 sb4 08/02 14:17 Order name: Labs collected and sent; Complete Time: 14:19 sb4 08/02 14:17 Order name: O2 Per Protocol; Complete Time: 14:19 sb4 08/02 14:17 Order name: O2 Sat Monitoring; Complete Time: 14:19 sb4 08/02 15:09 Order name: Schmitz: VO at 1430 ; Complete Time: 15:09 aa5 EC:10 Rate is 155 beats/min. Rhythm is irregularly irregular, A fib. QRS interval is normal sb4 at 80 msec. QT interval is normal at 292 msec. Clinical impression: Atrial Fibrillation and with RVR. Interpreted by me. Reviewed by me. 14:39 Rate is 97 beats/min. Rhythm is regular, Normal Sinus Rhythm. VA interval is normal at sb4 150 msec. QRS interval is normal at 82 msec. QT interval is normal at 346 msec. Clinical impression: No evidence of ischemia. Interpreted by me. Reviewed by me. Administered Medications: 14:17 Drug: NS 0.9% IV (30 ml/kg) 30 ml/kg IV at bolus once; Sepsis Protocol; bolus over 90 aa5 minutes. VO at 1417 Route: IV; Rate: bolus; Site: right upper arm; 15:47 Follow up: IV Status: Completed infusion; IV Intake: 2500ml aa5 14:25 Drug: Digoxin IVP 0.5 mg IVP once Route: IVP; Site: left hand; jb4 14:45 Follow up: Response: No adverse reaction kb4 14:33 CANCELLED (Inappropriate at this time): metoprolol2.5 mg IVP once; Hold for SBP <100 or sb4 HR <60. 14:44 Drug: Naloxone IVP 2 mg IVP once Route: IVP; Site: right antecubital; kb4 15:09 Follow up: Response: No adverse reaction kb4 15:51 Not Given (Physician Discretion): magnesium sulfate2 grams IVPB once over 2 hrs sb4 15:54 CANCELLED (Physician Discretion): ns 0.9% (30 ml/kg) 30 ml/kg IV at bolus once; 500 mL aa5 only for total of 2500 mL 15:56 CANCELLED (Physician Discretion): ns 0.9% 1000 ml IV at 1 bolus Per protocol; to be aa5 given as a bolus over 60 minutes 16:04 Drug: Rocephin IV 1 grams IV at calculated rate once; Given slow IV push per pharmacy kb4 instructions Route: IV; Rate: calculated rate; Site: right subclavian; 17:20 Drug: Piperacillin-Tazobactam IVPB 3.375 grams IVPB once over 60 mins; (mix in NS 100 aa5 mL) Route: IVPB; Infused Over: 60 mins; Site: right upper arm; 17:30 Follow up: Response: No adverse reaction aa5 18:00 Follow up: Response: No adverse reaction; IV Status: Completed infusion kb4 17:55 Drug: NS 0.9% IV 1000 ml IV at 1 bolus Per protocol; to be given as a bolus over 60 aa5 minutes Route: IV; Rate: 1 bolus; Site: right upper arm; 18:09 Follow up: Response: No adverse reaction kb4 18:39 Drug: lactated ringers Solution 500 ml IV at bolus once Route: IV; Rate: bolus; Site: kb4 right antecubital; 20:32 Drug: Albumin IVPB 25 grams 100 ml IVPB once; (Note: Albumin 25% concentration) Volume: kd3 100 ml; Route: IVPB; Site: right antecubital; Disposition Summary: 08/02/25 17:16 Hospitalization Ordered Notes: Hospitalization Status: Inpatient Admission sb4 Provider: Catia Davidson Location: Intensive Care Unit sb4 Condition: Fair sb4 Problem: new sb4 Symptoms: have improved sb4 Bed/Room Type: Standard sb4 Room Assignment: 1-(08/02/25 20:30) kl Diagnosis - Severe sepsis with septic shock sb4 - Aspiration pneumonia sb4 - UTI/ Urinary tract infection, site not specified sb4 - Atrial fibrillation - new onset sb4 - Transaminitis sb4 Forms: - Medication Reconciliation Form sb4 - SBAR form sb4 - Leadership Thank You Letter sb4 Critical care time excluding procedures: 17:12 Critical care time: Bedside Care: 25 minutes, Consultation: 5 minutes, Family sb4 Intervention: 10 minutes. Total time: 40 minutes Signatures: Dispatcher [employer] Joan Macdonald RN Trisha Cox RN RN aa5 Francesco Regalado, DRENCHER-C DRENCHER-Cla1 Braden Hernandez RN RN jb4 Kylee Rose RN RN kd3 Felicita Leonard RN RN ha1 Saira Ortega, PA-C PAColtenC sb4 Gaby Malin, RN RN kb4 Corrections: (The following items were deleted from the chart) 14:18 14:18 BASIC METABOLIC PANEL+C.LAB.BRZ ordered. EDMS EDMS 14:18 14:18 CBC+H.LAB.BRZ ordered. EDMS EDMS 14:18 14:18 HEPATIC FUNCTION+C.LAB.BRZ ordered. EDMS EDMS 14:18 14:18 MAGNESIUM+C.LAB.BRZ ordered. EDMS EDMS 14:18 14:18 PROBNP+C.LAB.BRZ ordered. EDMS EDMS 14:18 14:18 PROTIME (+INR)+COAG.LAB.BRZ ordered. EDMS EDMS 14:18 14:18 Troponin High Sensitivity+C.LAB.BRZ ordered. EDMS EDMS 14:18 14:18 ACETAMINOPHEN+C.LAB.BRZ ordered. EDMS EDMS 14:18 14:18 ETHANOL+C.LAB.BRZ ordered. EDMS EDMS 14:18 14:18 SALICYLATE+C.LAB.BRZ ordered. EDMS EDMS 14:18 14:18 URINE DRUG SCREEN+UC.LAB.BRZ ordered. EDMS EDMS 14:18 14:18 Chest Single View+RAD.RAD.BRZ ordered. EDMS EDMS 14:33 14:28 Metoprolol IVP 2.5 mg IVP once; Hold for SBP <100 or HR <60. ordered. sb4 sb4 14:51 14:49 Rate is 155 beats/min. Rhythm is irregularly irregular, A fib. QRS interval is sb4 normal at 80 msec. QT interval is normal at 292 msec. Clinical impression: Atrial Fibrillation and with RVR. Interpreted by me. Reviewed by me. sb4 15:40 15:40 Spine Lumbar Wo Con+CT.RAD.BRZ ordered. EDMS EDMS 15:54 15:49 NS 0.9% IV (30 ml/kg) 30 ml/kg IV at bolus once; 500 mL only for total of 2500 mL aa5 ordered. sb4 15:54 15:54 NS 0.9% IV (30 ml/kg) 30 ml/kg IV at bolus once; 500 mL only for total of 2500 mL aa5 given. aa5 15:54 15:54 NS 0.9% IV (30 ml/kg) 30 ml/kg IV at bolus once; 500 mL only for total of 2500 mL aa5 ordered. aa5 15:55 15:55 Chest Abdomen Pelvis Wo Con+CT.RAD.BRZ ordered. EDVA EDMS 15:56 14:17 NS 0.9% IV 1000 ml IV at 1 bolus Per protocol; to be given as a bolus over 60 aa5 minutes ordered. sb4 15:56 14:45 NS 0.9% IV 1000 ml IV at 1 bolus Per protocol; to be given as a bolus over 60 aa5 minutes given. aa5 15:56 15:56 NS 0.9% IV 1000 ml IV at 1 bolus Per protocol; to be given as a bolus over 60 aa5 minutes ordered. aa5 16:00 15:40 Thoracic Spine WO Cont+CT.RAD.BRZ ordered. EDVA EDMS 17:32 17:32 COVID-19 Ag + Flu A+B Ag+I.LAB.BRZ ordered. [facility] EDVA 20:30 17:16 sb4 kl 08/03 01:38 00:40 ED course: Patient has received sepsis fluids bolus, admitting physician requests sb4 additional fluid resuscitation with lactated Ringer's for her low pH. sb4 01:46 00:40 ED course: Patient has received sepsis fluids bolus, notified admitting physician sb4 of pH of 7.19, admitting physician requests additional fluid resuscitation with lactated Ringer's 500 mL for her low pH. sb4
--- NOTE | 2025-08-02 17:17 | ER ---
Nurse's Notes [facility] Name: Dave Luque Age: 65 yrs Sex: Female : 1960 Arrival Date: 08/02/2025 Time: 14:02 Bed 4 Private MD: Diagnosis: Severe sepsis with septic shock;Aspiration pneumonia;UTI/ Urinary tract infection, site not specified;Atrial fibrillation - new onset;Transaminitis Presentation: 08/02 14:13 Chief complaint: EMS states: PT WAS BROUGHT IN BY EMS, PT WAS FOUND IN BATHROOM BY kb4 FAMILY, FAMILY REPORTS PT NOT ACTING USUAL, PT WAS DIAPHORETIC, C/O OF nehemias LEG PAIN AND EXTREME WEAKNESS AND LETHARGY. Coronavirus screen: At this time, unable to obtain information related to travel outside the [place] Ebola Screen: No symptoms or risks identified at this time. 14:13 Method Of Arrival: EMS: [facility] kb4 14:13 Initial Sepsis Screen: Does the patient meet any 2 criteria? Mean Arterial Pressure kb4 (MAP) < 65. HR > 90 bpm. Yes Does the patient have a suspected source of infection? No. Patient's initial sepsis screen is negative. Risk Assessment: Do you want to hurt yourself or someone else? Patient reports no desire to harm self or others. Onset of symptoms is unknown. 14:13 Acuity: EMERSON 2 kb4 Triage Assessment: 14:13 General: Appears ill, Behavior is cooperative, anxious, restless. Pain: Complains of kb4 pain in right leg and left leg. Historical: - Allergies: 14:15 No Known Allergies; aa5 - PMHx: 14:15 Hypercholesterolemia; aa5 - PSHx: 14:15 rotator cuff; Tummy tuck; aa5 - Immunization history:: Adult Immunizations up to date. - Infectious Disease History:: Denies. - Social history:: Smoking status: unknown. Screenin:38 [facility] ED Fall Risk Assessment (Adult) History of falling in the last 3 months, kd3 including since admission Yes- fall prone (multiple falls) (3 pts) Confusion or Disorientation Yes (5 pts) Intoxicated or Sedated No (0 pts) Impaired Gait Yes (1 pt) Mobility Assist Device Used No (0 pt) Altered Elimination No (0 pt) Score/Fall Risk Level 3 or more points = High Risk Maintained a safe environment. Abuse screen: Denies threats or abuse. Denies injuries from another. Nutritional screening: No deficits noted. Tuberculosis screening: No symptoms or risk factors identified. Assessment: 14:15 Cardiovascular: Rhythm is atrial fibrillation with rapid ventricular response. kb4 14:15 Derm: Skin is clammy, diaphoretic, Skin is normal, Skin temperature is cool. kb4 14:15 Neuro: Level of Consciousness is obeys commands, confused, lethargic. kb4 15:00 Reassessment: Patient is alert, oriented x 3, equal unlabored respirations, skin kb4 warm/dry/pink. Neuro: Level of Consciousness is awake, alert, obeys commands. 15:12 Reassessment: Patient is alert, oriented x 3, equal unlabored respirations, skin kb4 warm/dry/pink. Cardiovascular: Rhythm is regular. Derm: Skin is dry, Skin is normal. 16:10 Reassessment: Patient is alert, oriented x 3, equal unlabored respirations, skin kb4 warm/dry/pink. family at bedside. General: Behavior is restless. 17:00 Reassessment: using bedpan for BM. kb4 21:38 General: Pt report given to Kati CARDENAS . kd3 22:10 General: Appears ill, Behavior is agitated. Neuro: Level of Consciousness is confused, kd3 lethargic, Oriented to person. Cardiovascular: Capillary refill < 3 seconds. Respiratory: Airway is patent Trachea midline Respiratory effort is even, Respiratory pattern is tachypnea. Vital Signs: 14:13 BP 90 / 54; Pulse 166; Resp 12; Temp 97.7; Pulse Ox 99% on R/A; Weight 82.55 kg; kb4 14:15 BP 91 / 76; Pulse 157; kb4 14:34 BP 80 / 49; Pulse 142; kb4 14:40 BP 90 / 76; Pulse 97; kb4 14:50 BP 105 / 75; Pulse 97; kb4 15:05 BP 116 / 96; Pulse 97; kb4 15:08 BP 116 / 69; Pulse 97; Resp 18; Pulse Ox 99% on R/A; kb4 15:10 BP 116 / 81; Pulse 97; kb4 15:42 BP 110 / 68; Pulse 99; kb4 16:00 BP 106 / 67; Pulse 99; kb4 16:10 BP 106 / 67; Pulse 97; Resp 18; Pulse Ox 100% on R/A; kb4 16:47 BP 119 / 63; Pulse 103; kb4 17:00 BP 85 / 53; Pulse 103; kb4 17:10 BP 132 / 75; Pulse 105; kb4 17:30 BP 88 / 74; Pulse 106; kb4 17:53 BP 88 / 71; Pulse 102; kb4 18:33 BP 124 / 40; Pulse 103; kb4 20:07 BP 95 / 58; Pulse 105; Resp 18 S; Temp 97.8(A); Pulse Ox 92% on R/A; ha1 22:11 BP 110 / 80; Pulse 115; Resp 22; Temp 97.9(A); Pulse Ox 95% on 2 lpm NC; kd3 Vitals: 16:10 Cardiac Rhythm Assessment Regular. Cardiac Rhythm Assessment Regular. kb4 ED Course: 14:13 Patient arrived in ED. eb 14:13 Arm band placed on right wrist. EKG completed in triage. Results shown to MD. kb4 14:13 Patient has correct armband on for positive identification. Placed in gown. Bed in low aa5 position. Call light in reach. Side rails up X2. Client placed on continuous cardiac and pulse oximetry monitoring. NIBP monitoring applied. desk monitor on. Pulse ox on. NIBP on. 14:16 Saira Ortega PA-C is PHCP. sb4 14:16 Corey Evans MD is Attending Physician. sb4 14:25 Inserted saline lock: 20 gauge in right upper arm, using aseptic technique. Flushed aa5 with 10 mL NS. 14:35 First set of blood cultures drawn by me. aa5 14:38 EKG done, by ED staff, reviewed by Saira Ortega PA-C. aa5 14:44 Gaby Malin, RN is Primary Nurse. kb4 14:49 Initial lab(s) drawn, by me, sent to lab. Second set of blood cultures drawn by me. aa5 14:50 Schmitz cath inserted, using sterile technique, 16 Fr., by ED staff, balloon inflated, to aa5 gravity drainage, urine specimen collected. other sent to lab. 14:59 Triage completed. kb4 16:16 XRAY Chest (1 view) In Process Unspecified. EDMS 16:31 Head C Spine MPR Wo Con CT In Process Unspecified. EDMS 16:31 CT Chest Abdomen Pelvis W/O Contrast In Process Unspecified. EDMS 17:15 Catia Davidson MD is Hospitalizing Provider. sb4 21:39 No provider procedures requiring assistance completed. Patient admitted, IV remains in kd3 place. 21:40 Provided Education on: ICU admit . kd3 Administered Medications: 14:17 Drug: NS 0.9% IV (30 ml/kg) 30 ml/kg IV at bolus once; Sepsis Protocol; bolus over 90 aa5 minutes. VO at 1417 Route: IV; Rate: bolus; Site: right upper arm; 15:47 Follow up: IV Status: Completed infusion; IV Intake: 2500ml aa5 14:25 Drug: Digoxin IVP 0.5 mg IVP once Route: IVP; Site: left hand; jb4 14:45 Follow up: Response: No adverse reaction kb4 14:33 CANCELLED (Inappropriate at this time): metoprolol2.5 mg IVP once; Hold for SBP <100 or sb4 HR <60. 14:44 Drug: Naloxone IVP 2 mg IVP once Route: IVP; Site: right antecubital; kb4 15:09 Follow up: Response: No adverse reaction kb4 15:51 Not Given (Physician Discretion): magnesium sulfate2 grams IVPB once over 2 hrs sb4 15:54 CANCELLED (Physician Discretion): ns 0.9% (30 ml/kg) 30 ml/kg IV at bolus once; 500 mL aa5 only for total of 2500 mL 15:56 CANCELLED (Physician Discretion): ns 0.9% 1000 ml IV at 1 bolus Per protocol; to be aa5 given as a bolus over 60 minutes 16:04 Drug: Rocephin IV 1 grams IV at calculated rate once; Given slow IV push per pharmacy kb4 instructions Route: IV; Rate: calculated rate; Site: right subclavian; 17:20 Drug: Piperacillin-Tazobactam IVPB 3.375 grams IVPB once over 60 mins; (mix in NS 100 aa5 mL) Route: IVPB; Infused Over: 60 mins; Site: right upper arm; 17:30 Follow up: Response: No adverse reaction aa5 18:00 Follow up: Response: No adverse reaction; IV Status: Completed infusion kb4 17:55 Drug: NS 0.9% IV 1000 ml IV at 1 bolus Per protocol; to be given as a bolus over 60 aa5 minutes Route: IV; Rate: 1 bolus; Site: right upper arm; 18:09 Follow up: Response: No adverse reaction kb4 18:39 Drug: lactated ringers Solution 500 ml IV at bolus once Route: IV; Rate: bolus; Site: kb4 right antecubital; 20:32 Drug: Albumin IVPB 25 grams 100 ml IVPB once; (Note: Albumin 25% concentration) Volume: kd3 100 ml; Route: IVPB; Site: right antecubital; Medication: 21:40 VIS not applicable for this client. kd3 Intake: 15:47 IV: 2500ml; Total: 2500ml. aa5 Outcome: 17:16 Decision to Hospitalize by Provider. sb4 21:39 Admitted to ICU accompanied by nurse, via stretcher, with oxygen, on monitor, kd3 21:39 Condition: stable 21:39 Discharge instructions given to patient, family, Instructed on the need for admit, Demonstrated understanding of instructions, 22:12 Patient left the ED. kd3 Signatures: Dispatcher [employer] EDMS Trisha Logan, RN RN aa5 Braden Hernandez, RN RN jb4 Kaelyn Harris Kyli RN RN kd3 Felicita Leonard, RN RN cheli1 Saira Ortega PAColtenC PAColtenC sb4 Gaby Malin, RN RN kb4 Corrections: (The following items were deleted from the chart) 15:54 15:49 NS 0.9% IV (30 ml/kg) 2476.5 mL IV at bolus in right antecubital aa5 aa5 15:56 14:17 NS 0.9% IV 1000 ml IV at 1 bolus in left upper arm aa5 aa5 17:59 17:20 NS 0.9% IV 1000 ml IV at 1 bolus in right upper arm aa5 aa5 18:07 14:15 Neuro: Level of Consciousness is awake, alert, obeys commands, Oriented to kb4 person, place, time, situation, kb4 18:07 14:15 Respiratory: Airway is patent Respiratory effort is even, unlabored, Respiratory kb4 pattern is regular, symmetrical, kb4
[2025-08-02 17:36] LABS: Blood Morphology Comment NOT SEEN (NOT SEEN); Differential Total Cells Count 100; Segmented Neutrophils 37 % (40-80); White Blood Cell Scan DIFF (OK)
[2025-08-02] MEDS ORDERED: ACETAMINOPHEN 650MG/RECT SUPP RECT PRN (17:49)
[2025-08-02] MEDS ORDERED: ONDANSETRON 4 MG/2 ML VIAL IV PRN (17:49)
[2025-08-02] MEDS ORDERED: NA CHLORIDE 0.9% 1,000 ML ONE (17:49)
[2025-08-02] MEDS: D5 0.9 NS 1,000 ML IV SCH (18:00)
--- NOTE | 2025-08-02 18:02 | P.HP ---
Certification for Inpatient Patient admitted to: Inpatient With expected LOS: >2 Midnights Practitioner: I am a practitioner with admitting privileges, knowledge of patient current condition, hospital course, and medical plan of care. Services: Services provided to patient in accordance with Admission requirements found in Title 42 Section 412.3 of the Code of Federal Regulations Patient History Date of Service: 08/02/25 Reason for admission: Altered mental status History of Present Illness: 65-year-old man with a history of chronic pain syndrome on [place] was brought to the emergency department due to lethargy. According to significant other, patient started complaining of leg pain and leg back pain, later became sluggish, patient admitted to taking [place]. Family called EMS who found her hypotensive and gave her a bolus of normal saline. Patient was also in atrial fibrillation. She was given a dose of IV metoprolol. Patient evaluated in the ED and found to be lethargic, however oriented to person and place, and slow to respond. Blood work showed leukopenia and thrombocytopenia, lactic acid severely elevated to 7, BMP showed anion gap metabolic acidosis, and elevated creatinine above baseline suggestive of NERY. Toxicology screen positive for benzodiazepine and opiates. Chest x-ray demonstrated patchy opacities with pneumonia suspected. Urine analysis grossly indicate urinary tract infection. Her systolic blood pressure was 88 during my examination in the ED. Patient given multiple bolus of normal saline. She was given IV digoxin for atrial fibr illation and later IV Rocephin after blood cultures were drawn. Patient is admitted to the ICU for further management. Allergies No Known Allergies Allergy (Unverified 08/29/22 20:08) Home Medications: Atorvastatin Calcium 40 mg PO BEDTIME 08/02/25 Meloxicam 15 mg PO DAILY 08/02/25 Paroxetine HCl [Paxil] 40 mg PO DAILY 08/02/25 Pregabalin 100 mg PO DAILY 08/02/25 Trazodone HCl 100 mg PO BEDTIME 08/02/25 buPROPion HCL [Bupropion Xl] 300 mg PO DAILY 08/02/25 - Past Medical/Surgical History -: Chronic pain syndrome -: Bicep tendon repair -: Tummy Turishi Psychosocial/ Personal History: Patient is . - Social History Alcohol use: No CD- Drugs: No Caffeine use: Yes Review of Systems Other: No reported vomiting, no reported diarrhea. No seizures reported. I am unable to obtain full review of systems due to altered mental status. Physical Examination - Physical Exam General: Oriented x2, Moderate distress, Confused HEENT: Atraumatic, Normocephalic, PERRLA, Mucous membr. moist/pink, EOMI, Sclerae nonicteric Neck: Supple, JVD not distended Respiratory: Clear to auscultation bilaterally, Normal air movement Cardiovascular: No edema, Normal S1 S2, Irregular heart rate/rhythm Capillary refill: <2 Seconds Gastrointestinal: Normal bowel sounds, Soft and benign, Non-distended, No ascites, No tenderness Musculoskeletal: No swelling, No tenderness Integumentary: No rashes, No cyanosis Neurological: Normal strength at 5/5 x4 extr, Cranial nerves 3-12 intact Lymphatics: No axilla or inguinal lymphadenopathy - Studies Laboratory Data (last 24 hrs) 08/02/25 08/02/25 08/02/25 14:49 14:49 14:49 WBC 2.70 L Hgb 13.2 Hct 40.2 Plt Count 116 L PT 13.6 H INR 1.21 Sodium 138 Potassium 4.7 BUN 42 H Creatinine 1.41 H Glucose 102 Magnesium 2.4 Total Bilirubin 1.3 H AST 405 H ALT 309 H Alkaline Phosphatase 263 H Assessment and Plan - Plan Diagnosis Septic shock Acute cystitis with hematuria Pneumonia Metabolic encephalopathy Polypharmacy Acute kidney injury Anion gap metabolic acidosis Lactic acidosis Elevated LFT Pancytopenia Plan: Septic shock Acute cystitis with hematuria Pneumonia Septic shock likely secondary to UTI. Patient with severely elevated lactic acid Admit patient to the ICU. Repeat 500 ml bolus RL given that patient's SBP is 88. Start vasopressors if patient remain hypotensive. Check ABG to evaluate pH. Serial lactate measurement. Aggressive IV hydration-D5 NS. Keep n.p.o. Neurochecks. Start IV cefepime and vancomycin, follow cultures. Monitor CBC. Metabolic encephalopathy Polypharmacy Metabolic encephalopathy secondary to polypharmacy and septic shock. IV fluid and antibiotics as above. Avoid psychotropic medications for now. Neurochecks. Acute kidney injury Anion gap metabolic acidosis Aggressive IV hydration VBG to check pH. Monitor renal function. Nephrology consult in a.m. if NERY does not resolve. Elevated LFT CT abdomen pelvis shows unremarkable liver. Elevated LFT likely secondary to sepsis Supportive measures Monitor LFT. Atrial fibrillation New onset, probably triggered by electrolyte abnormalities and septic shock IV fluid resuscitation. Cardiology consult. Patient with thrombocytopenia so we will avoid anticoagulation for now. Obtain echocardiogram. Pancytopenia Probably secondary to sepsis Monitor CBC Avoid anticoagulation. DVT prophylaxis: SCD CODE STATUS: Full code Critical care time spent managing patient's septic shock, encephalopathy is about 48 minutes. Total time spent reviewing medical records obtaining history and physical examination, documentation and coordination of care was about 86 minutes. - Advance Directives Does patient have a Living Will: No Does patient have a Durable POA for Healthcare: No
[2025-08-02 18:09] LABS: PCO2, Venous Blood Gas 49 mmHg (41-51); PO2, Venous Blood Gas 87 mmHg (25-40)
[2025-08-02 18:10] LABS: Base Excess, VBG -9.5 mmol/L (-2.0-3.0); HCO3, Venous Blood Gas 18.7 mmol/L (21.0-29.0); O2 Saturation, VBG 94.0 % (40.0-70.0)
[2025-08-02 18:13] LABS: PH, Venous Blood Gas 7.19 (7.32-7.42)
[2025-08-02] MEDS ORDERED: Ringers Lactate 1,000 ML IV ONE (18:28)
[2025-08-02] MEDS ORDERED: ACETAMINOPHEN 650MG/RECT SUPP PR PRN (19:14)
--- NOTE | 2025-08-02 19:41 | P.INFCA ---
Sepsis Focused Assessment - Sepsis Screen Result Septic Shock: Positive - Evaluation Current stage of sepsis: Septic shock - Vital Signs Reviewed: Yes Heart rate: 106 Blood Pressure: 88/74 O2 Sat by Pulse Oximetry: 94 - Examination Heart: Irregular rhythm, S1, S2, Tachycardia, Irregularly irregular Lungs: Clear bilaterally Peripheral pulses: 2+ Slightly diminished Peripheral pulse location: Radial Capillary refill: >2 Seconds Skin examination: Normal turgor
[2025-08-02] MEDS ORDERED: ALBUMIN HUMAN 25% 100 ML IV ONE (20:16)
[2025-08-02] MEDS ORDERED: NA CHLORIDE 0.9% 0 ML ONE (20:16)
[2025-08-02] MEDS ORDERED: VANCOMYCIN 1 GM/VIAL ONE ×3 (20:16→21:09)
[2025-08-02] MEDS ORDERED: D5 0.9 NS 1,000 ML IV ONE (20:17)
[2025-08-02] MEDS: VANCOMYCIN 2 GM in NA CHLORIDE 0.9% 500 ML IVPB ONE (20:30)
[2025-08-02 22:50] VITALS: BMI 32.2
[2025-08-02] MEDS: NOREPINEPHRINE BITARTRATE/D5W 4 MG/250 ML KIT IV ONE (23:33)
[2025-08-02] MEDS: NA CHLORIDE 0.9% 500 ML ONE (23:39)
[2025-08-02] MEDS: NOREPINEPHRINE 4 MG in D5W 250 ML IV SCH (23:40)
[2025-08-02] MEDS: NA CHLORIDE 0.9% 1,000 ML IV ONE (23:46)
[2025-08-02] MEDS: NA CHLORIDE 0.9% 1,000 ML ONE (23:46)
[2025-08-03] MEDS: SODIUM BICARB 50 MEQ/50ML VIAL ONE ×2 (00:01→00:21)
[2025-08-03] MEDS: D50W 25 GM/50 ML SYRINGE IV ONE ×2 (00:14→00:24)
[2025-08-03] MEDS: D5W 1,000 ML IV ONE (00:21)
[2025-08-03] MEDS: D5W 1,000 ML with NA BICARB 8.4% 100 MEQ IV SCH (00:21)
[2025-08-03] MEDS: VASOPRESSIN 20 UNIT/ML VIAL ONE (00:30)
[2025-08-03] MEDS: NA CHLORIDE 0.9% 250 ML ONE (00:30)
[2025-08-03] MEDS: NOREPINEPHRINE BITARTRATE/D5W 4 MG/250 ML KIT IV ONE (00:34)
[2025-08-03] MEDS: VASOPRESSIN 80 UNIT in NA CHLORIDE 0.9% 250 ML IV SCH (00:35)
[2025-08-03] MEDS ORDERED: AMIODARONE IN DEXTROSE,ISO-OSM 360 MG/200 ML BAG IV SCH (00:45)
[2025-08-03] MEDS: AMIODARONE IN DEXTROSE,ISO-OSM 360 MG/200 ML BAG IV ONE (00:45)
[2025-08-03 00:51] LABS: Base Excess, VBG -20.8 mmol/L (-2.0-3.0); O2 Saturation, VBG 99.4 % (40.0-70.0); PCO2, Venous Blood Gas 32 mmHg (41-51); PO2, Venous Blood Gas 206 mmHg (25-40)
[2025-08-03] MEDS ORDERED: Calcium Chloride 10% INJ SYR IV ONE (00:52)
[2025-08-03] MEDS ORDERED: LIDOCAINE 2% MPF 5 ML VIAL IV ONE (00:52)
[2025-08-03] MEDS ORDERED: EPINEPHrine 1 MG/10 ML SYR IV ONE (00:52)
[2025-08-03] MEDS ORDERED: AMIODARONE HCL 150 MG/3 ML INJ IV ONE (00:52)
[2025-08-03] MEDS ORDERED: ETOMIDATE 20 MG/10 ML VIAL IV ONE (00:52)
[2025-08-03] MEDS ORDERED: ROCURONIUM 50 MG/5 ML VIAL IV ONE (00:52)
[2025-08-03 00:53] LABS: HCO3, Venous Blood Gas 9.3 mmol/L (21.0-29.0); PH, Venous Blood Gas 7.07 (7.32-7.42)
[2025-08-03 01:19] LABS: ALT/SGPT 184.0 U/L (13-56); AST/SGOT 299.0 U/L (15-37); Albumin 1.2 g/dL (3.4-5.0); Albumin/Globulin Ratio 0.6 (1.1-1.8); Alkaline Phosphatase 143.0 U/L (45-117); Anion Gap 19.5 mEq/L (5.0-15.0); BUN Blood Urea Nitrogen 36.0 mg/dL (7-18); Globulin 2.1 g/dL (2.3-3.5); Magnesium 2.3 mg/dL (1.6-2.4)
[2025-08-03 01:21] LABS: Glucose Level 1155.0 mg/dL (74-106); Potassium 7.5 mEq/L (3.5-5.1)
[2025-08-03 01:22] LABS: Troponin High Sensitivity 345.2 pg/mL (<58.9)
[2025-08-03 01:28] LABS: Absolute Lymphocytes (CBC) 0.5 K/uL (0.7-4.9); Hematocrit 26.7 % (36.0-45.0); Hemoglobin 7.4 g/dL (12.0-15.0); MCH 31.0 pg (27.0-35.0); MCHC 27.6 g/dL (32.0-36.0); MCV 112.2 fL (80-100); MPV 10.7 fL (7.6-11.3); Nucleated RBC Absolute Count 0.1 (0-0); Nucleated Red Blood Cells % 1.8 % (0-0); RBC Red Blood Cell Count 2.38 M/uL (3.86-4.86); White Blood Count 3.20 thou/uL (4.3-10.9)
--- NOTE | 2025-08-03 01:35 | P.PN ---
Date of Service: 08/03/25 CODE BLUE note Went to see the patient Patient was hypotensive after fluids. Started on Levophed and titrated. The patient was gasping. Discussed with ER doctor He came to the floor intubated the patient. Placed on mechanical ventilator support. Blood pressure was still dropping so was added on vasopressin. Patient went into cardiac arrest. Resuscitation efforts was started with chest compressions and multiple medications including epi soda bicarb and calcium chloride. ACLS protocol used. In spite of the efforts patient did not make it and clinically and condolences offered to the family Discharge diagnoses : Cardiorespiratory arrest Acute hypoxic respiratory failure Septic shock Blood culture positive for MRSA and Klebsiella Urinary tract infection Hyperkalemia Acute kidney injury Multiorgan failure
[2025-08-03 02:05] VITALS: O2SAT 88
[2025-08-03 02:35] LABS: Differential Total Cells Count 100; Segmented Neutrophils 6 % (40-80)
[2025-08-03 02:36] LABS: Blood Morphology Comment NOTED (NOT SEEN); Macrocytosis 1+
[2025-08-03 04:22] VITALS: TEMP 98.8
[2025-08-03] MEDS ORDERED: VANCOMYCIN 1 GM in NA CHLORIDE 0.9% 250 ML IVPB SCH (09:00)
[2025-08-03] MEDS ORDERED: CEFEPIME 2 GM in NA CHLORIDE 0.9% 100 ML IV SCH (16:00)
[2025-08-03 20:15] VITALS: BP 88/74
--- NOTE | 2025-08-05 22:15 | P.DS ---
Admission Date: 08/02/25 Discharge Date: 08/02/25 Disposition: Discharge Condition: Reason for Admission: Altered mental status Brief History of Present Illness: Patient was admitted with sepsis Hospital Course: CODE BLUE note Went to see the patient Patient was hypotensive after fluids. Started on Levophed and titrated. The patient was gasping. Discussed with ER doctor He came to the floor intubated the patient. Placed on mechanical ventilator support. Blood pressure was still dropping so was added on vasopressin. Patient went into cardiac arrest. Resuscitation efforts was started with chest compressions and multiple medications including epi soda bicarb and calcium chloride. ACLS protocol used. In spite of the efforts patient did not make it and clinically and condolences offered to the family Discharge diagnoses : Cardiorespiratory arrest Acute hypoxic respiratory failure Septic shock Blood culture positive for MRSA and Klebsiella Urinary tract infection Hyperkalemia Acute kidney injury Multiorgan failure Vital Signs/Physical Exam: Temp Pulse Resp BP Pulse Ox 98.8 F 106 H 38 H 88/74 L 94 08/03/25 00:00 08/03/25 20:14 08/03/25 00:00 08/03/25 20:14 08/03/25 20:14 Laboratory Data at Discharge: WBC Cancelled 08/03/25 05:00 Hgb Cancelled 08/03/25 05:00 Hct Cancelled 08/03/25 05:00 Plt Count Cancelled 08/03/25 05:00 PT 13.6 SECONDS (10-13.0) H 08/02/25 14:49 INR 1.21 08/02/25 14:49 Sodium Cancelled 08/03/25 05:00 Potassium Cancelled 08/03/25 05:00 BUN Cancelled 08/03/25 05:00 Creatinine Cancelled 08/03/25 05:00 Glucose Cancelled 08/03/25 05:00 Phosphorus Cancelled 08/03/25 05:00 Magnesium Cancelled 08/03/25 05:00 Total Bilirubin Cancelled 08/03/25 05:00 AST Cancelled 08/03/25 05:00 ALT Cancelled 08/03/25 05:00 Alkaline Phosphatase Cancelled 08/03/25 05:00 Home Medications: Atorvastatin Calcium 40 mg PO BEDTIME 08/02/25 Meloxicam 15 mg PO DAILY 08/02/25 Paroxetine HCl [Paxil] 40 mg PO DAILY 08/02/25 Pregabalin 100 mg PO DAILY 08/02/25 Trazodone HCl 100 mg PO BEDTIME 08/02/25 buPROPion HCL [Bupropion Xl] 300 mg PO DAILY 08/02/25 Followup: ANDREW MORALES [Primary Care Provider] - Time spent managing pt's care (in minutes): 75
== END 2025-08-03 00:53 | disposition expired | DRG 871 ==
LOC: ER 14:02 → ERHOLD 17:48 → 3RD-ICU 21:37
PROVIDERS: ADMIT Internal Medicine; ATTEND Internal Medicine
PROC: 3E033XZ Introduction of Vasopressor into Peripheral Vein, Percutaneous Approach (ICD-10-PCS; principal; 2025-08-03)
PROC: 5A12012 Performance of Cardiac Output, Single, Manual (ICD-10-PCS; 2025-08-03)
PROC: 0T9B70Z Drainage of Bladder with Drainage Device, Via Natural or Artificial Opening (ICD-10-PCS; 2025-08-03)
DX: A41.02 Sepsis due to Methicillin resistant Staphylococcus aureus (principal); G92.8 Other toxic encephalopathy; J69.0 Pneumonitis due to inhalation of food and vomit; R65.21 Severe sepsis with septic shock; J96.01 Acute respiratory failure with hypoxia; E87.20 Acidosis, unspecified; N17.9 Acute kidney failure, unspecified; N30.01 Acute cystitis with hematuria; D61.818 Other pancytopenia; A41.89 Other specified sepsis; I48.91 Unspecified atrial fibrillation; I46.9 Cardiac arrest, cause unspecified; E87.5 Hyperkalemia; G89.4 Chronic pain syndrome; E78.00 Pure hypercholesterolemia, unspecified; B96.1 Klebsiella pneumoniae [K. pneumoniae] as the cause of diseases classified elsewhere; T43.8X5A Adverse effect of other psychotropic drugs, initial encounter; R74.01 Elevation of levels of liver transaminase levels; R79.89 Other specified abnormal findings of blood chemistry; Z11.52 Encounter for screening for COVID-19; Z79.899 Other long term (current) drug therapy
CPT/HCPCS: 36415; 51702; 70450; 71045; 71250; 72125; 74176; 80048; 80053; 80076; 80143; 80179; 80307; 81001; 82077; 82550; 82803; 82947; 83605; 83735; 83880; 84100; 84484; 85025; 85610; 87040; 87077; 87086; 87088; 87186; 87205; 92950; 93005; 94002; 99291; 99292; J0169; J0282; J0696; J1160; J2003; J2312; J2543; J3373; J7030; J7040; J7042; J7050; J7120; P9047